=== PATIENT | male | born 1955 | race Hispanic/Latino ===

== ENCOUNTER 2024-12-24 08:00 | Inpatient (IN) | payer OTHER, MEDICAID ==
[~2024-12-24] VITALS: Ht 175.3 cm; Wt 96.9 kg
[2024-12-24 11:47] LABS: IMMATURE GRANULOCYTE ABSOLUTE 0.03 K/uL (0-1); NUCLEATED RED BLOOD CELLS 0.0 % (0.0-0.19); PLATELET COUNT (AUTO) 343 K/uL (130-400); RED BLOOD CELL COUNT(AUTO) 4.73 MIL/uL (4.50-6.20); RED CELL DISTRIBUTION WIDTH 19.5 % (11.0-15.5); WHITE BLOOD COUNT (AUTO) 8.4 K/uL (4.8-10.8)
--- NOTE | 2024-12-24 11:47 | EKG ---
[facility] Test Date: 2024-12-24 Test Time: 11:33:22 Pat Name: KYLE CHASE Department: Room: 213 Gender: M Center Medical Specialist: [id number] : 1955 Requested By: KANE BHAKTA Order Number: [id number] Reading MD: Bartolo Mercado Measurements Intervals [place] Rate: 43 P: 0 AK: 0 QRS: -112 QRSD: 172 T: 0 QT: 684 QTc: 582 Interpretive Statements Atrial fibrillation Right bundle branch block Inferolateral infarct, old No previous ECG available for comparison Electronically Signed On 12-25-2024 16:03:00 CDT by Bartolo Mercado Please click the below link to view image of tracing.
[2024-12-24 12:05] LABS: INR 1.04 (0.85-1.15)
[2024-12-24 12:06] LABS: ASPARTATE AMINOTRANSFERASE 19.0 U/L (10-37); CREATININE 1.1 mg/dL (0.5-1.3); GLOMERULAR FILTR. RATE CALC 72.0 mL/min (>90); GLUCOSE,RANDOM 116.0 mg/dL (70-105); LDL DIRECT 61.0 mg/dL (0-99); SODIUM SERUM 132.0 mmol/L (136-145); TOTAL PROTEIN, SERUM 7.7 g/dL (6.0-8.3); UREA NITROGEN, BLOOD 15.0 mg/dL (7-18)
[2024-12-24 12:37] VITALS: BP 128/61; PULSE 50; RESP 17; TEMP 97.5
[2024-12-24] MEDS ORDERED: DAPA5TAB PO (12:42)
[2024-12-24] MEDS ORDERED: AMLO-257 PO (12:42)
[2024-12-24] MEDS ORDERED: APIX5TAB PO (12:42)
[2024-12-24] MEDS ORDERED: OMEP40CA21 PO (12:42)
[2024-12-24] MEDS ORDERED: ATOR20TA65 PO (12:42)
[2024-12-24] MEDS ORDERED: SACU1TAB PO (12:42)
[2024-12-24] MEDS ORDERED: IRON PO (12:42)
[2024-12-24] MEDS ORDERED: ISOS30TA92 PO (12:42)
--- NOTE | 2024-12-24 12:52 | HMCIMG ---
CHEST 1VW REASON: PREOP COMPARISON: None. FINDINGS: Single view of the chest was obtained. Lungs demonstrated diffuse interstitial fibrosis. Underlying interstitial pulmonary edema cannot be excluded.. There is cardiomegaly.. There is no pulmonary vascular congestion. Mediastinum and bony thorax appear unremarkable. There is a moderate-sized hiatal hernia. IMPRESSION: 1. Cardiomegaly 2. Prominence of interstitium suggesting of interstitial fibrosis but underlying disease or pulmonary edema cannot be excluded 3. There is a moderate-sized hiatal hernia.
[2024-12-24 13:32] LABS: ABG BASE EXCESS -2.8 mmol/L (-2.0-3.0); ABG HCO3 20.8 mmol/L (21.0-28.0); ABG OXYGEN SATURATION 91.6 % (94.0-98.0); ABG PCO2 32 mmHg (35-48); ABG PH 7.431 (7.350-7.450); CARBON MONOXIDE 1.3 % (0.5-1.5); DEVICE COMMENT RR CRYSTAL; PO2, ARTERIAL BG 63.6 mmHg (83.0-108.0); TEMPERATURE, CELSIUS BG 37.0 CELSIUS (35.5-37.0); VENT MODE, BG ROOM AIR (ROOM AIR)
--- NOTE | 2024-12-24 13:47 | NUR ---
PREOP INCENTIVE SPIROMETRY DONE BY AVERY CARDOZO
--- NOTE | 2024-12-24 13:51 | HMCIMG ---
EXAM: US Duplex Bilateral Carotid and Vertebral Arteries. CLINICAL HISTORY: SURGERY DATE [id number] TECHNIQUE: Real-time ultrasound scan of the bilateral carotid and vertebral arteries, 2-D ramirez scale, with color Doppler flow and spectral waveform analysis. COMPARISON: None provided. FINDINGS: Right Common Carotid Artery (CCA): PSV: 91 cm/s Soft calcified plaque. No occlusion or hemodynamically significant stenosis. Right Internal Carotid Artery (ICA): PSV: 161 cm/s ICA/CCA ratio: 1.8 (within normal limits). No occlusion or significant stenosis. Right External Carotid Artery (ECA): PSV: 129 cm/s Normal antegrade flow; no occlusion. Right Vertebral Artery: PSV: 39.0 cm/s Antegrade flow. Left Common Carotid Artery (CCA): PSV: 137 cm/s, raised. Soft calcified plaque. No occlusion or hemodynamically significant stenosis. Left Internal Carotid Artery (ICA): PSV: 126 cm/s ICA/CCA ratio: 0.9 (within normal limits). No occlusion or significant stenosis. Left External Carotid Artery (ECA): PSV: 205 cm/s, raised. Normal antegrade flow; no occlusion. Left Vertebral Artery: PSV: 62.0 cm/s Antegrade flow. SOFT TISSUES: No incidental abnormalities. IMPRESSION: 1. No hemodynamically significant stenosis in bilateral carotid or vertebral arteries. /[place]
--- NOTE | 2024-12-24 14:12 | NUR ---
REPORT REPORTED ABGS/PULMONARY FUNCTION TEST/CBC/BNP/CMP/CXR TO DELICIA ABRAHAM RN/DR SANTIAGO. DR SANTIAGO ALSO REVIEWED EKG. OK TO PROCEED
[2024-12-25] VITALS (86 sets, daily range): BP systolic 90–241; BP diastolic 35–238; PULSE 46–88; RESP 8–27; TEMP 96.9–99.1; O2SAT 97–100
[2024-12-25] MEDS ORDERED: HEParin-NS 1,000 UNIT/500 ML 500 ML IV ONE (06:25)
[2024-12-25] MEDS ORDERED: PAPAVERINE HCL 30 MG/ML 2ML VIAL ONE (06:25)
[2024-12-25] MEDS: 0.9%NACL 1000ML 1,000 ML IV ONE (07:26)
[2024-12-25] MEDS ORDERED: NITROGLYCERIN 50MG/D5W 250ML 1 BOT ONE (07:29)
[2024-12-25] MEDS ORDERED: DELNIDO FORMULA 1 BAG IV ONE (07:48)
[2024-12-25] MEDS ORDERED: LIDOCAINE PF 100MG/5ML (2%) SYRINGE 5ML ONE (07:55)
[2024-12-25] MEDS ORDERED: PROTamine SULFate 10 MG/ML 25ML VIAL IV ONE (07:55)
[2024-12-25] MEDS ORDERED: SODIUM BICARB 50MEQ 50ML VIAL 200 ML ONE (07:55)
[2024-12-25] MEDS ORDERED: NOREPINEPHRINE BITARTRATE 1 MG/1 ML ML IV ONE (07:55)
[2024-12-25] MEDS ORDERED: MIDAZOLAM HCL 1 MG/ML 2ML VIAL ONE (07:56)
[2024-12-25] MEDS ORDERED: MAGNESIUM HYDROXIDE 30 ML/UDCUP PO PRN (08:00)
[2024-12-25] MEDS ORDERED: LACTULOSE 20 GM/30 ML UDCUP PO PRN (08:00)
[2024-12-25] MEDS ORDERED: GLUCAGON 1MG KIT 1 MG ML IM PRN (08:30)
[2024-12-25] MEDS ORDERED: NOREPINEPHRINE BITARTRATE 8 MG in DEXTROSE 5%-WATER 250 ML IV PRN (08:30)
[2024-12-25] MEDS ORDERED: NITROGLYCERIN 50MG/D5W 250ML 250 BOT IV SCH (08:30)
[2024-12-25] MEDS: PAPAVERINE HCL 30 MG/ML 2ML VIAL IRRIG ONE (08:30)
[2024-12-25] MEDS ORDERED: DEXTROSE 50%-WATER 50 ML DISP.SYRIN IV PRN (08:30)
[2024-12-25] MEDS ORDERED: 0.9%NACL 10ML VIAL IVP PRN (08:30)
[2024-12-25] MEDS ORDERED: 0.9% NACL 500ML IV.SOLN 500 ML IV SCH (08:30)
[2024-12-25] MEDS: ENOXAPARIN SODIUM 30 MG/0.3 ML SQ SCH (09:00)
[2024-12-25 09:13] LABS: ABG BASE EXCESS -4.0 mmol/L (-2.0-3.0); ABG HCO3 21.9 mmol/L (21.0-28.0); ABG OXYGEN SATURATION 99.7 % (94.0-98.0); ABG PCO2 43 mmHg (35-48); ABG PH 7.324 (7.350-7.450); CARBON MONOXIDE 1.1 % (0.5-1.5); DEVICE COMMENT 1; PO2, ARTERIAL BG 378.4 mmHg (83.0-108.0); TEMPERATURE, CELSIUS BG 37.0 CELSIUS (35.5-37.0)
--- NOTE | 2024-12-25 10:00 | NUR ---
CABG TODAY. Addendum: 12/25/24 at 1514 by PARADISE CAAL PT Amended: Links added.
[2024-12-25 10:08] LABS: ABG BASE EXCESS -8.0 mmol/L (-2.0-3.0); ABG HCO3 20.0 mmol/L (21.0-28.0); ABG OXYGEN SATURATION 88.7 % (94.0-98.0); ABG PCO2 54 mmHg (35-48); ABG PH 7.190 (7.350-7.450); CARBON MONOXIDE 1.2 % (0.5-1.5); DEVICE COMMENT 2; PO2, ARTERIAL BG 70.8 mmHg (83.0-108.0); TEMPERATURE, CELSIUS BG 37.0 CELSIUS (35.5-37.0)
[2024-12-25] MEDS ORDERED: GLYCOPYRROLATE 0.2 MG/ML 5 ML VIAL ONE (10:30)
[2024-12-25 11:03] LABS: ABG BASE EXCESS -5.7 mmol/L (-2.0-3.0); ABG HCO3 20.2 mmol/L (21.0-28.0); ABG OXYGEN SATURATION 99.9 % (94.0-98.0); ABG PCO2 41 mmHg (35-48); ABG PH 7.309 (7.350-7.450); CARBON MONOXIDE 1.3 % (0.5-1.5); DEVICE COMMENT 3; PO2, ARTERIAL BG 264.9 mmHg (83.0-108.0); TEMPERATURE, CELSIUS BG 37.0 CELSIUS (35.5-37.0)
[2024-12-25] MEDS ORDERED: SODIUM BICARB 50MEQ 50ML VIAL 250 ML ONE (11:09)
[2024-12-25 11:40] LABS: ABG BASE EXCESS -3.8 mmol/L (-2.0-3.0); ABG HCO3 22.5 mmol/L (21.0-28.0); ABG OXYGEN SATURATION 99.1 % (94.0-98.0); ABG PCO2 47 mmHg (35-48); ABG PH 7.302 (7.350-7.450); CARBON MONOXIDE 1.0 % (0.5-1.5); PO2, ARTERIAL BG 203.4 mmHg (83.0-108.0); TEMPERATURE, CELSIUS BG 37.0 CELSIUS (35.5-37.0); VENT MODE, BG AMBU TRANSPORT (ROOM AIR)
[2024-12-25] MEDS: SODIUM BICARB 50MEQ 50ML VIAL IV PRN (11:54)
[2024-12-25] MEDS: VASOpressin 20 UNITS/ML 1ML Vi 40 UNITS in 0.9%NACL 50ML 40 ML IV SCH (11:58)
[2024-12-25 12:04] LABS: CREATININE 1.0 mg/dL (0.5-1.3); GLOMERULAR FILTR. RATE CALC 81.0 mL/min (>90); GLUCOSE,RANDOM 267.0 mg/dL (70-105); PHOSPHORUS 5.0 mg/dL (2.5-4.9); SODIUM SERUM 140.0 mmol/L (136-145); UREA NITROGEN, BLOOD 14.0 mg/dL (7-18)
[2024-12-25] MEDS: INSULIN REGULAR, HUMAN 3ML 100 UNIT in 0.9%NACL 100ML 99 ML IV SCH (12:10)
[2024-12-25] MEDS: 0.9%NACL 1000ML 1,000 ML IV SCH (12:13)
[2024-12-25] MEDS: FAMOTIDINE 20MG VIAL IV SCH (12:15)
--- NOTE | 2024-12-25 12:16 | HMCIMG ---
CHEST 1VW REASON: s/p CABG COMPARISON: Previous surgery chest radiograph from 12/24/2024 is available. FINDINGS: Study demonstrate the cardiac silhouette is within limits of normal with median sternotomy. There is diffuse interstitial pulmonary edema. The support lines including endotracheal tube left subclavian vascular sheath, left-sided chest tube and nasogastric tubes are in satisfactory position. IMPRESSION: 1 status post median sternotomy with cardiac revascularization procedure 2. Diffuse interstitial pulmonary edema 3. Support lines are in satisfactory position.
--- NOTE | 2024-12-25 12:21 | HMCIMG ---
CHEST 1VW REASON: s/p CABG reposition of ET COMPARISON: Earlier right radiograph from 11/24/2024 is available. FINDINGS: There is mild cardiomegaly mediastinum. There is diffuse interstitial pulmonary edema which is unchanged from earlier radiograph. Other support lines including endotracheal tube and nasogastric tube left-sided chest tube and left subclavian vascular sheath are in satisfactory position.. IMPRESSION: 1 support lines are in satisfactory position 2. Cardiomegaly with median sternotomy 3. Interstitial pulmonary edema which is unchanged from earlier radiograph..
[2024-12-25 12:31] LABS: NUCLEATED RED BLOOD CELLS 0.0 % (0.0-0.19); PLATELET COUNT (AUTO) 307.0 K/uL (130-400); RED BLOOD CELL COUNT(AUTO) 3.87 MIL/uL (4.50-6.20); RED CELL DISTRIBUTION WIDTH 18.8 % (11.0-15.5); WHITE BLOOD COUNT (AUTO) 24.1 K/uL (4.8-10.8)
--- NOTE | 2024-12-25 12:46 | HP ---
[facility] HISTORY & PHYSICAL Date Patient Seen: Dec 25, 2024 Time of Visit: 12:31 Supervising Physician: Berto Alba MD Primary Care Physician: Nahun Delarosa Outpatient Specialists: Dr Mercado (cardiology) Inpatient Consults: DR Bartolo FOLEY Attending physician: Dr. Bhakta PROBLEM LIST: CAD status post CABG x2 w/ GIANNA clip placement 12/25/[address] Bhakta Pacemaker dependent via epicardial leads Diastolic heart failure with the EF of 30-35% PER intraoperative MAIRA Intraoperative Afib RVR cardioverted x 2 Postop pulmonary edema Postoperative acute on chronic iron-deficiency anemia, POA Hyperglycemia with a A1c of 6.0 Electrolyte derangement (hypokalemia, hyperphosphatemia, hypomagnesemia) Cardiomyopathy Cardiomegaly Obesity BMI of 35.4 Comorbidities: Restrictive lung disease Essential hypertension Hyperlipidemia Atrial fibrillation on anticoagulation with the Eliquis last dose on 12/19/24 Iron-deficiency Chronic anemia Arthritis Hernia Former greater than 10 year smoker HPI: This is an obese, 69-year-old male with a past medical history of coronary artery disease, essential hypertension, arthritis, and restrictive pulmonary disease who presented to [facility] for elective CABG. Patient underwent CABG x2 and left atrial appendage clip today by Dr. Bhakta. Patient was seen and evaluated in room 213 in the ICU postop. Patient is currently on mechanical ventilation with settings of SIMV tidal volume of 650 respiratory rate of 12 FiO2 of 100% and PEEP of five. Saturating 100% on the monitor with a blood pressure of 88/45 map of 60 currently being paced at 80 heart rate via epicardial clips. Patient is receiving multiple infusion drips which include insulin at 5 units per hour, vasopressin at 0.02 units/minute, Levophed at 10 micrograms/minute, and epinephrine at 0.1 mcg/kg per minute. Chest tube in place with output of 160 mL sanguinous drainage in the last 20 minutes. There is minimal urine output via Astorga catheter. Cordis central line to left subclavian, left radial arterial line and ET tube which appears to be 6 cm above the karyn and a chest x-ray and has already being pushed in by RT a proximally 2 cm. Chest x-ray also shows bilateral pulmonary edema. Left leg is wrapped in place which is the harvesting extremity. Bilateral pedal pulses per Doppler. Is still appears to be sedated postop. We will continue to follow CV surgeon protocol and recommendations. Preop laboratory showed an H&H of 9.8/34.1 with a platelet count of 243 K. today's chemistries shows a sodium of 140 potassium of 3.3 glucose of 267 mg/dL in phosphorus of 5. On ABG patient has been pH of 7.30 pCO2 of 47 PO2 of 203 and bicarb 22.5. Lactic acid trending down to 4.04. PAST MEDICAL HX: see above PAST SURGICAL HX: noncontributory SOCIAL HISTORY: No tobacco, ETOH, or illicit drug use Coded Allergies: No Known Drug Allergies (Unverified Allergy, Unknown, 12/24/24) REVIEW OF SYSTEMS: Unable to perform due to patient's intubated. Post CABG. PHYSICAL EXAM: GENERAL: Intubated postop still sedated. HEENT: Sclera non icteric, moist mucosa NECK: Supple, no JVD, trachea midline LUNGS: Coarse crackles breath sounds bilaterally. No wheezes. Chest tube in place draining sanguinous HEART: Paced at 80 beats per minute via epicardial leads. ABD: Abdomen soft, nontender. Bowel sounds present EXT: No clubbing cyanosis or edema, left leg Wilfrid wrap. Bilateral pulses with Doppler. NEURO: Intubated due sedated postop Vital Signs (last 8hr) Date Time Temp Pulse Resp B/P (MAP) Pulse Ox O2 Delivery O2 Flow Rate FiO2 12/25/24 11:58 97/47 12/25/24 06:40 97.0 46 18 148/67 97 Room Air LABS: Hematology Labs: Test 12/24/24 11:30 Range/Units White Blood Count 8.4 4.8-10.8 K/uL Red Blood Count 4.73 4.50-6.20 MIL/uL Hemoglobin 9.8 L 14.0-18.0 g/dL Hematocrit 34.1 L 42-54 % Mean Corpuscular Volume 72.1 L 79-99 fL Mean Corpuscular Hemoglobin 20.7 L 27.0-33.0 pg Mean Corpuscular Hemoglobin Concent 28.7 L 32.0-36.0 g/dL Red Cell Distribution Width 19.5 H 11.0-15.5 % Platelet Count 343 130-400 K/uL Mean Platelet Volume 9.1 7.5-10.5 fL Immature Granulocyte % (Auto) 0.4 0-1 % Neutrophils (%) (Auto) 63.5 40.0-77.0 % Lymphocytes (%) (Auto) 18.0 L 21.0-51.0 % Monocytes (%) (Auto) 9.7 3.0-13.0 % Eosinophils (%) (Auto) 7.6 0.0-8.0 % Basophils (%) (Auto) 0.8 0.0-5.0 % Neutrophils # (Auto) 5.4 1.8-7.7 K/uL Lymphocytes # (Auto) 1.5 1.0-4.8 K/uL Monocytes # (Auto) 0.8 0.1-1.0 K/uL Eosinophils # (Auto) 0.64 0.00-0.70 K/uL Basophils # (Auto) 0.07 0.00-0.20 K/uL Absolute Immature Granulocyte (auto 0.03 0-1 K/uL Nucleated Red Blood Cells 0.0 0.0-0.19 % Red Blood Cell Morphology See comments Chemistry Labs: Test 12/25/24 11:40 12/24/24 11:30 Range/Units Sodium Level 140 136-145 mmol/L Potassium Level 3.3 L 3.5-5.1 mmol/L Chloride Level 103 101-111 mmol/L Carbon Dioxide Level 25 21-32 mmol/L Blood Urea Nitrogen 14 7-18 mg/dL Creatinine 1.0 0.5-1.3 mg/dL Glomerular Filtration Rate Calc 81 >90 mL/min Random Glucose 267 H 70-105 mg/dL Total Calcium 8.7 8.5-10.1 mg/dL Phosphorus Level 5.0 H 2.5-4.9 mg/dL Magnesium Level 1.90 1.80-2.40 mg/dL Hemoglobin A1c 6.0 4.0-6.0 % Estimated Average Glucose (eAG) 126 70-126 mg/dL Total Bilirubin 0.4 0.2-1.0 mg/dL Aspartate Amino Transf (AST/SGOT) 19 10-37 U/L Alanine Aminotransferase (ALT/SGPT) 18 12-78 U/L Alkaline Phosphatase 94 50-136 U/L B-Type Natriuretic Peptide 457 H 0-100 pg/mL Total Protein 7.7 6.0-8.3 g/dL Albumin 3.4 L 3.5-5.0 g/dL Triglycerides Level 97 30-200 mg/dL Cholesterol Level 120 <200 mg/dL LDL Cholesterol 61 0-99 mg/dL HDL Cholesterol 49 29-71 mg/dL Coagulation Labs: Test 12/24/24 11:30 Range/Units Prothrombin Time 11.0 9.6-11.6 SEC Prothromb Time International Ratio 1.04 0.85-1.15 Activated Partial Thromboplast Time 31.1 26.3-35.5 SEC DIAGNOSTICS / RADIOLOGY RESULTS: Signed PATIENT: KYLE CHASE MR#: [id number] : 1955 SEX: M AGE: 69 LOCATION: 2CV ORDER [id number] STATUS: ADM IN REPORT#: [id number] SERVICE 1152 REASON: s/p CABG reposition of ET ORDERING PHYSICIAN: KANE BHAKTA MD PROCEDURE: CXR1VW - CHEST 1VW CHEST 1VW REASON: s/p CABG reposition of ET COMPARISON: Earlier right radiograph from 11/24/2024 is available. FINDINGS: There is mild cardiomegaly mediastinum. There is diffuse interstitial pulmonary edema which is unchanged from earlier radiograph. Other support lines including endotracheal tube and nasogastric tube left-sided chest tube and left subclavian vascular sheath are in satisfactory position.. IMPRESSION: 1 support lines are in satisfactory position 2. Cardiomegaly with median sternotomy 3. Interstitial pulmonary edema which is unchanged from earlier radiograph.. DICTATED BY: ERIC DENTON MD DATE: 12/25/24 1217 ELECTRONICALLY SIGNED BY: ERIC DENTON MD DATE: 12/25/[address] surgeon recommendations Follow cardiology recommendations Multimodal pain management Monitoring H&H Monitor chest tube output Chest x-ray in the morning Start SBT's as tolerated Monitor ABGs Transfuse if absolutely necessary to keep hemoglobin above 8 Maintain O2 sats greater than 92% Incentive spirometry once extubated A1C Glycemic control with goal of 80-180 Referral for cardiac rehabilitation Speech to eval once patient is extubated monitor electrolytes: K Goal of 4 Magnesium goal of 2 Replace accordingly NEURO: Minimize central acting medications as possible. Maintain fall precautions, adequate lighting during the day PULMONARY: Supplemental 02 as needed. Maintain aspiration precautions at all times CARDIOVASCULAR: Follow hemodynamics. Vital signs per facility protocol GI & NUTRITION: Continue with nutritional support. Continue stool softeners and laxatives as needed. KIDNEYS & ELECTROLYTES: Strict monitoring of intake, output and overall fluid balance. Avoid nephrotoxic medications to the extent possible. Medications to be dosed according to renal function. Monitor electrolytes and replace as needed ENDOCRINE: Maintain blood glucose between 100-180 at all times. Hypoglycemia protocol in place INFECTIOUS DISEASE: Trend temperature, WBC and procalcitonin level Follow cultures, deescalate antibiotics as soon as possible. Panculture if new onset fever ONCOLOGY/HEMATOLOGY/COAGULATION: Monitor for s/s of bleeding Monitor hemoglobin, coagulation studies as needed SKIN: Pressure ulcer prevention per facility protocol Specialty mattress ORTHO/REHAB: Continue PT/OT Prophylaxis: Continue GI and DVT prophylaxis Code Status: Full Resuscitation Disposition: TBD Other: Total patient care time exceeds 35 minutes excluding all procedures. ATTESTATION BY PHYSICIAN The patient has been seen and evaluated, the case has been discussed with the INTELLIGENCE DIRECTOR, I agree with the clinical findings and plan of care. Berto Alba MD, [facility] Dec 25, 2024 12:46
[2024-12-25 12:49] LABS: ABG BASE EXCESS -3.2 mmol/L (-2.0-3.0); ABG HCO3 23.2 mmol/L (21.0-28.0); ABG OXYGEN SATURATION 99.6 % (94.0-98.0); ABG PCO2 48 mmHg (35-48); ABG PH 7.301 (7.350-7.450); CARBON MONOXIDE 0.9 % (0.5-1.5); PO2, ARTERIAL BG 364.8 mmHg (83.0-108.0); TEMPERATURE, CELSIUS BG 37.0 CELSIUS (35.5-37.0); VENT MODE, BG SIMV-VC PS10 (ROOM AIR)
[2024-12-25] MEDS: MAGNESIUM 2GM PREMIX 50ML 50 ML IV PRN (13:00)
[2024-12-25 13:03] LABS: INR 1.14 (0.85-1.15)
[2024-12-25] MEDS: ASPIRIN 81MG CHEW TAB NG ONE (13:15)
[2024-12-25] MEDS: ALBUMIN (HUMAN) 5% 250 ML IV PRN (13:21)
[2024-12-25 13:42] LABS: ABG BASE EXCESS 1.8 mmol/L (-2.0-3.0); ABG HCO3 28.5 mmol/L (21.0-28.0); ABG OXYGEN SATURATION 97.3 % (94.0-98.0); ABG PCO2 56 mmHg (35-48); ABG PH 7.325 (7.350-7.450); CARBON MONOXIDE 1.3 % (0.5-1.5); PO2, ARTERIAL BG 106.3 mmHg (83.0-108.0); TEMPERATURE, CELSIUS BG 37.0 CELSIUS (35.5-37.0); VENT MODE, BG SIMV-VC PS10 (ROOM AIR)
--- NOTE | 2024-12-25 14:02 | EKG ---
[facility] Test Date: 2024-12-25 Test Time: 11:47:45 Pat Name: KYLE CHASE Department: 2CV Room: 213 1 Gender: M Gis Physical Scientist: Gilberto AVILA : 1955 Requested By: KANE BHAKTA Order Number: [id number] Reading MD: Bartolo Mercado Measurements Intervals [place] Rate: 80 P: 0 IL: 131 QRS: 60 QRSD: 215 T: 0 QT: 580 QTc: 669 Interpretive Statements Ventricular-paced rhythm Compared to ECG 12/24/2024 11:33:22 Atrial fibrillation no longer present Right bundle-branch block no longer present Myocardial infarct finding no longer present Electronically Signed On 12-25-2024 16:06:41 CDT by Bartolo Mercado Please click the below link to view image of tracing.
[2024-12-25 14:33] LABS: ABG BASE EXCESS -0.5 mmol/L (-2.0-3.0); ABG HCO3 26.2 mmol/L (21.0-28.0); ABG OXYGEN SATURATION 97.4 % (94.0-98.0); ABG PCO2 54 mmHg (35-48); ABG PH 7.308 (7.350-7.450); CARBON MONOXIDE 0.9 % (0.5-1.5); PO2, ARTERIAL BG 114.5 mmHg (83.0-108.0); TEMPERATURE, CELSIUS BG 37.0 CELSIUS (35.5-37.0); VENT MODE, BG SIMV-VC PS10 (ROOM AIR)
--- NOTE | 2024-12-25 15:14 | CONS ---
Cardiac Consult Note CONSULT NOTE DATE OF SERVICE: REFERRING PROVIDER: ZAHIRA BARRAGAN MD REASON FOR CONSULT: Postoperative cardiovascular care HPI: 69-year-old female who is well known to us in the clinic who had a coronary angiogram revealing significant multivessel disease over the summer and is here today after having had surgical revascularization with a ENGLE to the LAD and a vein graft to the left circumflex system. Patient also had left atrial appendage ligated or removed. He is postop day 0. Currently sedated intubated on 3 pressor agents for maintenance of blood pressure. Chest tube output is minimal. Patient is moving upper extremities with some mild grimace taking place with movement. Last clinic evaluation in the office was in September 30 when he presented with a unstable angina at less than 20 ft of walking and it was recommended that he proceed with primary angiography revealing severe multivessel disease involving his left coronary system. ROS: Unobtainable PMHX: Multivessel disease status post CABG x2 postop day 0 Hypertension Dyslipidemia Persistent atrial fibrillation on chronic anticoagulation therapy with Eliquis Remote tobacco use Prior CVA Mild ischemic cardiomyopathy with an ejection fraction of 45-50% in September 2024 Lexiscan Cardiolite August 2023 revealing lateral and anterior wall ischemia PSHX: Inguinal inguinal hernia repair x3 FH: Positive for heart disease SOCIAL: Former smoker PHYSICAL EXAMINATION: GENERAL: Sedated intubated on 3 pressor agents HEENT: Normocephalic, atraumatic. CARDIAC: Positive S1 and S2. Distant heart sounds No murmurs. LUNGS: Clear to auscultation bilaterally. ABDOMEN: Bowel sounds present, soft, nontender. EXTREMITIES: No edema bilaterally. Entire entire left leg is wrapped and is site of graft harvest NEUROLOGIC: Cranial nerves 2-12 grossly intact. PSYCHIATRIC: Calm. ASSESSMENT: Severe multivessel coronary artery disease Status post coronary artery bypass grafting x2 on December 25, 2024 engle-lad, SVG- left circumflex system with left atrial appendage ligation PLAN: Currently we will continue regimen of medications. No other changes at this time. Postoperatively he is on 3 pressor agents which will be continued and managed by surgical team. We will continue to manage and assist through the weekend. Vital Signs 12/25/24 12/25/24 12/25/24 12/25/24 06:40 11:30 11:36 11:41 Temp 97.0 Pulse 46 80 80 Resp 18 12 12 B/P (MAP) 148/67 98/47 (64) 92/49 (63) 98/46 (63) Pulse Ox 97 100 100 O2 Delivery Room Air FiO2 100 100 100 12/25/24 12/25/24 12/25/24 12/25/24 11:45 11:56 11:58 12:00 Pulse 85 80 80 Resp 14 15 17 B/P (MAP) 90/57 (68) 104/49 (67) 97/47 105/50 (68) 103/49 (67) Pulse Ox 100 100 100 FiO2 100 100 100 12/25/24 12/25/24 12/25/24 12/25/24 12:11 12:15 12:27 12:30 Pulse 80 80 80 80 Resp 17 17 17 17 B/P (MAP) 115/53 (73) 122/53 (76) 97/41 (59) 98/40 (59) 114/57 (76) 103/44 (63) Pulse Ox 100 100 100 100 FiO2 100 100 100 100 12/25/24 12/25/24 12/25/24 12/25/24 12:41 12:45 12:47 12:56 Pulse 80 80 80 Resp 17 17 B/P (MAP) 112/40 (64) 108/39 (62) 109/39 (62) 101/51 (68) 101/48 (65) Pulse Ox 100 100 100 FiO2 100 100 50 12/25/24 12/25/24 12/25/24 13:00 13:11 13:42 Pulse 80 80 80 B/P (MAP) 110/39 (62) 108/40 (62) 101/49 (66) Pulse Ox 100 100 FiO2 50 Laboratory Tests Test 12/25/24 09:11 12/25/24 10:06 12/25/24 11:01 12/25/24 11:38 Blood Gas Specimen Type Arterial Arterial Arterial Arterial Arterial Blood pH 7.324 (7.350-7.450) 7.190 (7.350-7.450) 7.309 (7.350-7.450) 7.302 (7.350-7.450) Arterial Blood Partial Pressure CO2 43 mmHg (35-48) 54 mmHg (35-48) 41 mmHg (35-48) 47 mmHg (35-48) Arterial Blood Partial Pressure O2 378.4 mmHg (83.0-108.0) 70.8 mmHg (83.0-108.0) 264.9 mmHg (83.0-108.0) 203.4 mmHg (83.0-108.0) Arterial Blood HCO3 21.9 mmol/L (21.0-28.0) 20.0 mmol/L (21.0-28.0) 20.2 mmol/L (21.0-28.0) 22.5 mmol/L (21.0-28.0) Arterial Blood Oxygen Saturation 99.7 % (94.0-98.0) 88.7 % (94.0-98.0) 99.9 % (94.0-98.0) 99.1 % (94.0-98.0) Arterial Blood Base Excess -4.0 mmol/L (-2.0-3.0) -8.0 mmol/L (-2.0-3.0) -5.7 mmol/L (-2.0-3.0) -3.8 mmol/L (-2.0-3.0) Hemoglobin (Blood Gas) 9.6 g/dL (13.5-17.5) 9.5 g/dL (13.5-17.5) 9.0 g/dL (13.5-17.5) 9.2 g/dL (13.5-17.5) Sodium (Blood Gas) 134 MMOL/L (136-145) 134 MMOL/L (136-145) 136 MMOL/L (136-145) 138 MMOL/L (136-145) Bedside Potassium (Blood Gas) 4.0 MMOL/L (3.4-4.5) 3.6 MMOL/L (3.4-4.5) 3.2 MMOL/L (3.4-4.5) 3.3 MMOL/L (3.4-4.5) Bedside Chloride (Blood Gas) 104 MMOL/L (98-107) 105 MMOL/L (98-107) 104 MMOL/L (98-107) 104 MMOL/L (98-107) Bedside Glucose (Blood Gas) 119 MG/DL (65-95) 160 MG/DL (65-95) 277 MG/DL (65-95) 268 MG/DL (65-95) Bedside Ionized Calcium (Blood Gas) 1.27 MMOL/L (1.15-1.33) 1.23 MMOL/L (1.15-1.33) 1.26 MMOL/L (1.15-1.33) 1.20 MMOL/L (1.15-1.33) Bedside Lactic Acid (Blood Gas) 1.15 MMOL/L (0.36-0.75) 1.97 MMOL/L (0.36-0.75) 4.11 MMOL/L (0.36-0.75) 4.04 MMOL/L (0.36-0.75) Blood Gas Temperature 37.0 CELSIUS (35.5-37.0) 37.0 CELSIUS (35.5-37.0) 37.0 CELSIUS (35.5-37.0) 37.0 CELSIUS (35.5-37.0) FiO2 100.0 % 100.0 % 100.0 % 100.0 % Blood Gas Specimen Comment 1 2 3 A-LINE EUGENIA Blood Gas Flow-by 15.00 L/min (0.00-15.00) Blood Gas Vent Mode AMBU TRANSPORT (ROOM AIR) Test 12/25/24 11:40 12/25/24 12:46 12/25/24 13:40 12/25/24 14:31 White Blood Count 24.1 K/uL (4.8-10.8) Red Blood Count 3.87 MIL/uL (4.50-6.20) Hemoglobin 8.3 g/dL (14.0-18.0) Hematocrit 27.7 % (42-54) Mean Corpuscular Volume 71.6 fL (79-99) Mean Corpuscular Hemoglobin 21.4 pg (27.0-33.0) Mean Corpuscular Hemoglobin Concent 30.0 g/dL (32.0-36.0) Red Cell Distribution Width 18.8 % (11.0-15.5) Platelet Count 307 K/uL (130-400) Mean Platelet Volume 9.9 fL (7.5-10.5) Nucleated Red Blood Cells 0.0 % (0.0-0.19) Prothrombin Time 11.9 SEC (9.6-11.6) Prothromb Time International Ratio 1.14 (0.85-1.15) Activated Partial Thromboplast Time 27.9 SEC (26.3-35.5) Sodium Level 140 mmol/L (136-145) Potassium Level 3.3 mmol/L (3.5-5.1) Chloride Level 103 mmol/L (101-111) Carbon Dioxide Level 25 mmol/L (21-32) Blood Urea Nitrogen 14 mg/dL (7-18) Creatinine 1.0 mg/dL (0.5-1.3) Glomerular Filtration Rate Calc 81 mL/min (>90) Random Glucose 267 mg/dL (70-105) Total Calcium 8.7 mg/dL (8.5-10.1) Phosphorus Level 5.0 mg/dL (2.5-4.9) Magnesium Level 1.90 mg/dL (1.80-2.40) Blood Gas Specimen Type Arterial Arterial Arterial Arterial Blood pH 7.301 (7.350-7.450) 7.325 (7.350-7.450) 7.308 (7.350-7.450) Arterial Blood Partial Pressure CO2 48 mmHg (35-48) 56 mmHg (35-48) 54 mmHg (35-48) Arterial Blood Partial Pressure O2 364.8 mmHg (83.0-108.0) 106.3 mmHg (83.0-108.0) 114.5 mmHg (83.0-108.0) Arterial Blood HCO3 23.2 mmol/L (21.0-28.0) 28.5 mmol/L (21.0-28.0) 26.2 mmol/L (21.0-28.0) Arterial Blood Oxygen Saturation 99.6 % (94.0-98.0) 97.3 % (94.0-98.0) 97.4 % (94.0-98.0) Arterial Blood Base Excess -3.2 mmol/L (-2.0-3.0) 1.8 mmol/L (-2.0-3.0) -0.5 mmol/L (-2.0-3.0) Hemoglobin (Blood Gas) 9.5 g/dL (13.5-17.5) 9.3 g/dL (13.5-17.5) 9.6 g/dL (13.5-17.5) Sodium (Blood Gas) 139 MMOL/L (136-145) 142 MMOL/L (136-145) 142 MMOL/L (136-145) Bedside Potassium (Blood Gas) 3.6 MMOL/L (3.4-4.5) 3.5 MMOL/L (3.4-4.5) 3.3 MMOL/L (3.4-4.5) Bedside Chloride (Blood Gas) 102 MMOL/L (98-107) 102 MMOL/L (98-107) 103 MMOL/L (98-107) Bedside Glucose (Blood Gas) 266 MG/DL (65-95) 272 MG/DL (65-95) 264 MG/DL (65-95) Bedside Ionized Calcium (Blood Gas) 1.21 MMOL/L (1.15-1.33) 1.18 MMOL/L (1.15-1.33) 1.24 MMOL/L (1.15-1.33) Bedside Lactic Acid (Blood Gas) 3.72 MMOL/L (0.36-0.75) 5.10 MMOL/L (0.36-0.75) 6.45 MMOL/L (0.36-0.75) Blood Gas Temperature 37.0 CELSIUS (35.5-37.0) 37.0 CELSIUS (35.5-37.0) 37.0 CELSIUS (35.5-37.0) Blood Gas Respiration Rate 12.0 min. 12.0 min. 16.0 min. Blood Gas Vent Mode SIMV-VC PS10 (ROOM AIR) SIMV-VC PS10 (ROOM AIR) SIMV-VC PS10 (ROOM AIR) FiO2 100.0 % 50.0 % 50.0 % Blood Gas Tidal Volume 650 ml 650 ml 650 ml Blood Gas PEEP 5 cm H2O 5 cm H2O 5 cm H2O Blood Gas Specimen Comment A-LINE EUGENIA A-LINE EUGENIA A-LINE EUGENIA Current Medications Medications Dose Ordered Sig/Leonard Route PRN Reason Start Time Stop Time Status Last Admin Cefazolin Sodium 1 gm STK-MED ONCE .ROUTE 12/25/24 06:25 12/25/24 06:25 DC Heparin Sodium/ Sodium Chloride 500 ml @ As Directed STK-MED ONCE IV 12/25/24 06:25 12/25/24 06:25 DC Papaverine HCl 60 mg STK-MED ONCE .ROUTE 12/25/24 06:25 12/25/24 06:26 DC Cefazolin Sodium 2 gm STK-MED ONCE .ROUTE 12/25/24 07:05 12/25/24 07:11 DC Sodium Chloride 1,000 ml @ As Directed STK-MED ONCE IV 12/25/24 07:05 12/25/24 07:11 DC 12/25/24 07:26 Nitroglycerin/ Dextrose 1 ml @ As Directed STK-MED ONCE .ROUTE 12/25/24 07:29 12/25/24 07:34 DC Cardioplegic Solution 1 ml @ As Directed STK-MED ONCE IV 12/25/24 07:48 12/25/24 07:48 DC Protamine Sulfate 250 mg STK-MED ONCE IV 12/25/24 07:55 12/25/24 07:55 DC Lidocaine HCl 100 mg STK-MED ONCE .ROUTE 12/25/24 07:55 12/25/24 07:55 DC Heparin Sodium (Porcine) 10,000 unit STK-MED ONCE .ROUTE 12/25/24 07:55 12/25/24 07:55 DC Epinephrine HCl 1 mg STK-MED ONCE .ROUTE 12/25/24 07:55 12/25/24 07:55 DC Sodium Bicarbonate 200 ml @ As Directed STK-MED ONCE .ROUTE 12/25/24 07:55 12/25/24 07:55 DC Norepinephrine Bitartrate 4 mg STK-MED ONCE IV 12/25/24 07:55 12/25/24 07:55 DC Propofol 200 mg STK-MED ONCE IV 12/25/24 07:55 12/25/24 07:56 DC Fentanyl Citrate 1,000 mcg STK-MED ONCE IJ 12/25/24 07:56 12/25/24 07:56 DC Midazolam HCl 2 mg STK-MED ONCE .ROUTE 12/25/24 07:56 12/25/24 07:56 DC Rocuronium [place] 50 mg STK-MED ONCE .ROUTE 12/25/24 07:56 12/25/24 07:56 DC Acetaminophen 1,000 mg Q6H6 IV 12/25/24 12:00 12/26/24 11:59 12/25/24 13:17 Aspirin 81 mg ONCE ONCE NG 12/25/24 12:00 12/25/24 12:01 DC Aspirin 81 mg DAILY PO 12/26/24 09:00 01/25/25 08:59 Docusate Sodium 100 mg BID PO 12/25/24 21:00 01/24/25 20:59 Furosemide 20 mg Q12H PO 12/27/24 09:00 01/26/25 08:59 Furosemide 20 mg Q12H IV 12/26/24 09:00 12/27/24 08:59 Atorvastatin Calcium 40 mg HS PO 12/25/24 21:00 01/24/25 20:59 Enoxaparin Sodium 30 mg DAILY SQ 12/25/24 09:00 01/24/25 08:59 Metoprolol Tartrate 12.5 mg BID PO 12/27/24 09:00 01/26/25 08:59 Dexmedetomidine/ Sodium Chloride 400 mcg PROTOCOL IV 12/25/24 08:00 12/26/24 07:59 Ketamine HCl 500 mg STK-MED ONCE IJ 12/25/24 08:13 12/25/24 08:13 DC Sodium Chloride 1,000 ml @ 10 mls/hr ONCE IV 12/25/24 08:30 12/26/24 08:29 12/25/24 12:13 Sodium Chloride 500 ml @ 0 mls/hr AD IV 12/25/24 08:30 01/24/25 08:29 Nitroglycerin/ Dextrose 0 ml @ 0 mls/hr AD IV 12/25/24 08:30 12/28/24 08:29 Aminocaproic Acid 24998 mg/Sodium Chloride 310 ml @ 25 mls/hr AD IV 12/25/24 08:30 12/25/24 08:40 DC Insulin Human Regular 100 unit/ Sodium Chloride 100 ml @ 0 mls/hr AD IV 12/25/24 08:30 12/27/24 08:29 12/25/24 12:10 Cefazolin Sodium 2 gm Q8H IVPB 12/25/24 13:30 12/26/24 05:31 12/25/24 13:20 Famotidine 20 mg BID IV 12/25/24 09:00 01/24/25 08:59 12/25/24 12:15 Papaverine HCl 60 mg STK-MED ONCE IRRIG 12/25/24 08:30 12/25/24 10:08 DC 12/25/24 08:30 Cefazolin Sodium 1 gm STK-MED ONCE IRRIG 12/25/24 08:30 12/25/24 10:08 DC 12/25/24 08:30 Cefazolin Sodium 2 gm STK-MED ONCE IVPB 12/25/24 08:55 12/25/24 10:08 DC 12/25/24 08:55 Vasopressin 20 units STK-MED ONCE .ROUTE 12/25/24 10:14 12/25/24 10:15 DC Glycopyrrolate 1 mg STK-MED ONCE .ROUTE 12/25/24 10:30 12/25/24 10:30 DC Sodium Bicarbonate 250 ml @ As Directed STK-MED ONCE .ROUTE 12/25/24 11:09 12/25/24 11:10 DC Vasopressin 40 units/Sodium Chloride 40 ml @ 0 mls/hr PROTOCOL IV 12/25/24 12:00 01/24/25 11:59 12/25/24 11:58 Reported Medications Dapagliflozin Propanediol (Farxiga) 5 Mg Tablet, 5 MG PO DAILY, TAB 12/24/24 Apixaban (Eliquis) 5 Mg Tablet, 5 MG PO BID, TAB 12/24/24 [Iron] No Conflict Check, 45 MG PO WEEKLY 12/24/24 Sacubitril/Valsartan (Entresto 24 mg-26 mg Tablet) 24 Mg-26 Mg Tablet, 1 EACH PO BID, TAB 12/24/24 Amlodipine Besylate (Amlodipine Besylate) 5 Mg Tablet, 5 MG PO HS, TAB 12/24/24 Atorvastatin Calcium (Atorvastatin Calcium) 20 Mg Tablet, 20 MG PO HS, TAB 12/24/24 Isosorbide Mononitrate (Isosorbide Mononitrate ER) 30 Mg Tab.er.24h, 30 MG PO DAILY, TAB 12/24/24 Omeprazole (Omeprazole) 40 Mg Capsule.dr, 40 MG PO DAILY, CAP 12/24/24 ZAHIRA BARRAGAN MD Dec 25, 2024 15:14
--- NOTE | 2024-12-25 15:34 | NUR ---
SPEECH TRIGGER COMPLETED / INTUBATION Pt IS A 69 Y.O. MALE ADMITTED SECONDARY TO CAD. Pt HAS A PAST MEDICAL HISTORY SIGNIFICANT FOR CAD, HTN, ARTHRITIS AND RESTRICTIVE PULMONARY DISEASE. Pt CURRENTLY INTUBATED AND NPO. PLEASE REQUEST SPEECH THERAPY SERVICES FOR SKILLED BEDSIDE SWALLOW EVALUATION 24 HOURS POST EXTUBATION IF ANY S/S OF ASPIRATION ARISE WITH ORAL INTAKE. CARDIAC CARE NURSE COORDINATED WITH NURSE BELLO. ALL QUESTIONS ANSWERED AT THIS TIME. Addendum: 12/25/[address] [facility]TH[facility] BYRD Amended: Links added.
[2024-12-25 15:44] LABS: ABG BASE EXCESS -1.8 mmol/L (-2.0-3.0); ABG HCO3 24.1 mmol/L (21.0-28.0); ABG OXYGEN SATURATION 98.1 % (94.0-98.0); ABG PCO2 47 mmHg (35-48); ABG PH 7.332 (7.350-7.450); CARBON MONOXIDE 1.2 % (0.5-1.5); PO2, ARTERIAL BG 125.3 mmHg (83.0-108.0); TEMPERATURE, CELSIUS BG 37.0 CELSIUS (35.5-37.0); VENT MODE, BG SIMV-VC PS10 (ROOM AIR)
[2024-12-25 16:30] LABS: ABG BASE EXCESS 0.9 mmol/L (-2.0-3.0); ABG HCO3 26.7 mmol/L (21.0-28.0); ABG OXYGEN SATURATION 96.1 % (94.0-98.0); ABG PCO2 48 mmHg (35-48); ABG PH 7.360 (7.350-7.450); CARBON MONOXIDE 1.2 % (0.5-1.5); PO2, ARTERIAL BG 92.1 mmHg (83.0-108.0); TEMPERATURE, CELSIUS BG 37.0 CELSIUS (35.5-37.0); VENT MODE, BG SIMV-VC PS10 (ROOM AIR)
[2024-12-25 17:36] LABS: ABG BASE EXCESS -1.0 mmol/L (-2.0-3.0); ABG HCO3 24.5 mmol/L (21.0-28.0); ABG OXYGEN SATURATION 96.8 % (94.0-98.0); ABG PCO2 45 mmHg (35-48); ABG PH 7.358 (7.350-7.450); CARBON MONOXIDE 1.3 % (0.5-1.5); PO2, ARTERIAL BG 97.2 mmHg (83.0-108.0); TEMPERATURE, CELSIUS BG 37.0 CELSIUS (35.5-37.0); VENT MODE, BG SIMV-VC PS10 (ROOM AIR)
[2024-12-25 18:38] LABS: ABG BASE EXCESS 2.0 mmol/L (-2.0-3.0); ABG HCO3 27.9 mmol/L (21.0-28.0); ABG OXYGEN SATURATION 96.3 % (94.0-98.0); ABG PCO2 50 mmHg (35-48); ABG PH 7.362 (7.350-7.450); CARBON MONOXIDE 1.3 % (0.5-1.5); CPAP, BG 5 cm H2O; DEVICE COMMENT ALINE,RN LEO; PO2, ARTERIAL BG 91.6 mmHg (83.0-108.0); TEMPERATURE, CELSIUS BG 37.0 CELSIUS (35.5-37.0); VENT MODE, BG CPAP,5,5 (ROOM AIR)
[2024-12-25 19:56] LABS: ABG BASE EXCESS 1.5 mmol/L (-2.0-3.0); ABG HCO3 26.6 mmol/L (21.0-28.0); ABG OXYGEN SATURATION 97.6 % (94.0-98.0); ABG PCO2 44 mmHg (35-48); ABG PH 7.396 (7.350-7.450); CARBON MONOXIDE 1.3 % (0.5-1.5); PO2, ARTERIAL BG 104.5 mmHg (83.0-108.0); TEMPERATURE, CELSIUS BG 37.0 CELSIUS (35.5-37.0); VENT MODE, BG AM,40 (ROOM AIR)
--- NOTE | 2024-12-25 19:57 | OP ---
DATE OF PROCEDURE: 12/25/2024 OPERATIVE REPORT PREOPERATIVE DIAGNOSIS: Coronary artery disease. POSTOPERATIVE DIAGNOSIS: Coronary artery disease. PROCEDURE PERFORMED: 1. Ligation of atrial appendage for chronic atrial fibrillation. CHADS score greater than 3. 2. Off-pump CABG x 2, ENGLE to LAD, right saphenous vein graft to oblique marginal. 3. Temporary pacemaker wire. SURGEON: Efrain Dutton MD EXTRACT OPERATOR: OMAR Cavanaugh ANESTHESIA: Dr. Heller. CARDIOLOGY: Alix Mercado MD. ESTIMATED BLOOD LOSS: 400 mL. BLOOD UTILIZATION: None. DISPOSITION: Stable. INDICATIONS: This is a patient of Dr. Alix Mercado whom I had the opportunity to review the medical record, the cardiac catheterization, and the rest of the medical imaging. We both have discussed the case and agreed that the surgery is indicated and we have recommended. The patient has a dilated cardiomyopathy, which may or may not be ischemic in type. He has got left main coronary artery disease with 80% obstruction of the LAD and circumflex. I have had the opportunity to discuss with the patient the indications for surgery as well as the potential complications of the operation including, but not limited to postoperative bleeding, infection, stroke and/or . He understands this as well as the associated morbidity and mortality of the procedure as it relates to his own comorbidities and wishes to proceed with surgery. Plan for surgical revascularization. FINDINGS: At the time of surgery, the heart was quite enlarged. The right ventricle looked pale and had a large pulmonary artery. Last oblique margin was bypassed and the ENGLE was anastomosed to the proximal LAD distal to the first diagonal. The transesophageal echocardiogram demonstrates ventricular function about 30-35% with no clot in the left atrial appendage and the patient had chronic atrial fibrillation. At the end of the procedure, the patient is paced ventricularly, still in atrial fibrillation. Ejection fraction remains unchanged and the patient is hemodynamically stable. A right femoral artery was placed for the purpose of monitoring. IMPLANTS: 1. A 50-mm left atrial clip. 2. Three DEIRDRE plates with 18 #16 gauge screws. DESCRIPTION OF PROCEDURE IN DETAIL: With the patient in the supine position after adequate induction of general endotracheal anesthesia, preoperative intravenous antibiotic, percutaneous arterial and venous lines, surgeon-directed timeout, utilizing 2 patient identifiers followed by a mid sternotomy and subcutaneous harvesting of the left internal mammary artery and from anterior left chest wall and greater saphenous vein from the left lower extremity using endoscopic technique. The patient was systemically heparinized and the mammary artery was from the chest in preparation for bypass. Chest retractor was placed utilizing mechanical stabilizer and 4-prong tourniquet for vascular control. Two distal anastomoses were performed in end-to-side fashion with ENGLE and LAD and the right saphenous vein graft at the last oblique margin. A heartstring device was utilized to perform the proximal anastomosis with a running suture of 5-0 Prolene. Grafts deaired and the myocardium revascularized. Protamine, hemostasis and closure. Two chest drains, a 32 mm in mediastinum and a 19 left-sided Pedro, an epicardial pacemaker wire, which was utilized for bradycardia. Attempts of cardioversion were performed x 2, but the patient did not convert. He has been in chronically atrial fibrillation. HEMOSTASIS AND CLOSURE: Stainless steel wires. Open reduction and internal fixation utilizing 3 DEIRDRE plates and eighteen #16 gauge screws, #1 Vicryl and 3-0 Monocryl for closure. Protamine was given to reverse effect of heparin and the ACT was normal at the end of the procedure. A closure with #1 Vicryl and 3-0 Monocryl. TID: [id number] RECEIPT: [id number]
[2024-12-25] MEDS: NOREPINEPHRIN 8MG/250ML NS 250 ML IV PRN (20:46)
[2024-12-26] VITALS (100 sets, daily range): BP systolic 96–186; BP diastolic 41–83; PULSE 60–85; RESP 7–86; TEMP 98–99.1; O2SAT 92–100
[2024-12-26 04:10] LABS: ABG BASE EXCESS 5.7 mmol/L (-2.0-3.0); ABG HCO3 31.0 mmol/L (21.0-28.0); ABG OXYGEN SATURATION 97.9 % (94.0-98.0); ABG PCO2 49 mmHg (35-48); ABG PH 7.417 (7.350-7.450); CARBON MONOXIDE 1.5 % (0.5-1.5); CPAP, BG 10 cm H2O; PO2, ARTERIAL BG 104.7 mmHg (83.0-108.0); TEMPERATURE, CELSIUS BG 37.0 CELSIUS (35.5-37.0); VENT MODE, BG CPAP (ROOM AIR)
[2024-12-26 04:15] LABS: NUCLEATED RED BLOOD CELLS 0.0 % (0.0-0.19); PLATELET COUNT (AUTO) 296.0 K/uL (130-400); RED BLOOD CELL COUNT(AUTO) 3.82 MIL/uL (4.50-6.20); RED CELL DISTRIBUTION WIDTH 19.3 % (11.0-15.5); WHITE BLOOD COUNT (AUTO) 17.0 K/uL (4.8-10.8)
[2024-12-26 04:27] LABS: INR 1.14 (0.85-1.15)
[2024-12-26 04:31] LABS: CREATININE 1.3 mg/dL (0.5-1.3); GLOMERULAR FILTR. RATE CALC 59.0 mL/min (>90); GLUCOSE,RANDOM 121.0 mg/dL (70-105); PHOSPHORUS 3.9 mg/dL (2.5-4.9); SODIUM SERUM 145.0 mmol/L (136-145); UREA NITROGEN, BLOOD 18.0 mg/dL (7-18)
[2024-12-26] MEDS: ASPIRIN 81 MG EC TAB PO SCH (08:08)
--- NOTE | 2024-12-26 08:45 | PN ---
[facility] PROGRESS NOTE Date Patient Seen: Dec 26, 2024 Time of Visit: 08:45 Supervising Physician: Louis Sloan MD Primary Care Physician: Nahun Delarosa Outpatient Specialists: Dr Mercado (cardiology) Inpatient Consults: OG, DR Bartolo Mercado Attending physician: Dr. Bhakta PROBLEM LIST: CAD status post CABG x2 w/ GIANNA clip placement 12/25/[address] Bhakta Pacemaker dependent via epicardial leads Diastolic heart failure with the EF of 30-35% PER intraoperative MAIRA Intraoperative Afib RVR cardioverted x 2 Postop pulmonary edema Postoperative acute on chronic iron-deficiency anemia, POA Hyperglycemia with a A1c of 6.0 Electrolyte derangement (hypokalemia, hyperphosphatemia, hypomagnesemia) Cardiomyopathy Cardiomegaly Obesity BMI of 35.4 Comorbidities: Restrictive lung disease Essential hypertension Hyperlipidemia Atrial fibrillation on anticoagulation with the Eliquis last dose on 12/19/24 Iron-deficiency Chronic anemia Arthritis Hernia 60 pack yr smoker INTERVAL HISTORY: Date of admission: 12/25/24 Post CABG day: 1 Code status: Full code Extubated 12/25/24 Lines: Subclavian cordis, chest tube, PIV, left radial a line Nutrition: clears precautions :standard Overnight events: No major overnight events Remained Hemodynamically stable on epi at 0.04 mcg/kg per minute. Tmax of 99.1 and T low of 98.2 Patient is now extubated on 3 L via nasal cannula saturating 94% in no apparent distress. Urine output 1.4 L with a balance of positive 2.4 L chest tube drained 700 mL in the last 24 hours. He has been started on Lasix pushes per Cardiology team. Chest XR - cardiomegaly with status post sternotomy changes with the cardiac revascularization procedure. Diffuse interstitial pulmonary edema. Support lines appear to be in stable position. Chest x-ray shows white count trending down 17 K. H&H is eight with a platelet count of 296 K. Given his underlying chronic iron-deficiency anemia , added iorn IV x 3 days. Chemistry unremarkable. Subjective complaints: He is awake alert and oriented x3. Mild pain to midline incision to sternum with movement and coughing. reports feeling some fatigue and dyspnea with exertion. Family update four/meetings: Daughter and at the bedside. updated with plan of care. REVIEW OF SYSTEMS: Unable to perform due to patient's intubated. Post CABG. PHYSICAL EXAM: GENERAL:AAOx3. recovering post CABG HEENT: Sclera non icteric, moist mucosa NECK: Supple, no JVD, trachea midline LUNGS: Coarse crackles breath sounds bilaterally. No wheezes. Chest tube in place draining sanguinous HEART: Paced at 80 beats per minute via epicardial leads. ABD: Abdomen soft, nontender. Bowel sounds present EXT: No clubbing cyanosis or edema, left leg Jackson wrap. Bilateral pulses with Doppler. NEURO: CDHq0st focal defecits. 40 downgrade Vital Signs (last 8hr) Date Time Temp Pulse Resp B/P (MAP) Pulse Ox O2 Delivery O2 Flow Rate FiO2 12/26/24 08:00 97 Nasal Cannula* 3 32 12/26/24 08:00 98.2 12/26/24 07:15 80 21 130/57 (81) 94 126/80 (95) 12/26/24 07:00 80 21 137/57 (83) 96 12/26/24 06:45 80 21 133/56 (81) 96 12/26/24 06:40 80 18 N/Cannula Low lpm 3.0 32 12/26/24 06:15 80 21 136/59 (84) 97 112/63 (79) 12/26/24 06:00 80 22 147/61 (89) 97 114/68 (83) 12/26/24 05:45 80 21 98/52 (67) 97 96/68 (77) 12/26/24 05:30 80 22 140/59 (86) 96 119/62 (81) 12/26/24 05:15 80 20 155/63 (93) 96 120/65 (83) 12/26/24 05:00 80 16 145/61 (89) 97 126/64 (84) 12/26/24 04:45 80 20 154/59 (90) 97 122/69 (86) 12/26/24 04:30 80 16 149/61 (90) 98 125/68 (87) 12/26/24 04:15 80 22 155/62 (93) 97 124/69 (87) 12/26/24 04:00 98.1 80 16 147/61 (89) 95 123/65 (84) 12/26/24 03:45 80 18 154/64 (94) 100 40 130/73 (92) 12/26/24 03:30 80 16 147/60 (89) 100 40 131/64 (86) 12/26/24 03:15 80 13 147/64 (91) 100 40 130/76 (94) 12/26/24 03:00 80 14 136/58 (84) 100 40 124/71 (88) 12/26/24 03:00 100 CPAP+ 40 12/26/24 02:45 80 15 186/72 (110) 100 40 123/68 (86) 12/26/24 02:30 80 15 136/58 (84) 100 40 123/72 (89) 12/26/24 02:15 80 15 139/58 (85) 100 40 121/68 (85) 12/26/24 02:00 80 14 133/55 (81) 100 40 120/66 (84) 12/26/24 01:45 80 14 134/54 (80) 100 40 118/68 (85) 12/26/24 01:30 80 9 132/58 (82) 100 40 125/71 (89) 12/26/24 01:15 80 20 125/54 (77) 100 40 116/67 (83) 12/26/24 01:07 126/56 12/26/24 01:00 80 20 123/58 (79) 99 40 114/70 (85) LABS: Hematology Labs: Test 12/26/24 03:57 12/24/24 11:30 Range/Units White Blood Count 17.0 #H 4.8-10.8 K/uL Red Blood Count 3.82 L 4.50-6.20 MIL/uL Hemoglobin 8.0 L 14.0-18.0 g/dL Hematocrit 27.5 L 42-54 % Mean Corpuscular Volume 72.0 L 79-99 fL Mean Corpuscular Hemoglobin 20.9 L 27.0-33.0 pg Mean Corpuscular Hemoglobin Concent 29.1 L 32.0-36.0 g/dL Red Cell Distribution Width 19.3 H 11.0-15.5 % Platelet Count 296 130-400 K/uL Mean Platelet Volume 9.3 7.5-10.5 fL Nucleated Red Blood Cells 0.0 0.0-0.19 % Immature Granulocyte % (Auto) 0.4 0-1 % Neutrophils (%) (Auto) 63.5 40.0-77.0 % Lymphocytes (%) (Auto) 18.0 L 21.0-51.0 % Monocytes (%) (Auto) 9.7 3.0-13.0 % Eosinophils (%) (Auto) 7.6 0.0-8.0 % Basophils (%) (Auto) 0.8 0.0-5.0 % Neutrophils # (Auto) 5.4 1.8-7.7 K/uL Lymphocytes # (Auto) 1.5 1.0-4.8 K/uL Monocytes # (Auto) 0.8 0.1-1.0 K/uL Eosinophils # (Auto) 0.64 0.00-0.70 K/uL Basophils # (Auto) 0.07 0.00-0.20 K/uL Absolute Immature Granulocyte (auto 0.03 0-1 K/uL Red Blood Cell Morphology See comments Chemistry Labs: Test 12/26/24 08:03 12/26/24 03:57 12/24/24 11:30 Range/Units Whole Blood Glucose 117 H 70-110 MG/DL Sodium Level 145 136-145 mmol/L Potassium Level 5.0 3.5-5.1 mmol/L Chloride Level 107 101-111 mmol/L Carbon Dioxide Level 32 21-32 mmol/L Blood Urea Nitrogen 18 7-18 mg/dL Creatinine 1.3 0.5-1.3 mg/dL Glomerular Filtration Rate Calc 59 >90 mL/min Random Glucose 121 #H 70-105 mg/dL Total Calcium 9.0 8.5-10.1 mg/dL Ionized Calcium 1.15 1.15-1.33 MMOL/L Phosphorus Level 3.9 2.5-4.9 mg/dL Magnesium Level 2.60 H 1.80-2.40 mg/dL Hemoglobin A1c 6.0 4.0-6.0 % Estimated Average Glucose (eAG) 126 70-126 mg/dL Total Bilirubin 0.4 0.2-1.0 mg/dL Aspartate Amino Transf (AST/SGOT) 19 10-37 U/L Alanine Aminotransferase (ALT/SGPT) 18 12-78 U/L Alkaline Phosphatase 94 50-136 U/L B-Type Natriuretic Peptide 457 H 0-100 pg/mL Total Protein 7.7 6.0-8.3 g/dL Albumin 3.4 L 3.5-5.0 g/dL Triglycerides Level 97 30-200 mg/dL Cholesterol Level 120 <200 mg/dL LDL Cholesterol 61 0-99 mg/dL HDL Cholesterol 49 29-71 mg/dL Coagulation Labs: Test 12/26/24 03:57 Range/Units Prothrombin Time 11.9 H 9.6-11.6 SEC Prothromb Time International Ratio 1.14 0.85-1.15 Activated Partial Thromboplast Time 28.8 26.3-35.5 SEC DIAGNOSTICS / RADIOLOGY RESULTS: [facility] [address] [place] [address] IMAGING REPORT Signed PATIENT: KYLE CHASE MR#: [id number] : 1955 SEX: M AGE: 69 LOCATION: 2CV ORDER 2300 STATUS: ADM IN REPORT#: [id number] SERVICE 0400 REASON: s/p CABG ORDERING PHYSICIAN: KANE BHAKTA MD PROCEDURE: CXR1VW - CHEST 1VW CHEST 1VW REASON: s/p CABG COMPARISON: Chest radiograph from 12/25/2024 is available. FINDINGS: The study demonstrate cardiomegaly with median sternotomy with cardiac revascularization procedure. There is diffuse interstitial pulmonary edema which appears to be mild resolving. The support lines including left chest tube and left subclavian line to be in satisfactory position. IMPRESSION: 1. Cardiomegaly with status post median sternotomy with cardiac revascularization procedure 2. Diffuse interstitial pulmonary edema 3. Support lines appears to be in satisfactory position. DICTATED BY: ERIC DENTON MD DATE: 12/26/24913 ELECTRONICALLY SIGNED BY: ERIC DENTON MD DATE: 12/26/[address] surgeon recommendations Follow cardiology recommendations Multimodal pain management Monitoring H&H Monitor chest tube output Chest x-ray in the morning Transfuse if absolutely necessary to keep hemoglobin above 8 Maintain O2 sats greater than 92% Incentive spirometry once extubated Glycemic control with goal of 80-180 Referral for cardiac rehabilitation Speech to eval once patient is extubated monitor electrolytes: K Goal of 4 Magnesium goal of 2 Replace accordingly NEURO: Minimize central acting medications as possible. Fall Precautions. Well lighted room through the day and minimize interruptions through the night to prevent acute delirium. PULMONARY: Supplemental 02 as needed Titrate Fio2 to keep Spo2 > or = 90% DuoNebs and CPT as needed IS hourly while awake for pulmonary hygiene Out of bed to chair as tolerated CARDIOVASCULAR: Follow hemodynamics. Titrate vasopressor to keep MAP >65 or systolic blood pressure >95mmHg DRIPS: epi GI & NUTRITION: Continue nutritional support Aspirations precautions Prokinetic agents and laxatives as needed KIDNEYS & ELECTROLYTES: Strict monitoring of intake and output Daily weights Avoid nephrotoxic agents Monitor electrolytes and replace as needed Goal urine output of 30mL/hr or 0.5mL/kg/hr ENDOCRINE: Maintain blood glucose between 100-180 at all times. Insulin sliding scale for blood glucose management INFECTIOUS DISEASE: Trend temperature. Veloz-culture if febrile. Micro: MRSA Negative Antibiotics: Ancef x 3 HEMATOLOGY & COAGULATION: Monitor H&H. Keep Hgb > 7 Transfuse 1 unit of PRBC for Hgb < 7 Transfuse 1 pack of platelets of platelets < 20, 000 Watch for any signs and symptoms of bleeding SKIN: Pressure ulcer prevention per facility protocol Rehab: PT/OT Prophylaxis: GI: pepcid DVT: jackson wraps per CV surgery Code Status: Full Resuscitation Disposition: ICU Other: Total patient care time exceeds 35 minutes excluding all procedures. Case was discussed and seen with my supervising physician. The above plan was formulated and agreed upon. ATTESTATION BY PHYSICIAN I reviewed the documentation, medical decision making, and treatment plan as noted by the mid-level provider above. I agree with the findings and plan of care. Louis Sloan MD, [facility] Dec 26, 2024 08:45
[2024-12-26] MEDS ORDERED: COMPOUND IV MISC 1 EACH IVSOLN MISC PRN (09:00)
--- NOTE | 2024-12-26 09:18 | HMCIMG ---
CHEST 1VW REASON: s/p CABG COMPARISON: Chest radiograph from 12/25/2024 is available. FINDINGS: The study demonstrate cardiomegaly with median sternotomy with cardiac revascularization procedure. There is diffuse interstitial pulmonary edema which appears to be mild resolving. The support lines including left chest tube and left subclavian line to be in satisfactory position. IMPRESSION: 1. Cardiomegaly with status post median sternotomy with cardiac revascularization procedure 2. Diffuse interstitial pulmonary edema 3. Support lines appears to be in satisfactory position.
--- NOTE | 2024-12-26 10:15 | PN ---
This is a 69-year-old male with multivessel coronary artery disease, mild ischemic cardiomyopathy hypertension, hyperlipidemia, persistent atrial fibrillation and history of CVA. He was admitted for elective CABG x2 left atrial appendage ligation 12/25/2024. He has been extubated. Epinephrine is being weaned. He is currently in atrial fibrillation with heart rates in the 80s. Most recent blood pressure is 111/65. Chest x-ray shows moderate bilateral pulmonary vascular congestion with a widened mediastinum. White blood count 17.0, hemoglobin 8.0, hematocrit 27.5, platelets 296, creatinine 1.3, potassium 5.0, magnesium 2.60. He reports occasional shortness or breath. On exam, he is in no acute distress, regular rate and rhythm, bilateral crackles. Assessment: 1. Multivessel coronary artery disease. 2. Status post CABG x2 with left atrial appendage ligation 12/25/2024. 3. Mild ischemic cardiomyopathy with an ejection fraction of 45-50% in September 2024. 4. Hypertension. 5. Hyperlipidemia. 6. Persistent atrial fibrillation. 7. History of CVA. Plan: 1. He was admitted for elective CABG x2 with left atrial appendage ligation 12/25/2024. He has been extubated. He remains on epinephrine which is being weaned. 2. Continue aspirin 81 mg once daily and atorvastatin 40 mg once daily. 3. Titrate IV furosemide to 20 mg every 8 hours. 4. Repeat chest x-ray in the a.m.. 5. We will follow the patient. Vitals/Labs Vital Signs Date Time Temp Pulse Resp B/P (MAP) Pulse Ox O2 Delivery O2 Flow Rate FiO2 12/26/24 09:30 80 25 145/64 (91) 96 12/26/24 08:00 98.2 12/26/24 08:00 Nasal Cannula* 3 32 Laboratory Tests 12/25/24 11:40 12/26/24 03:57 DONALDO MCKENZIE Dec 26, 2024 10:15
--- NOTE | 2024-12-26 12:00 | NUR ---
MET W PT AND SPOUSE AT BEDSIDE FOR DC PLANNING. POD # 1 FROM CABG- ALERT, DENIES PAIN, AND APPEARS CHEERFUL. STATES PRIOR TO SURGERY WAS INDEPENDENT, USED ONLY A CANE AT TIME, DRIVES, AND DOES HAVE A SHOWER CHAIR. HAS A PROVIDER ABOUT 10 HRS /WK. LIVES WITH SPOUSE HEATHER WHOSE HEALTH IS ALSO GOOD,/ GOAL FOR THEM IS FOR HIM TO GO HOME AND IF NEEDED HAVE HOME HEALTH. SPOUSE TO PROVIDE TRANSPORT. DENIES FINACNCIAL STRAIN AND FOLLOWS REGULARLY WITH HIS PCP Addendum: 12/28/24 at 1827 by RAIMUNDO PALMER RN CM Amended: Links added.
[2024-12-26] MEDS: THIAMINE HCL 100 MG/ML 2ML VIAL IVP SCH (13:50)
--- NOTE | 2024-12-26 13:55 | NUR ---
REPORT REPORT GIVEN TO Beverly NORRIS RN
[2024-12-26] MEDS: CALCIUM GLUC 1GM 1 GM in 0.9%NACL 50ML 50 ML IV PRN (15:57)
[2024-12-27] VITALS (120 sets, daily range): BP systolic 83–172; BP diastolic 37–103; PULSE 56–84; RESP 11–31; TEMP 98–98.4; O2SAT 93–99
[2024-12-27 04:43] LABS: NUCLEATED RED BLOOD CELLS 0.0 % (0.0-0.19); PLATELET COUNT (AUTO) 259.0 K/uL (130-400); RED BLOOD CELL COUNT(AUTO) 3.63 MIL/uL (4.50-6.20); RED CELL DISTRIBUTION WIDTH 19.1 % (11.0-15.5); WHITE BLOOD COUNT (AUTO) 18.6 K/uL (4.8-10.8)
[2024-12-27 05:06] LABS: CREATININE 1.5 mg/dL (0.5-1.3); GLOMERULAR FILTR. RATE CALC 50.0 mL/min (>90); GLUCOSE,RANDOM 102.0 mg/dL (70-105); PHOSPHORUS 6.7 mg/dL (2.5-4.9); SODIUM SERUM 137.0 mmol/L (136-145); UREA NITROGEN, BLOOD 31.0 mg/dL (7-18)
[2024-12-27] MEDS ORDERED: COMPOUND IV REFRIGERATED 1 EACH IVSOLN MISC PRN (07:30)
--- NOTE | 2024-12-27 07:43 | HMCIMG ---
EXAM: CR Chest, single view. CLINICAL HISTORY: Status post CABG. COMPARISON: Prior chest radiograph dated 26 December 2024 FINDINGS: Left-sided central catheter with its tip in the superior vena cava. Chest tube is unchanged in position. Stable moderate cardiomegaly with stable moderate pulmonary congestion. There are stable patchy opacities in the bilateral mid and lower zones are probably interstitial edema. There is stable small bilateral pleural effusions. No acute osseous abnormality. IMPRESSION: Stable exam. /Pauline
[2024-12-27] MEDS: ARTIFICAL TEARS SOL 15 ML OU PRN (08:13)
[2024-12-27] MEDS ORDERED: 0.9%NACL 50ML IV SCH (10:30)
[2024-12-27] MEDS: ZOSYN 3.375GM +NS 50ML IVPB SCH (10:31)
--- NOTE | 2024-12-27 10:56 | PN ---
This is a 69-year-old male with multivessel coronary artery disease, mild ischemic cardiomyopathy hypertension, hyperlipidemia, persistent atrial fibrillation, right bundle branch block and history of CVA. He was admitted for elective CABG x2 left atrial appendage ligation 12/25/2024. Transesophageal ECHO during surgery showed an ejection fraction of 30-35% with no clot in the left atrial appendage. Epicardial wire was placed due to bradycardia. He remains on epinephrine. He is currently in atrial fibrillation with ventricular rates in the 70s. Most recent blood pressure is 133/43. Chest x-ray shows moderate bilateral pulmonary vascular congestion. White blood count 18.6 up from 17, hemoglobin 7.6 down from 8.0, hematocrit 26.3, platelets 259, creatinine 1.5, potassium 5.1, magnesium 2.50, procalcitonin 3.48. He offers up no new cardiac complaints today. He denies chest pain, shortness or breath or weakness. On exam, he is in no acute distress, regular rate and rhythm, bilateral crackles. Assessment: 1. Multivessel coronary artery disease. 2. Status post CABG x2 with left atrial appendage ligation 12/25/2024. 3. Ischemic cardiomyopathy. 4. Blood loss anemia. 5. Persistent atrial fibrillation. 6. Hypertension. 7. Hyperlipidemia. 8. Persistent atrial fibrillation. 9. History of CVA. Plan: 1. He was admitted for elective CABG x2 with left atrial appendage ligation 12/25/2024. Epicardial lead was placed due to bradycardia which has been turned off. He is currently in atrial fibrillation with ventricular rates in the 70s. He has an underlying right bundle-branch block. 2. Continue aspirin 81 mg once daily and atorvastatin 40 mg once daily. Metoprolol tartrate was held this morning. 3. Continue furosemide to 20 mg every 8 hours. 4. His preop echocardiogram in September 2024 showed an ejection fraction of 45-50%. Intraoperative MAIRA showed an ejection fraction of 30 35%. Recommend limited echocardiogram to assess LVEF. 5. He is in persistent atrial fibrillation with adequate rate control. 6. He is pending transfusion this morning due to decline in the hemoglobin of 7.6. 7. We will follow the patient. Vitals/Labs Vital Signs Date Time Temp Pulse Resp B/P (MAP) Pulse Ox O2 Delivery O2 Flow Rate FiO2 12/27/24 09:45 68 15 133/43 (73) 97 32 12/27/24 08:00 98.4 12/27/24 08:00 Nasal Cannula* 3 Laboratory Tests 12/26/24 15:32 12/27/24 03:58 DONALDO MCKENZIE Dec 27, 2024 10:56
--- NOTE | 2024-12-27 21:13 | PN ---
[facility] PROGRESS NOTE Date Patient Seen: Dec 27, 2024 Time of Visit: 21:02 Supervising Physician: Louis Sloan MD Primary Care Physician: Nahun Delarosa Outpatient Specialists: Dr Mercado (cardiology) Inpatient Consults: DR Bartolo FOLEY Attending physician: Dr. Bhakta PROBLEM LIST: Postoperative hypoxemic respiratory failure POA Suspected Aspiration VS CAP CAD status post CABG x2 w/ GIANNA clip placement 12/25/[address] Bhakta Postoperative Bradycardia Pacemaker dependent via epicardial leads, Resolved Diastolic heart failure with the EF of 30-35% PER intraoperative MAIRA Intraoperative Afib RVR cardioverted x 2 Postop pulmonary edema Postoperative acute on chronic iron-deficiency anemia, POA S/P 1 unit of PRBC Hyperglycemia with a A1c of 6.0 Electrolyte derangement (hypokalemia, hyperphosphatemia, hypomagnesemia) Cardiomyopathy Cardiomegaly Obesity BMI of 35.4 Comorbidities: Restrictive lung disease Essential hypertension Hyperlipidemia Atrial fibrillation on anticoagulation with the Eliquis last dose on 12/19/24 Iron-deficiency Chronic anemia Arthritis Hernia 60 pack yr smoker INTERVAL HISTORY: Date of admission: 12/25/24 Post CABG day: 2 Code status: Full code Extubated 12/25/24 Lines: Subclavian cordis, chest tube, PIV, left radial a line Nutrition: clears precautions :standard As per RN patient has a dobutamine dose pressors and had to be restarted on epi at 0.7 mcg/kg per minute. And afebrile T-max of 98.4 and a T low of 98.1. We are going to heart rate max of 84 and level 56. Currently saturating 99% on 3 L via nasal cannula. Urine output 2.3 L balance of-773 mL chest tube output 840 mL in the last 24 hours. He is x-ray shows stable at time. Left-sided central line with tip in the superior vena cava. Chest tube unchanged in position. Moderate cardiomegaly with stable moderate pulmonary pack screen congestion. There is stable patchy opacities to the bilateral mid and lower zones apparently interstitial edema there is stable small bilateral pleural effusions. On laboratory white count trended up today 18.6 x 17 H&H is 7.6/26.35 from yesterday platelet count 259 K Chemistry BUN 31 creatinine 1.5 GFR of 15 glucose 456 mg/dL procalcitonin elevated we will be 0.48. Started antibiotics IV Zosyn. Subjective complaints: Patient is awake alert and oriented x 3 . [id number] pain midsternal incision with movement and cough. Ninety working on his IS. He has been Nepro recliner chair reports feeling fatigued. Family update four/meetings: Daughter and at the bedside. updated with plan of care. Answered all their questions. REVIEW OF SYSTEMS: Const: no fever, fatigue, or weight changes + fatigue Eyes: no recent vision problems ENT: No congestion, ear pain, or sore throat C/V: no chest pain, palpitations or edema _+midsternal incision tenderness. Resp: No cough, congestion, wheezing , or Shortness of breath GI: No abdominal pain, nausea, vomiting, constipation, or diarrhea : No incontinence of or dyuria M/S: No joint or pain swelling Skin: No rash Neuro: no headache, focal numbness, or weakness, dizziness or seizures Psych: no depression or anxiety Heme: no abnormal bruising or bleeding Lymph: no swollen glands PHYSICAL EXAM: GENERAL:AAOx3. recovering post CABG HEENT: Sclera non icteric, moist mucosa NECK: Supple, no JVD, trachea midline LUNGS: Coarse Ronchi breath sounds bilaterally. No wheezes. Chest tube in place draining sanguinous HEART: HR regular rate and rythm , S1 and S2 ABD: Abdomen soft, nontender. Bowel sounds present EXT: No clubbing cyanosis or edema, left leg Wilfrid wrap. Bilateral pulses with Doppler. NEURO: [id number] focal defecits. Vital Signs (last 8hr) Date Time Temp Pulse Resp B/P (MAP) Pulse Ox O2 Delivery O2 Flow Rate FiO2 12/27/24 20:00 98.1 CPAP 14.0 40 12/27/24 19:15 56 21 133/46 (75) 99 111/52 (71) 12/27/24 19:00 61 15 132/47 (75) 99 40 12/27/24 18:33 70 19 40 12/27/24 18:15 67 16 160/54 (89) 99 32 12/27/24 18:11 60 19 151/50 (83) 91 32 108/71 (83) 12/27/24 18:00 71 18 157/56 (89) 83 32 12/27/24 17:45 72 16 143/50 (81) 85 32 12/27/24 17:30 69 11 156/53 (87) 91 32 12/27/24 17:15 62 16 137/47 (77) 85 32 12/27/24 17:00 64 16 148/48 (81) 91 32 12/27/24 16:45 67 17 157/59 (91) 94 32 12/27/24 16:41 71 19 154/57 (89) 88 32 121/67 (85) 12/27/24 16:30 71 31 136/46 (76) 94 32 12/27/24 16:21 98.2 12/27/24 16:15 68 15 164/58 (93) 96 32 12/27/24 16:11 68 16 159/56 (90) 95 32 115/72 (86) 12/27/24 16:00 63 17 150/50 (83) 96 32 12/27/24 15:41 66 26 167/57 (93) 95 32 125/57 (79) 12/27/24 15:30 68 28 168/58 (94) 94 32 12/27/24 15:30 95 Nasal Cannula* 3 32 12/27/24 15:15 64 24 145/49 (81) 93 32 12/27/24 15:11 64 16 154/54 (87) 96 32 125/63 (83) 12/27/24 15:06 63 27 149/51 (83) 94 32 116/60 (78) 12/27/24 15:00 65 17 147/54 (85) 94 32 12/27/24 14:45 70 17 144/51 (82) 93 32 12/27/24 14:41 72 29 107/37 (60) 94 32 83/62 (69) 12/27/24 14:30 70 19 148/52 (84) 93 32 12/27/24 14:15 65 16 93 32 12/27/24 14:11 69 16 94 32 124/74 (91) 12/27/24 14:00 68 27 93 32 12/27/24 13:45 67 20 141/48 (79) 94 32 12/27/24 13:41 72 23 144/50 (81) 93 32 100/76 (84) 12/27/24 13:30 63 17 139/46 (77) 95 32 12/27/24 13:11 68 17 145/51 (82) 97 32 125/68 (87) LABS: Hematology Labs: Test 12/27/24 03:58 Range/Units White Blood Count 18.6 H 4.8-10.8 K/uL Red Blood Count 3.63 L 4.50-6.20 MIL/uL Hemoglobin 7.6 L 14.0-18.0 g/dL Hematocrit 26.3 L 42-54 % Mean Corpuscular Volume 72.5 L 79-99 fL Mean Corpuscular Hemoglobin 20.9 L 27.0-33.0 pg Mean Corpuscular Hemoglobin Concent 28.9 L 32.0-36.0 g/dL Red Cell Distribution Width 19.1 H 11.0-15.5 % Platelet Count 259 130-400 K/uL Mean Platelet Volume 9.9 7.5-10.5 fL Nucleated Red Blood Cells 0.0 0.0-0.19 % Chemistry Labs: Test 12/27/24 16:27 12/27/24 03:58 Range/Units Whole Blood Glucose 125 H 70-110 MG/DL Sodium Level 137 136-145 mmol/L Potassium Level 5.1 3.5-5.1 mmol/L Chloride Level 101 101-111 mmol/L Carbon Dioxide Level 31 21-32 mmol/L Blood Urea Nitrogen 31 H 7-18 mg/dL Creatinine 1.5 H 0.5-1.3 mg/dL Glomerular Filtration Rate Calc 50 >90 mL/min Random Glucose 102 70-105 mg/dL Total Calcium 9.0 8.5-10.1 mg/dL Ionized Calcium 1.20 1.15-1.33 MMOL/L Phosphorus Level 6.7 H 2.5-4.9 mg/dL Magnesium Level 2.50 H 1.80-2.40 mg/dL Procalcitonin 3.48 H 0.05-0.5 ng/mL Coagulation Labs: Test 12/26/24 03:57 Range/Units Prothrombin Time 11.9 H 9.6-11.6 SEC Prothromb Time International Ratio 1.14 0.85-1.15 Activated Partial Thromboplast Time 28.8 26.3-35.5 SEC DIAGNOSTICS / RADIOLOGY RESULTS: [[facility] [address] [place] [id number] IMAGING REPORT Signed PATIENT: KYLE CHASE MR#: [id number] : 1955 SEX: M AGE: 69 LOCATION: [facility] ORDER 230 STATUS: ADM IN REPORT#: [id number] SERVICE 0400 REASON: s/p CABG ORDERING PHYSICIAN: KANE BHAKTA MD PROCEDURE: CXR1VW - CHEST 1VW EXAM: CR Chest, single view. CLINICAL HISTORY: Status post CABG. COMPARISON: Prior chest radiograph dated 26 December 2024 FINDINGS: Left-sided central catheter with its tip in the superior vena cava. Chest tube is unchanged in position. Stable moderate cardiomegaly with stable moderate pulmonary congestion. There are stable patchy opacities in the bilateral mid and lower zones are probably interstitial edema. There is stable small bilateral pleural effusions. No acute osseous abnormality. IMPRESSION: Stable exam. /[place] DICTATED BY: KRYSTAL BURKS MD DATE: 12/27/24842 ELECTRONICALLY SIGNED BY: KRYSTAL BURKS MD DATE: 12/27/24842 ] PLAN Follow CT surgeon recommendations Follow cardiology recommendations Multimodal pain management Monitoring H&H Monitor chest tube output Chest x-ray in the morning Transfuse if absolutely necessary to keep hemoglobin above 8 Maintain O2 sats greater than 92% Incentive spirometry once extubated Glycemic control with goal of 80-180 Referral for cardiac rehabilitation Speech to eval once patient is extubated monitor electrolytes: K Goal of 4 Magnesium goal of 2 Replace accordingly NEURO: Minimize central acting medications as possible. Fall Precautions. Well lighted room through the day and minimize interruptions through the night to prevent acute delirium. PULMONARY: Supplemental 02 as needed Titrate Fio2 to keep Spo2 > or = 90% DuoNebs and CPT as needed IS hourly while awake for pulmonary hygiene Out of bed to chair as tolerated CARDIOVASCULAR: Follow hemodynamics. Titrate vasopressor to keep MAP >65 or systolic blood pressure >95mmHg DRIPS: epi GI & NUTRITION: Continue nutritional support Aspirations precautions Prokinetic agents and laxatives as needed KIDNEYS & ELECTROLYTES: Strict monitoring of intake and output Daily weights Avoid nephrotoxic agents Monitor electrolytes and replace as needed Goal urine output of 30mL/hr or 0.5mL/kg/hr ENDOCRINE: Maintain blood glucose between 100-180 at all times. Insulin sliding scale for blood glucose management INFECTIOUS DISEASE: Trend temperature. Veloz-culture if febrile. Micro: MRSA Negative Antibiotics: Ancef x 3 completed Zosyn 12/27/24 L HEMATOLOGY & COAGULATION: Monitor H&H. Keep Hgb > 7 Transfuse 1 unit of PRBC for Hgb < 7 Transfuse 1 pack of platelets of platelets < 20, 000 Watch for any signs and symptoms of bleeding SKIN: Pressure ulcer prevention per facility protocol Rehab: PT/OT Prophylaxis: GI: pepcid DVT: wilfrid wraps per CV surgery Code Status: Full Resuscitation Disposition: ICU Other: Total patient care time exceeds 35 minutes excluding all procedures. Case was discussed and seen with my supervising physician. The above plan was formulated and agreed upon. ATTESTATION BY PHYSICIAN I reviewed the documentation, medical decision making, and treatment plan as noted by the mid-level provider above. I agree with the findings and plan of care. Louis Sloan MD, [facility] Dec 27, 2024 21:13
[2024-12-28] VITALS (88 sets, daily range): BP systolic 95–168; BP diastolic 35–80; PULSE 52–80; RESP 13–29; TEMP 98.2–98.8; O2SAT 2–99
[2024-12-28 05:02] LABS: NUCLEATED RED BLOOD CELLS 0.0 % (0.0-0.19); PLATELET COUNT (AUTO) 233.0 K/uL (130-400); RED BLOOD CELL COUNT(AUTO) 3.71 MIL/uL (4.50-6.20); RED CELL DISTRIBUTION WIDTH 19.1 % (11.0-15.5); WHITE BLOOD COUNT (AUTO) 16.2 K/uL (4.8-10.8)
[2024-12-28 05:21] LABS: CREATININE 1.2 mg/dL (0.5-1.3); GLOMERULAR FILTR. RATE CALC 65.0 mL/min (>90); GLUCOSE,RANDOM 126.0 mg/dL (70-105); PHOSPHORUS 4.5 mg/dL (2.5-4.9); SODIUM SERUM 136.0 mmol/L (136-145); UREA NITROGEN, BLOOD 32.0 mg/dL (7-18)
[2024-12-28] MEDS: ZOSYN 3.375GM +NS 50ML IVPB SCH (05:54)
--- NOTE | 2024-12-28 07:31 | HMCIMG ---
EXAM: CR Chest, single view. CLINICAL HISTORY: Status post CABG. COMPARISON: Prior chest radiograph dated 27 December 2024 FINDINGS: Essentially stable appearance since prior exam. Left-sided central catheter with its tip in the superior vena cava. Chest tube is unchanged in position. Stable moderate cardiomegaly with stable moderate pulmonary congestion. There are stable patchy opacities in the bilateral mid and lower zones are probably interstitial edema. There is stable small bilateral pleural effusions. No acute osseous abnormality. IMPRESSION: No significant interval change in the appearance of the post CABG chest since 1 day earlier. /Sterling
--- NOTE | 2024-12-28 08:21 | PN ---
1. Multivessel coronary artery disease. 2. Status post CABG x2 with left atrial appendage ligation 12/25/2024. 3. Ischemic cardiomyopathy. 4. Blood loss anemia. 5. Persistent atrial fibrillation. 6. Hypertension. 7. Hyperlipidemia. 8. Persistent atrial fibrillation. 9. History of CVA. Patient offers no specific complaint today. Has minimal postsurgical/pleuritic pain with chest tube still in. No angina, no dyspnea. Limited chest excursion because of chest tube pain but no rales or rhonchi, nonlabored respiration. No JVD, normal carotid volume. Normal S1 and S2 with no S3 or murmur. No edema. Patient is oriented and alert and appropriate. Impression and plan: Post coronary bypass patient. When possible pull chest tubes, advance usual surgical protocols, observe rhythm and hemodynamics. Vitals/Labs Vital Signs Date Time Temp Pulse Resp B/P (MAP) Pulse Ox O2 Delivery O2 Flow Rate FiO2 12/28/24 06:45 77 18 129/46 (73) 97 12/28/24 06:29 N/Cannula Low lpm 3.0 32 12/28/24 04:00 98.2 Laboratory Tests 12/28/24 04:51 Medications Current Medications Epinephrine HCl 10 mg/Sodium Chloride 250 ml @ 0 mls/hr AD PRN IV Last administered on 12/26/24at 01:06; Start 12/25/24 at 06:00; Stop 01/24/25 at 05:59 Norepinephrine Bitartrate 250 ml @ 0 mls/hr AD PRN IV Last administered on 12/25/24at 20:46; Start 12/25/24 at 06:00; Stop 01/24/25 at 05:59 Aminocaproic Acid 27257 mg/Sodium Chloride 480 ml @ 0 mls/hr AD PRN IV; Start 12/25/24 at 06:00; Stop 01/24/25 at 05:59 Cefazolin Sodium 1 gm STK-MED ONCE .ROUTE; Start 12/25/24 at 06:25; Stop 12/25/24 at 06:25; Status DC Heparin Sodium/ Sodium Chloride 500 ml @ As Directed STK-MED ONCE IV; Start 12/25/24 at 06:25; Stop 12/25/24 at 06:25; Status DC Papaverine HCl 60 mg STK-MED ONCE .ROUTE; Start 12/25/24 at 06:25; Stop 12/25/24 at 06:26; Status DC Cefazolin Sodium 2 gm STK-MED ONCE .ROUTE; Start 12/25/24 at 07:05; Stop 12/25/24 at 07:11; Status DC Sodium Chloride 1,000 ml @ As Directed STK-MED ONCE IV Last administered on 12/25/24at 07:26; Start 12/25/24 at 07:05; Stop 12/25/24 at 07:11; Status DC Nitroglycerin/ Dextrose 1 ml @ As Directed STK-MED ONCE .ROUTE; Start 12/25/24 at 07:29; Stop 12/25/24 at 07:34; Status DC Cardioplegic Solution 1 ml @ As Directed STK-MED ONCE IV; Start 12/25/24 at 07:48; Stop 12/25/24 at 07:48; Status DC Protamine Sulfate 250 mg STK-MED ONCE IV; Start 12/25/24 at 07:55; Stop 12/25/24 at 07:55; Status DC Lidocaine HCl 100 mg STK-MED ONCE .ROUTE; Start 12/25/24 at 07:55; Stop 12/25/24 at 07:55; Status DC Heparin Sodium (Porcine) 10,000 unit STK-MED ONCE .ROUTE; Start 12/25/24 at 07:55; Stop 12/25/24 at 07:55; Status DC Epinephrine HCl 1 mg STK-MED ONCE .ROUTE; Start 12/25/24 at 07:55; Stop 12/25/24 at 07:55; Status DC Sodium Bicarbonate 200 ml @ As Directed STK-MED ONCE .ROUTE; Start 12/25/24 at 07:55; Stop 12/25/24 at 07:55; Status DC Norepinephrine Bitartrate 4 mg STK-MED ONCE IV; Start 12/25/24 at 07:55; Stop 12/25/24 at 07:55; Status DC Propofol 200 mg STK-MED ONCE IV; Start 12/25/24 at 07:55; Stop 12/25/24 at 07:56; Status DC Fentanyl Citrate 1,000 mcg STK-MED ONCE IJ; Start 12/25/24 at 07:56; Stop 12/25/24 at 07:56; Status DC Midazolam HCl 2 mg STK-MED ONCE .ROUTE; Start 12/25/24 at 07:56; Stop 12/25/24 at 07:56; Status DC Rocuronium Eleva 50 mg STK-MED ONCE .ROUTE; Start 12/25/24 at 07:56; Stop 12/25/24 at 07:56; Status DC Acetaminophen 1,000 mg Q6H6 IV Last administered on 12/26/24at 06:08; Start 12/25/24 at 12:00; Stop 12/26/24 at 11:59; Status DC Aspirin 81 mg ONCE ONCE NG; Start 12/25/24 at 12:00; Stop 12/25/24 at 12:01; Status DC Aspirin 81 mg DAILY PO Last administered on 12/27/24at 08:09; Start 12/26/24 at 09:00; Stop 01/25/25 at 08:59 Docusate Sodium 100 mg BID PO Last administered on 12/27/24at 20:59; Start 12/25/24 at 21:00; Stop 01/24/25 at 20:59 Lactulose 20 gm BID PRN PO; Start 12/25/24 at 08:00; Stop 01/24/25 at 07:59 Furosemide 20 mg Q12H PO; Start 12/27/24 at 09:00; Stop 12/26/24 at 10:17; Status DC Furosemide 20 mg Q12H IV Last administered on 12/26/24at 08:08; Start 12/26/24 at 09:00; Stop 12/26/24 at 10:49; Status DC Atorvastatin Calcium 40 mg HS PO Last administered on 12/27/24at 20:59; Start 12/25/24 at 21:00; Stop 01/24/25 at 20:59 Enoxaparin Sodium 30 mg DAILY SQ; Start 12/25/24 at 09:00; Stop 01/24/25 at 08:59 Metoprolol Tartrate 12.5 mg BID PO; Start 12/27/24 at 09:00; Stop 01/26/25 at 08:59 Magnesium Hydroxide 30 ml DAILY PRN PO; Start 12/25/24 at 08:00; Stop 01/24/25 at 07:59 Dexmedetomidine/ Sodium Chloride 400 mcg PROTOCOL IV; Start 12/25/24 at 08:00; Stop 12/26/24 at 07:59; Status DC Acetaminophen 650 mg Q6H PRN PO Last administered on 12/27/24at 21:01; Start 12/25/24 at 08:00; Stop 01/24/25 at 07:59 Ketamine HCl 500 mg STK-MED ONCE IJ; Start 12/25/24 at 08:13; Stop 12/25/24 at 08:13; Status DC Sodium Chloride 1,000 ml @ 10 mls/hr ONCE IV Last administered on 12/25/24at 12:13; Start 12/25/24 at 08:30; Stop 12/26/24 at 08:29; Status DC Sodium Chloride 10 ml Q8H PRN IVP; Start 12/25/24 at 08:30; Stop 01/24/25 at 08:29 Morphine Sulfate 0.5 mg Q2H PRN IV; Start 12/25/24 at 09:00; Stop 01/01/25 at 08:59 Morphine Sulfate 1 mg Q2H PRN IV; Start 12/25/24 at 09:00; Stop 01/01/25 at 08:59 Acetaminophen 650 mg Q4H PRN RC; Start 12/25/24 at 08:30; Stop 01/24/25 at 08:29 Ondansetron HCl 4 mg Q6H PRN IV Last administered on 12/27/24at 01:11; Start 12/25/24 at 08:30; Stop 01/24/25 at 08:29 Sodium Chloride 500 ml @ 0 mls/hr AD IV; Start 12/25/24 at 08:30; Stop 01/24/25 at 08:29 Nitroglycerin/ Dextrose 0 ml @ 0 mls/hr AD IV; Start 12/25/24 at 08:30; Stop 12/28/24 at 08:29 Propofol 100 ml @ 0 mls/hr AD PRN IV; Start 12/25/24 at 08:30; Stop 12/29/24 at 08:29 Norepinephrine Bitartrate 8 mg/ Dextrose 250 ml @ 0 mls/hr AD PRN IV; Start 12/25/24 at 08:30; Stop 12/25/24 at 08:40; Status DC Epinephrine HCl 10 mg/Sodium Chloride 250 ml @ 0 mls/hr AD PRN IV; Start 12/25/24 at 08:30; Stop 12/25/24 at 08:40; Status DC Aminocaproic Acid 88930 mg/Sodium Chloride 310 ml @ 25 mls/hr AD IV; Start 12/25/24 at 08:30; Stop 12/25/24 at 08:40; Status DC Calcium Gluconate 1 gm/Sodium Chloride 60 ml @ 200 mls/hr AD PRN IV Last administered on 12/26/24at 15:57; Start 12/25/24 at 08:30; Stop 01/24/25 at 08:29 Magnesium Sulfate 50 ml @ 12.5 mls/hr AD PRN IV Last administered on 12/25/24at 13:00; Start 12/25/24 at 08:30; Stop 01/24/25 at 08:29 Potassium Chloride 100 ml @ 100 mls/hr AD PRN IV Last administered on 12/25/24at 19:59; Start 12/25/24 at 08:30; Stop 01/24/25 at 08:29 Potassium Phosphate 250 ml @ 42 mls/hr AD PRN IV; Start 12/25/24 at 08:30; Stop 01/24/25 at 08:29 Albumin Human 250 ml @ 0 mls/hr AD PRN IV Last administered on 12/25/24at 13:21; Start 12/25/24 at 08:30; Stop 12/25/24 at 13:21; Status DC Acetaminophen 650 mg Q4H PRN PO; Start 12/25/24 at 08:30; Stop 01/24/25 at 08:29 Insulin Human Regular 100 unit/ Sodium Chloride 100 ml @ 0 mls/hr AD IV Last administered on 12/26/24at 01:05; Start 12/25/24 at 08:30; Stop 12/27/24 at 08:29; Status DC Cefazolin Sodium 2 gm Q8H IVPB Last administered on 12/26/24at 04:46; Start 12/25/24 at 13:30; Stop 12/26/24 at 05:31; Status DC Tramadol HCl 25 mg Q6H PRN PO; Start 12/25/24 at 08:30; Stop 12/30/24 at 08:29 Tramadol HCl 50 mg Q6H PRN PO Last administered on 12/27/24at 16:29; Start 12/25/24 at 08:30; Stop 12/30/24 at 08:29 Famotidine 20 mg BID IV Last administered on 12/27/24at 20:58; Start 12/25/24 at 09:00; Stop 01/24/25 at 08:59 Sodium Bicarbonate 50 meq AD PRN IV Last administered on 12/25/24at 17:46; Start 12/25/24 at 08:30; Stop 12/28/24 at 08:29 Dextrose 50 ml AD PRN IV; Start 12/25/24 at 08:30; Stop 01/24/25 at 08:29 Glucagon 1 mg AD PRN IM; Start 12/25/24 at 08:30; Stop 01/24/25 at 08:29 Papaverine HCl 60 mg STK-MED ONCE IRRIG Last administered on 12/25/24at 08:30; Start 12/25/24 at 08:30; Stop 12/25/24 at 10:08; Status DC Cefazolin Sodium 1 gm STK-MED ONCE IRRIG Last administered on 12/25/24at 08:30; Start 12/25/24 at 08:30; Stop 12/25/24 at 10:08; Status DC Cefazolin Sodium 2 gm STK-MED ONCE IVPB Last administered on 12/25/24at 08:55; Start 12/25/24 at 08:55; Stop 12/25/24 at 10:08; Status DC Vasopressin 20 units STK-MED ONCE .ROUTE; Start 12/25/24 at 10:14; Stop 12/25/24 at 10:15; Status DC Glycopyrrolate 1 mg STK-MED ONCE .ROUTE; Start 12/25/24 at 10:30; Stop 12/25/24 at 10:30; Status DC Sodium Bicarbonate 250 ml @ As Directed STK-MED ONCE .ROUTE; Start 12/25/24 at 11:09; Stop 12/25/24 at 11:10; Status DC Vasopressin 40 units/Sodium Chloride 40 ml @ 0 mls/hr PROTOCOL IV Last administered on 12/26/24at 01:07; Start 12/25/24 at 12:00; Stop 01/24/25 at 11:59 Iron Sucrose 300 mg/Sodium Chloride 250 ml @ 83 mls/hr DAILY IV Last administered on 12/27/24at 12:46; Start 12/26/24 at 10:00; Stop 12/28/24 at 12:01 Furosemide 20 mg Q12H PO Last administered on 12/27/24at 20:59; Start 12/27/24 at 09:00; Stop 01/26/25 at 08:59 Furosemide 20 mg Q8H5 IV Last administered on 12/27/24at 12:48; Start 12/26/24 at 13:00; Stop 12/27/24 at 17:48; Status DC Folic Acid 1 mg DAILY IV Last administered on 12/27/24at 08:09; Start 12/26/24 at 13:30; Stop 01/25/25 at 13:29 Thiamine HCl 300 mg DAILY IVP Last administered on 12/27/24at 08:08; Start 12/26/24 at 13:30; Stop 12/29/24 at 13:29 Artificial Tears 1 DROP OR AD Q2H PRN OU Last administered on 12/27/24at 08:13; Start 12/26/24 at 14:00; Stop 01/25/25 at 13:59 Insulin Human Regular INSULIN SLIDING SCAL... ACHS SQ; Start 12/27/24 at 11:30; Stop 01/26/25 at 11:29 Piperacillin Sod/ Tazobactam Sod 3.375 gm Q8H IVPB Last administered on 12/27/24at 17:48; Start 12/27/24 at 10:30; Stop 12/27/24 at 21:14; Status DC Sodium Chloride 50 ml AD IV; Start 12/27/24 at 10:30; Stop 12/27/24 at 10:26; Status DC Piperacillin Sod/ Tazobactam Sod 3.375 gm Q12H IVPB Last administered on 12/28/24at 05:54; Start 12/28/24 at 06:30; Stop 01/06/25 at 10:29 WILLARD HOLDEN MD Dec 28, 2024 08:21
--- NOTE | 2024-12-28 14:15 | NUR ---
CT removal Chest tubes X2 removed as ordered by Dr. Dutton. Patient tolerated procedure well. Patient stable, resting in bed. Spouse at bedside.
--- NOTE | 2024-12-28 16:53 | HMCSR ---
APPROVED REPORT EXAM: LIMITED Two-dimensional and M-mode echocardiogram. INDICATION ICD: Ischemic cardiomyopathy 2D Dimensions RVDd5.6 cmLVED Vol(simp.)175.0 mL LVES Vol(simp.)93.7 mL LVEF(%, simp.)46 % LA ESV INDEX (BP)132.71 mL/m2 Left Ventricle The left ventricle is moderately dilated. LVEF is 45-50%. Atria The left atrium is severely dilated. The right atrium is severely dilated. Conclusion Liimited study, no doppler. LVEF is 45-50%.
--- NOTE | 2024-12-28 17:31 | PN ---
[facility] PROGRESS NOTE Date Patient Seen: Dec 28, 2024 Time of Visit: 10:00 Supervising Physician: Dean GREENFIELD MD Primary Care Physician: Nahun Delarosa Outpatient Specialists: Dr Mercado (cardiology) Inpatient Consults: DR Bartolo FOLEY Attending physician: Dr. Bhakta PROBLEM LIST: Postoperative hypoxemic respiratory failure POA Suspected Aspiration VS CAP CAD status post CABG x2 w/ GIANNA clip placement 12/25/[address] Bhakta Postoperative Bradycardia Pacemaker dependent via epicardial leads, Resolved Diastolic heart failure with the EF of 30-35% PER intraoperative MAIRA Intraoperative Afib RVR cardioverted x 2 Postop pulmonary edema Postoperative acute on chronic iron-deficiency anemia, POA S/P 1 unit of PRBC Hyperglycemia with a A1c of 6.0 Electrolyte derangement (hypokalemia, hyperphosphatemia, hypomagnesemia) Cardiomyopathy Cardiomegaly Obesity BMI of 35.4 Comorbidities: Restrictive lung disease Essential hypertension Hyperlipidemia Atrial fibrillation on anticoagulation with the Eliquis last dose on 12/19/24 Iron-deficiency Chronic anemia Arthritis Hernia 60 pack yr smoker INTERVAL HISTORY: Date of admission: 12/25/24 Post CABG day: 3 Code status: Full code Extubated 12/25/24 Lines: Subclavian cordis, chest tube, PIV, left radial a line Nutrition: clears precautions :standard No major overnight events as per RN. Patient is hemodynamically stable and off pressors. T-max to 98.8 and T low of 98.2. Saturating 94% on 3 L via nasal cannula. Continues working on IS. Urine output of 1.9 L and a balance of positive 1 L chest tube drained 300 mL. White count trending down again 16.2 H&H is /26.8 with a platelet count of 233 K. Sodium 136 potassium 4.3 BUN of 32 creatinine of 1.2 improved from yesterday GFR of 65 glucose 126 mg/dL and magnesium of 2.4. 2D echo limited shows left ventricle is moderately dilated LVEF is 45-50% the left atrium severely dilated right atrium is severely dilated X-ray no significant interval changes in the appearance of post CABG chest. Appears to have some mild decrease in pulmonary vascular congestion. Subjective complaints: Patient is awake alert and oriented x 3 . Patient reports he is feeling better. Denies any shortness breath chest pain or palpitations. Currently continues therapy at the moment sitting up in recliner chair. Tolerating p.o. diet well. Family update four/meetings: Family at the bedside and updated. Answered their questions. REVIEW OF SYSTEMS: Const: no fever, fatigue, or weight changes + fatigue Eyes: no recent vision problems ENT: No congestion, ear pain, or sore throat C/V: no chest pain, palpitations or edema _+midsternal incision tenderness. Resp: No cough, congestion, wheezing , or Shortness of breath GI: No abdominal pain, nausea, vomiting, constipation, or diarrhea : No incontinence of or dyuria M/S: No joint or pain swelling Skin: No rash Neuro: no headache, focal numbness, or weakness, dizziness or seizures Psych: no depression or anxiety Heme: no abnormal bruising or bleeding Lymph: no swollen glands PHYSICAL EXAM: GENERAL:AAOx3. recovering post CABG HEENT: Sclera non icteric, moist mucosa NECK: Supple, no JVD, trachea midline LUNGS: Coarse Ronchi breath sounds bilaterally. No wheezes. Chest tube in manuel ce draining sanguinous HEART: HR regular rate and rythm , S1 and S2 ABD: Abdomen soft, nontender. Bowel sounds present EXT: No clubbing cyanosis or edema, left leg Wilfrid wrap. Bilateral pulses with Doppler. NEURO: PPUh1se focal defecits. Vital Signs (last 8hr) Date Time Temp Pulse Resp B/P (MAP) Pulse Ox O2 Delivery O2 Flow Rate FiO2 12/28/24 16:30 78 25 153/64 (93) 94 128/76 (93) 12/28/24 16:15 67 19 155/57 (89) 98 12/28/24 16:00 67 15 151/53 (85) 96 121/66 (84) 12/28/24 16:00 98.8 Nasal Cannula 3.0 12/28/24 15:45 69 17 155/56 (89) 97 12/28/24 15:30 66 20 165/62 (96) 97 114/63 (80) 12/28/24 15:15 68 24 162/61 (94) 97 12/28/24 15:00 62 17 149/52 (84) 97 107/54 (71) 12/28/24 14:45 70 21 143/52 (82) 94 12/28/24 14:30 72 17 147/55 (85) 96 109/63 (78) 12/28/24 14:15 67 21 148/52 (84) 95 12/28/24 14:00 64 28 146/56 (86) 97 103/71 (82) 12/28/24 13:45 65 21 154/60 (91) 97 12/28/24 13:30 71 24 99/37 (57) 81 107/74 (85) 12/28/24 13:15 65 23 124/54 (77) 97 12/28/24 13:00 67 21 128/51 (76) 95 125/61 (82) 12/28/24 12:45 71 22 118/52 (74) 95 12/28/24 12:30 68 21 113/48 (69) 95 108/62 (77) 12/28/24 12:15 64 24 131/43 (72) 95 12/28/24 12:00 64 20 125/45 (71) 94 120/58 (78) 12/28/24 12:00 94 Nasal Cannula* 3 32 12/28/24 12:00 98.8 Nasal Cannula 3.0 12/28/24 11:45 67 26 131/46 (74) 97 12/28/24 11:30 63 15 116/47 (70) 97 98/62 (74) 12/28/24 11:15 63 22 132/48 (76) 95 12/28/24 11:11 62 18 12/28/24 11:11 62 18 N/Cannula Low lpm 3.0 32 12/28/24 11:00 60 16 136/52 (80) 100 113/68 (83) 12/28/24 10:45 65 18 141/54 (83) 96 12/28/24 10:30 58 24 144/55 (84) 95 122/72 (89) 12/28/24 10:15 64 24 146/52 (83) 97 12/28/24 10:00 64 18 143/52 (82) 96 99/58 (72) 12/28/24 09:45 61 17 125/49 (74) 91 12/28/24 09:30 57 17 124/50 (74) 98 LABS: Hematology Labs: Test 12/28/24 04:51 Range/Units White Blood Count 16.2 H 4.8-10.8 K/uL Red Blood Count 3.71 L 4.50-6.20 MIL/uL Hemoglobin 8.0 L 14.0-18.0 g/dL Hematocrit 26.8 L 42-54 % Mean Corpuscular Volume 72.2 L 79-99 fL Mean Corpuscular Hemoglobin 21.6 L 27.0-33.0 pg Mean Corpuscular Hemoglobin Concent 29.9 L 32.0-36.0 g/dL Red Cell Distribution Width 19.1 H 11.0-15.5 % Platelet Count 233 130-400 K/uL Mean Platelet Volume 9.1 7.5-10.5 fL Nucleated Red Blood Cells 0.0 0.0-0.19 % Chemistry Labs: Test 12/28/24 16:34 12/28/24 04:51 12/27/24 03:58 Range/Units Whole Blood Glucose 80 70-110 MG/DL Sodium Level 136 136-145 mmol/L Potassium Level 4.3 3.5-5.1 mmol/L Chloride Level 100 L 101-111 mmol/L Carbon Dioxide Level 31 21-32 mmol/L Blood Urea Nitrogen 32 H 7-18 mg/dL Creatinine 1.2 0.5-1.3 mg/dL Glomerular Filtration Rate Calc 65 >90 mL/min Random Glucose 126 H 70-105 mg/dL Total Calcium 8.7 8.5-10.1 mg/dL Phosphorus Level 4.5 2.5-4.9 mg/dL Magnesium Level 2.40 1.80-2.40 mg/dL Ionized Calcium 1.20 1.15-1.33 MMOL/L Procalcitonin 3.48 H 0.05-0.5 ng/mL DIAGNOSTICS / RADIOLOGY RESULTS: [[place] [address] [place] [id number] IMAGING REPORT Signed PATIENT: KYLE CHASE MR#: [id number] : 1955 SEX: M AGE: 69 LOCATION: 2CH ORDER 2300 STATUS: ADM IN REPORT#: [id number] SERVICE 0600 REASON: Ischemic cardiomyopathy ORDERING PHYSICIAN: DONALDO MCKENZIE PROCEDURE: ECHO FU LD - ECHO 2-D F/U-LTD APPROVED REPORT EXAM: LIMITED Two-dimensional and M-mode echocardiogram. INDICATION ICD: Ischemic cardiomyopathy 2D Dimensions RVDd 5.6 cm LVED Vol(simp.) 175.0 mL LVES Vol(simp.) 93.7 mL LVEF(%, simp.) 46 % LA ESV INDEX (BP) 132.71 mL/m2 Left Ventricle The left ventricle is moderately dilated. LVEF is 45-50%. Atria The left atrium is severely dilated. The right atrium is severely dilated. Conclusion Liimited study, no doppler. LVEF is 45-50%. DICTATED BY: MAYTE LIRIANO MD DATE: 12/28/241409 ELECTRONICALLY SIGNED BY: MAYTE LIRIANO MD DATE: 12/28/241652 ] [address] [id number] IMAGING REPORT Signed PATIENT: KYLE CHASE MR#: [id number] : 1955 SEX: M AGE: 69 LOCATION: [facility] ORDER 2300 STATUS: ADM IN REPORT#: [id number] SERVICE 0400 REASON: s/p CABG ORDERING PHYSICIAN: KANE BHAKTA MD PROCEDURE: CXR1VW - CHEST 1VW EXAM: CR Chest, single view. CLINICAL HISTORY: Status post CABG. COMPARISON: Prior chest radiograph dated 27 December 2024 FINDINGS: Essentially stable appearance since prior exam. Left-sided central catheter with its tip in the superior vena cava. Chest tube is unchanged in position. Stable moderate cardiomegaly with stable moderate pulmonary congestion. There are stable patchy opacities in the bilateral mid and lower zones are probably interstitial edema. There is stable small bilateral pleural effusions. No acute osseous abnormality. IMPRESSION: No significant interval change in the appearance of the post CABG chest since 1 day earlier. /[place] DICTATED BY: ALEX JONES Jr., MD DATE: 12/28/24830 ELECTRONICALLY SIGNED BY: ALEX JONES Jr., MD DATE: 12/28/[address] surgeon recommendations Follow cardiology recommendations Multimodal pain management Monitoring H&H Monitor chest tube output Chest x-ray in the morning Atrovent treatments q.6 hours Continue IS continue Acapella with nebs Transfuse if absolutely necessary to keep hemoglobin above 8 Maintain O2 sats greater than 92% Glycemic control with goal of 80-180 Referral for cardiac rehabilitation Speech to eval once patient is extubated monitor electrolytes: K Goal of 4 Magnesium goal of 2 Replace accordingly Continues Zosyn NEURO: Minimize central acting medications as possible. Maintain fall precautions, adequate lighting during the day PULMONARY: Supplemental 02 as needed. Maintain aspiration precautions at all times CARDIOVASCULAR: Follow hemodynamics. Vital signs per facility protocol GI & NUTRITION: Continue with nutritional support. Continue stool softeners and laxatives as needed. KIDNEYS & ELECTROLYTES: Strict monitoring of intake, output and overall fluid balance. Avoid nephrotoxic medications to the extent possible. Medications to be dosed according to renal function. Monitor electrolytes and replace as needed ENDOCRINE: Maintain blood glucose between 100-180 at all times. Hypoglycemia protocol in place INFECTIOUS DISEASE: Trend temperature, WBC and procalcitonin level Follow cultures, deescalate antibiotics as soon as possible. Panculture if new onset fever ONCOLOGY/HEMATOLOGY/COAGULATION: Monitor for s/s of bleeding Monitor hemoglobin, coagulation studies as needed SKIN: Pressure ulcer prevention per facility protocol Specialty mattress ORTHO/REHAB: Continue PT/OT Prophylaxis: Continue GI and DVT prophylaxis Code Status: Full Resuscitation Disposition: TBD Other: Total patient care time exceeds 35 minutes excluding all procedures. ATTESTATION BY PHYSICIAN I reviewed the documentation, medical decision making, and treatment plan as noted by the mid-level provider above. I agree with the findings and plan of care. Dean Greenfield MD, NELLY J ARNP Dec 28, 2024 17:31
[2024-12-28 20:32] LABS: CREATININE 1.0 mg/dL (0.5-1.3); GLOMERULAR FILTR. RATE CALC 81.0 mL/min (>90); GLUCOSE,RANDOM 99.0 mg/dL (70-105); PHOSPHORUS 2.7 mg/dL (2.5-4.9); SODIUM SERUM 136.0 mmol/L (136-145); UREA NITROGEN, BLOOD 28.0 mg/dL (7-18)
[2024-12-28] MEDS: FAMOTIDINE 20MG TAB PO SCH (20:37)
[2024-12-28] MEDS ORDERED: LIDOCAINE HCL-MPF 2% 5ML VIAL IV ONE (23:30)
[2024-12-28] MEDS: LIDOCAINE HCL/PF 2% IV FOR VENTRICULAR ARRHYTHMIA IV ONE (23:39)
[2024-12-29] VITALS (73 sets, daily range): BP systolic 81–163; BP diastolic 40–107; PULSE 54–75; RESP 12–26; TEMP 97.7–98.2; O2SAT 2–100
[2024-12-29 03:30] LABS: NUCLEATED RED BLOOD CELLS 0.3 % (0.0-0.19); PLATELET COUNT (AUTO) 203.0 K/uL (130-400); RED BLOOD CELL COUNT(AUTO) 3.7 MIL/uL (4.50-6.20); RED CELL DISTRIBUTION WIDTH 19.3 % (11.0-15.5); WHITE BLOOD COUNT (AUTO) 9.8 K/uL (4.8-10.8)
[2024-12-29 03:42] LABS: CREATININE 0.9 mg/dL (0.5-1.3); GLOMERULAR FILTR. RATE CALC 92.0 mL/min (>90); GLUCOSE,RANDOM 89.0 mg/dL (70-105); SODIUM SERUM 139.0 mmol/L (136-145); UREA NITROGEN, BLOOD 23.0 mg/dL (7-18)
--- NOTE | 2024-12-29 07:41 | PN ---
1. Multivessel coronary artery disease. 2. Status post CABG x2 with left atrial appendage ligation 12/25/2024. 3. Ischemic cardiomyopathy. 4. Blood loss anemia. 5. Persistent atrial fibrillation. 6. Hypertension. 7. Hyperlipidemia. 8. Persistent atrial fibrillation. 9. History of CVA. Patient says he feels well, denies shortness of breath, but does appear mildly breathless. Neck veins are distended to the angle of the mandible with the patient and a 90 degree upright position. Carotid volume is fair. Diminished breath sounds diffusely, I do not appreciate rales or retractions. S1 and S2 distant, no murmur, irregular rhythm. Mild generalized edema today. Chest x-ray shows extensive bilateral infiltrates which are worsening. Echocardiogram demonstrates improvement in ejection fracture after surgery, currently 40-45% and previously 30-35%. BUN/creatinine ratio was 321 ten leukocytosis is improving, postoperative anemia is stable. Impression and plan: Volume overloaded, severe pulmonary edema despite improvement in ejection fraction postoperative lay, severely. Renal. We will add Milrinone and continue IV diuresis. Vitals/Labs Vital Signs Date Time Temp Pulse Resp B/P (MAP) Pulse Ox O2 Delivery O2 Flow Rate FiO2 12/29/24 06:42 69 22 123/63 93 Nasal Cannula 1.5 12/29/24 06:24 32 12/29/24 04:41 98.1 Laboratory Tests 12/28/24 20:00 12/29/24 03:10 Medications Current Medications Epinephrine HCl 10 mg/Sodium Chloride 250 ml @ 0 mls/hr AD PRN IV Last administered on 12/26/24at 01:06; Start 12/25/24 at 06:00; Stop 01/24/25 at 05:59 Norepinephrine Bitartrate 250 ml @ 0 mls/hr AD PRN IV Last administered on 12/25/24at 20:46; Start 12/25/24 at 06:00; Stop 01/24/25 at 05:59 Aminocaproic Acid 97381 mg/Sodium Chloride 480 ml @ 0 mls/hr AD PRN IV; Start 12/25/24 at 06:00; Stop 01/24/25 at 05:59 Cefazolin Sodium 1 gm STK-MED ONCE .ROUTE; Start 12/25/24 at 06:25; Stop 12/25/24 at 06:25; Status DC Heparin Sodium/ Sodium Chloride 500 ml @ As Directed STK-MED ONCE IV; Start 12/25/24 at 06:25; Stop 12/25/24 at 06:25; Status DC Papaverine HCl 60 mg STK-MED ONCE .ROUTE; Start 12/25/24 at 06:25; Stop 12/25/24 at 06:26; Status DC Cefazolin Sodium 2 gm STK-MED ONCE .ROUTE; Start 12/25/24 at 07:05; Stop 12/25/24 at 07:11; Status DC Sodium Chloride 1,000 ml @ As Directed STK-MED ONCE IV Last administered on 12/25/24at 07:26; Start 12/25/24 at 07:05; Stop 12/25/24 at 07:11; Status DC Nitroglycerin/ Dextrose 1 ml @ As Directed STK-MED ONCE .ROUTE; Start 12/25/24 at 07:29; Stop 12/25/24 at 07:34; Status DC Cardioplegic Solution 1 ml @ As Directed STK-MED ONCE IV; Start 12/25/24 at 07:48; Stop 12/25/24 at 07:48; Status DC Protamine Sulfate 250 mg STK-MED ONCE IV; Start 12/25/24 at 07:55; Stop 12/25/24 at 07:55; Status DC Lidocaine HCl 100 mg STK-MED ONCE .ROUTE; Start 12/25/24 at 07:55; Stop 12/25/24 at 07:55; Status DC Heparin Sodium (Porcine) 10,000 unit STK-MED ONCE .ROUTE; Start 12/25/24 at 07:55; Stop 12/25/24 at 07:55; Status DC Epinephrine HCl 1 mg STK-MED ONCE .ROUTE; Start 12/25/24 at 07:55; Stop 12/25/24 at 07:55; Status DC Sodium Bicarbonate 200 ml @ As Directed STK-MED ONCE .ROUTE; Start 12/25/24 at 07:55; Stop 12/25/24 at 07:55; Status DC Norepinephrine Bitartrate 4 mg STK-MED ONCE IV; Start 12/25/24 at 07:55; Stop 12/25/24 at 07:55; Status DC Propofol 200 mg STK-MED ONCE IV; Start 12/25/24 at 07:55; Stop 12/25/24 at 07:56; Status DC Fentanyl Citrate 1,000 mcg STK-MED ONCE IJ; Start 12/25/24 at 07:56; Stop 12/25/24 at 07:56; Status DC Midazolam HCl 2 mg STK-MED ONCE .ROUTE; Start 12/25/24 at 07:56; Stop 12/25/24 at 07:56; Status DC Rocuronium [place] 50 mg STK-MED ONCE .ROUTE; Start 12/25/24 at 07:56; Stop 12/25/24 at 07:56; Status DC Acetaminophen 1,000 mg Q6H6 IV Last administered on 12/26/24at 06:08; Start 12/25/24 at 12:00; Stop 12/26/24 at 11:59; Status DC Aspirin 81 mg ONCE ONCE NG; Start 12/25/24 at 12:00; Stop 12/25/24 at 12:01; Status DC Aspirin 81 mg DAILY PO Last administered on 12/28/24at 08:49; Start 12/26/24 at 09:00; Stop 01/25/25 at 08:59 Docusate Sodium 100 mg BID PO Last administered on 12/28/24at 20:38; Start 12/25/24 at 21:00; Stop 01/24/25 at 20:59 Lactulose 20 gm BID PRN PO; Start 12/25/24 at 08:00; Stop 01/24/25 at 07:59 Furosemide 20 mg Q12H PO; Start 12/27/24 at 09:00; Stop 12/26/24 at 10:17; Status DC Furosemide 20 mg Q12H IV Last administered on 12/26/24at 08:08; Start 12/26/24 at 09:00; Stop 12/26/24 at 10:49; Status DC Atorvastatin Calcium 40 mg HS PO Last administered on 12/28/24at 20:37; Start 12/25/24 at 21:00; Stop 01/24/25 at 20:59 Enoxaparin Sodium 30 mg DAILY SQ; Start 12/25/24 at 09:00; Stop 01/24/25 at 08:59 Metoprolol Tartrate 12.5 mg BID PO Last administered on 12/28/24at 20:38; Start 12/27/24 at 09:00; Stop 01/26/25 at 08:59 Magnesium Hydroxide 30 ml DAILY PRN PO; Start 12/25/24 at 08:00; Stop 01/24/25 at 07:59 Dexmedetomidine/ Sodium Chloride 400 mcg PROTOCOL IV; Start 12/25/24 at 08:00; Stop 12/26/24 at 07:59; Status DC Acetaminophen 650 mg Q6H PRN PO Last administered on 12/27/24at 21:01; Start 12/25/24 at 08:00; Stop 01/24/25 at 07:59 Ketamine HCl 500 mg STK-MED ONCE IJ; Start 12/25/24 at 08:13; Stop 12/25/24 at 08:13; Status DC Sodium Chloride 1,000 ml @ 10 mls/hr ONCE IV Last administered on 12/25/24at 12:13; Start 12/25/24 at 08:30; Stop 12/26/24 at 08:29; Status DC Sodium Chloride 10 ml Q8H PRN IVP; Start 12/25/24 at 08:30; Stop 01/24/25 at 08:29 Morphine Sulfate 0.5 mg Q2H PRN IV; Start 12/25/24 at 09:00; Stop 01/01/25 at 08:59 Morphine Sulfate 1 mg Q2H PRN IV; Start 12/25/24 at 09:00; Stop 01/01/25 at 08:59 Acetaminophen 650 mg Q4H PRN RC; Start 12/25/24 at 08:30; Stop 01/24/25 at 08:29 Ondansetron HCl 4 mg Q6H PRN IV Last administered on 12/27/24at 01:11; Start 12/25/24 at 08:30; Stop 01/24/25 at 08:29 Sodium Chloride 500 ml @ 0 mls/hr AD IV; Start 12/25/24 at 08:30; Stop 01/24/25 at 08:29 Nitroglycerin/ Dextrose 0 ml @ 0 mls/hr AD IV; Start 12/25/24 at 08:30; Stop 12/28/24 at 08:29; Status DC Propofol 100 ml @ 0 mls/hr AD PRN IV; Start 12/25/24 at 08:30; Stop 12/29/24 at 08:29 Norepinephrine Bitartrate 8 mg/ Dextrose 250 ml @ 0 mls/hr AD PRN IV; Start 12/25/24 at 08:30; Stop 12/25/24 at 08:40; Status DC Epinephrine HCl 10 mg/Sodium Chloride 250 ml @ 0 mls/hr AD PRN IV; Start 12/25/24 at 08:30; Stop 12/25/24 at 08:40; Status DC Aminocaproic Acid 71665 mg/Sodium Chloride 310 ml @ 25 mls/hr AD IV; Start 12/25/24 at 08:30; Stop 12/25/24 at 08:40; Status DC Calcium Gluconate 1 gm/Sodium Chloride 60 ml @ 200 mls/hr AD PRN IV Last administered on 12/26/24at 15:57; Start 12/25/24 at 08:30; Stop 01/24/25 at 08:29 Magnesium Sulfate 50 ml @ 12.5 mls/hr AD PRN IV Last administered on 12/25/24at 13:00; Start 12/25/24 at 08:30; Stop 01/24/25 at 08:29 Potassium Chloride 100 ml @ 100 mls/hr AD PRN IV Last administered on 12/25/24at 19:59; Start 12/25/24 at 08:30; Stop 01/24/25 at 08:29 Potassium Phosphate 250 ml @ 42 mls/hr AD PRN IV; Start 12/25/24 at 08:30; Stop 01/24/25 at 08:29 Albumin Human 250 ml @ 0 mls/hr AD PRN IV Last administered on 12/25/24at 13:21; Start 12/25/24 at 08:30; Stop 12/25/24 at 13:21; Status DC Acetaminophen 650 mg Q4H PRN PO; Start 12/25/24 at 08:30; Stop 01/24/25 at 08:29 Insulin Human Regular 100 unit/ Sodium Chloride 100 ml @ 0 mls/hr AD IV Last administered on 12/26/24at 01:05; Start 12/25/24 at 08:30; Stop 12/27/24 at 08:29; Status DC Cefazolin Sodium 2 gm Q8H IVPB Last administered on 12/26/24at 04:46; Start 12/25/24 at 13:30; Stop 12/26/24 at 05:31; Status DC Tramadol HCl 25 mg Q6H PRN PO; Start 12/25/24 at 08:30; Stop 12/30/24 at 08:29 Tramadol HCl 50 mg Q6H PRN PO Last administered on 12/27/24at 16:29; Start 12/25/24 at 08:30; Stop 12/30/24 at 08:29 Famotidine 20 mg BID IV Last administered on 12/28/24at 08:50; Start 12/25/24 at 09:00; Stop 12/28/24 at 19:10; Status DC Sodium Bicarbonate 50 meq AD PRN IV Last administered on 12/25/24at 17:46; Start 12/25/24 at 08:30; Stop 12/28/24 at 08:29; Status DC Dextrose 50 ml AD PRN IV; Start 12/25/24 at 08:30; Stop 01/24/25 at 08:29 Glucagon 1 mg AD PRN IM; Start 12/25/24 at 08:30; Stop 01/24/25 at 08:29 Papaverine HCl 60 mg STK-MED ONCE IRRIG Last administered on 12/25/24at 08:30; Start 12/25/24 at 08:30; Stop 12/25/24 at 10:08; Status DC Cefazolin Sodium 1 gm STK-MED ONCE IRRIG Last administered on 12/25/24at 08:30; Start 12/25/24 at 08:30; Stop 12/25/24 at 10:08; Status DC Cefazolin Sodium 2 gm STK-MED ONCE IVPB Last administered on 12/25/24at 08:55; Start 12/25/24 at 08:55; Stop 12/25/24 at 10:08; Status DC Vasopressin 20 units STK-MED ONCE .ROUTE; Start 12/25/24 at 10:14; Stop 12/25/24 at 10:15; Status DC Glycopyrrolate 1 mg STK-MED ONCE .ROUTE; Start 12/25/24 at 10:30; Stop 12/25/24 at 10:30; Status DC Sodium Bicarbonate 250 ml @ As Directed STK-MED ONCE .ROUTE; Start 12/25/24 at 11:09; Stop 12/25/24 at 11:10; Status DC Vasopressin 40 units/Sodium Chloride 40 ml @ 0 mls/hr PROTOCOL IV Last administered on 12/26/24at 01:07; Start 12/25/24 at 12:00; Stop 01/24/25 at 11:59 Iron Sucrose 300 mg/Sodium Chloride 250 ml @ 83 mls/hr DAILY IV Last administered on 12/28/24at 10:11; Start 12/26/24 at 10:00; Stop 12/28/24 at 12:01; Status DC Furosemide 20 mg Q12H PO Last administered on 12/28/24at 20:38; Start 12/27/24 at 09:00; Stop 01/26/25 at 08:59 Furosemide 20 mg Q8H5 IV Last administered on 12/27/24at 12:48; Start 12/26/24 at 13:00; Stop 12/27/24 at 17:48; Status DC Folic Acid 1 mg DAILY IV Last administered on 12/28/24at 10:11; Start 12/26/24 at 13:30; Stop 01/25/25 at 13:29 Thiamine HCl 300 mg DAILY IVP Last administered on 12/28/24at 08:49; Start 12/26/24 at 13:30; Stop 12/29/24 at 13:29 Artificial Tears 1 DROP OR AD Q2H PRN OU Last administered on 12/27/24at 08:13; Start 12/26/24 at 14:00; Stop 01/25/25 at 13:59 Insulin Human Regular INSULIN SLIDING SCAL... ACHS SQ; Start 12/27/24 at 11:30; Stop 01/26/25 at 11:29 Piperacillin Sod/ Tazobactam Sod 3.375 gm Q8H IVPB Last administered on 12/27/24at 17:48; Start 12/27/24 at 10:30; Stop 12/27/24 at 21:14; Status DC Sodium Chloride 50 ml AD IV; Start 12/27/24 at 10:30; Stop 12/27/24 at 10:26; Status DC Piperacillin Sod/ Tazobactam Sod 3.375 gm Q12H IVPB Last administered on 12/29/24at 06:57; Start 12/28/24 at 06:30; Stop 01/06/25 at 10:29 Ipratropium [place] 0.5 mg [id number] IH Last administered on 12/29/24at 06:23; Start 12/28/24 at 12:00; Stop 01/27/25 at 11:59 Ipratropium [place] 0.5 mg STK-MED ONCE IH; Start 12/28/24 at 10:55; Stop 12/28/24 at 10:55; Status DC Heparin Sodium (Porcine) 10,000 unit STK-MED ONCE IV; Start 12/25/24 at 11:01; Stop 12/28/24 at 11:01; Status DC Famotidine 20 mg BID PO Last administered on 12/28/24at 20:37; Start 12/28/24 at 21:00; Stop 01/27/25 at 20:59 Lidocaine HCl 5 ml ONCE ONCE IV; Start 12/28/24 at 23:30; Stop 12/28/24 at 23:35; Status DC Lidocaine HCl 5 ml ONCE ONCE IV Last administered on 12/28/24at 23:39; Start 12/28/24 at 23:45; Stop 12/28/24 at 23:46; Status DC WILLARD HOLDEN MD Dec 29, 2024 07:41
--- NOTE | 2024-12-29 08:50 | NUR ---
Dr Hardwick rounded on patient Updated Dr hardwick on patient status As per , to change order from PO to IV as discussed
[2024-12-29] MEDS: MILRINONE-D5W 20 MG/100 ML 100 ML IV SCH (09:13)
[2024-12-29] MEDS: SODIUM CHLORIDE 3% FOR INHALATION 4 ML/AMP VIAL.NEB IH ONE ×2 (11:15→18:35)
--- NOTE | 2024-12-29 12:01 | PN ---
[facility] PROGRESS NOTE Date Patient Seen: Dec 29, 2024 Time of Visit: 11:58 Supervising Physician: Dr Hyatt Primary Care Physician: Nahun Delarosa Outpatient Specialists: Dr Mercado (cardiology) Inpatient Consults: OG, DR Bartolo Mercado Attending physician: Dr. Dutton PROBLEM LIST: Postoperative hypoxemic respiratory failure POA Suspected Aspiration VS CAP CAD status post CABG x2 w/ GIANNA clip placement 12/25/[address] Dutton Postoperative Bradycardia Pacemaker dependent via epicardial leads, Resolved Diastolic heart failure with the EF of 30-35% PER intraoperative MAIRA Intraoperative Afib RVR cardioverted x 2 Postop pulmonary edema Postoperative acute on chronic iron-deficiency anemia, POA S/P 1 unit of PRBC Hyperglycemia with a A1c of 6.0 Electrolyte derangement (hypokalemia, hyperphosphatemia, hypomagnesemia) Cardiomyopathy Cardiomegaly Obesity BMI of 35.4 Comorbidities: Restrictive lung disease Essential hypertension Hyperlipidemia Atrial fibrillation on anticoagulation with the Eliquis last dose on 12/19/24 Iron-deficiency Chronic anemia Arthritis Hernia 60 pack yr smoker INTERVAL HISTORY: Date of admission: 12/25/24 Post CABG day: 4 Code status: Full code Extubated 12/25/24 Lines: out Nutrition: Full precautions :standard Patient is sitting comfortably at bedside chair, currently on nasal cannula 3 L, good saturations, labs and imaging has been reviewed Increased congestion on chest x-ray compared to that of yesterday, patient on Milrinone for diuresis. Patient with his sitting at bedside updated. No acute events overnight. Afebrile Plan: Continue diuresis, following cardiology recs, follow Cardiothoracic Surgeons postop protocol PT/OT I&Os Daily labs, chest x-ray Currently on Zosyn, follow cultures Tele REVIEW OF SYSTEMS: Const: no fever, fatigue, or weight changes + fatigue Eyes: no recent vision problems ENT: No congestion, ear pain, or sore throat C/V: no chest pain, palpitations or edema _+midsternal incision tenderness. Resp: No cough, congestion, wheezing , or Shortness of breath GI: No abdominal pain, nausea, vomiting, constipation, or diarrhea : No incontinence of or dyuria M/S: No joint or pain swelling Skin: No rash Neuro: no headache, focal numbness, or weakness, dizziness or seizures Psych: no depression or anxiety Heme: no abnormal bruising or bleeding Lymph: no swollen glands PHYSICAL EXAM: GENERAL:AAOx3. recovering post CABG HEENT: Sclera non icteric, moist mucosa NECK: Supple, no JVD, trachea midline LUNGS: Coarse Ronchi breath sounds bilaterally. No wheezes. Chest tube in place draining sanguinous HEART: HR regular rate and rythm , S1 and S2 ABD: Abdomen soft, nontender. Bowel sounds present EXT: No clubbing cyanosis or edema, left leg Jackson wrap. Bilateral pulses with Doppler. NEURO: [id number] focal defecits. Vital Signs (last 8hr) Date Time Temp Pulse Resp B/P (MAP) Pulse Ox O2 Delivery O2 Flow Rate FiO2 12/29/24 11:19 68 18 N/Cannula Low lpm 4.0 36 12/29/24 11:15 70 18 12/29/24 10:15 69 20 102/61 96 Nasal Cannula 3.0 12/29/24 10:00 62 17 104/51 91 Nasal Cannula 2.5 12/29/24 09:45 63 15 107/49 90 Nasal Cannula 1.5 12/29/24 09:30 60 14 102/60 91 Nasal Cannula 1.5 12/29/24 09:15 62 16 116/40 96 Nasal Cannula 1.5 12/29/24 09:00 61 18 105/63 96 Nasal Cannula 1.5 12/29/24 08:45 54 19 103/62 94 Nasal Cannula 1.5 12/29/24 08:30 57 20 115/57 96 Nasal Cannula 1.5 12/29/24 08:15 62 18 111/49 96 Nasal Cannula 1.5 12/29/24 08:00 63 20 110/62 95 Nasal Cannula 1.5 12/29/24 08:00 2 Nasal Cannula* 1 24 12/29/24 07:45 65 16 108/63 95 Nasal Cannula 1.5 12/29/24 07:30 72 17 127/61 96 Nasal Cannula 1.5 12/29/24 07:15 66 18 125/66 97 Nasal Cannula 1.5 12/29/24 07:00 65 17 119/65 97 Nasal Cannula 1.5 12/29/24 06:42 69 22 123/63 93 Nasal Cannula 1.5 12/29/24 06:24 65 18 N/Cannula Low lpm 3.0 32 12/29/24 06:23 65 18 12/29/24 06:11 69 22 163/62 99 Nasal Cannula 1.5 12/29/24 05:54 67 24 125/68 90 Nasal Cannula 3.0 12/29/24 05:11 58 17 97/47 95 Nasal Cannula 1.5 12/29/24 04:41 98.1 66 21 133/74 97 Nasal Cannula 1.5 12/29/24 04:15 2 Nasal Cannula* 1 24 12/29/24 04:11 60 18 127/69 94 Nasal Cannula 1.5 LABS: Hematology Labs: Test 12/29/24 03:10 Range/Units White Blood Count 9.8 # 4.8-10.8 K/uL Red Blood Count 3.70 L 4.50-6.20 MIL/uL Hemoglobin 8.0 L 14.0-18.0 g/dL Hematocrit 27.7 L 42-54 % Mean Corpuscular Volume 74.9 L 79-99 fL Mean Corpuscular Hemoglobin 21.6 L 27.0-33.0 pg Mean Corpuscular Hemoglobin Concent 28.9 L 32.0-36.0 g/dL Red Cell Distribution Width 19.3 H 11.0-15.5 % Platelet Count 203 130-400 K/uL Mean Platelet Volume 9.1 7.5-10.5 fL Nucleated Red Blood Cells 0.3 H 0.0-0.19 % Chemistry Labs: Test 12/29/24 03:10 12/28/24 20:00 12/28/24 16:34 Range/Units Sodium Level 139 136-145 mmol/L Potassium Level 4.1 3.5-5.1 mmol/L Chloride Level 103 101-111 mmol/L Carbon Dioxide Level 31 21-32 mmol/L Blood Urea Nitrogen 23 H 7-18 mg/dL Creatinine 0.9 0.5-1.3 mg/dL Glomerular Filtration Rate Calc 92 >90 mL/min Random Glucose 89 70-105 mg/dL Total Calcium 8.7 8.5-10.1 mg/dL B-Type Natriuretic Peptide 565 H 0-100 pg/mL Procalcitonin 0.79 H 0.05-0.5 ng/mL Ionized Calcium 1.19 1.15-1.33 MMOL/L Phosphorus Level 2.7 2.5-4.9 mg/dL Magnesium Level 2.30 1.80-2.40 mg/dL Whole Blood Glucose 80 70-110 MG/DL DIAGNOSTICS / RADIOLOGY RESULTS: [ ] PLAN NEURO: Minimize central acting medications as possible. Fall Precautions. Well lighted room through the day and minimize interruptions through the night to prevent acute delirium. PULMONARY: Supplemental 02 as needed Titrate Fio2 to keep Spo2 > or = 90% DuoNebs and CPT as needed IS hourly while awake for pulmonary hygiene Out of bed to chair as tolerated CARDIOVASCULAR: Follow hemodynamics. Titrate vasopressor to keep MAP >65 or systolic blood pressure >95mmHg DRIPS: epi GI & NUTRITION: Continue nutritional support Aspirations precautions Prokinetic agents and laxatives as needed KIDNEYS & ELECTROLYTES: Strict monitoring of intake and output Daily weights Avoid nephrotoxic agents Monitor electrolytes and replace as needed Goal urine output of 30mL/hr or 0.5mL/kg/hr ENDOCRINE: Maintain blood glucose between 100-180 at all times. Insulin sliding scale for blood glucose management INFECTIOUS DISEASE: Trend temperature. Veloz-culture if febrile. Micro: MRSA Negative Antibiotics: Ancef x 3 completed Zosyn 12/27/24 L HEMATOLOGY & COAGULATION: Monitor H&H. Keep Hgb > 7 Transfuse 1 unit of PRBC for Hgb < 7 Transfuse 1 pack of platelets of platelets < 20, 000 Watch for any signs and symptoms of bleeding SKIN: Pressure ulcer prevention per facility protocol Rehab: PT/OT Prophylaxis: GI: pepcid DVT: jackson wraps per CV surgery Code Status: Full Resuscitation Disposition: ICU Other: Total patient care time exceeds 35 minutes excluding all procedures. Case was discussed and seen with my supervising physician. The above plan was formulated and agreed upon. MAYTE RUIZ Dec 29, 2024 12:01
--- NOTE | 2024-12-29 13:56 | NUR ---
Dr. Dutton communication. Informed Dr. Dutton of dysrhythmias noted on ECG monitor and current Milrinone drip started this morning as ordered by Dr. Mar. Per , clarify with Dr. Mar Milrinone drip. Placed call to Dr. Mar, informed of dysrhythmias after starting Milrinone drip. Per MD, stop Milrinone drip and start Amiodarone protocol, and give Lovenox 1 mg/kg every 12 hours for atrial fibrillation. Orders followed through.
[2024-12-29] MEDS: AMIOdarone 150MG/100ML BAG 100 ML IV ONE (14:21)
[2024-12-29] MEDS ORDERED: ENOXAPARIN SODIUM 120 MG/0.8ML SQ SCH (14:30)
[2024-12-29] MEDS: AMIODARONE 360MG/200ML BAG 200 ML IV ONE (14:37)
--- NOTE | 2024-12-29 18:35 | NUR ---
Dr. Dutton Rounds Dr. Dutton at bedside. Per MAURY JEAN to stop Amiodarone drip and keep patient in ICU.
--- NOTE | 2024-12-29 19:07 | PN ---
SUBJECTIVE: A 69-year-old, status post CABG, coursing postoperative day # 4. OBJECTIVE: GENERAL: Awake, alert, afebrile, neurologically intact. VITAL SIGNS: Stable as recorded in the medical record. CHEST: Sternum stable, incision sealed. LUNGS: Clear. EXTREMITIES: Warm and well perfused. No evidence of DVT, hematoma, or infection. ASSESSMENT AND PLAN: Status post CABG. PROBLEMS: * Coronary artery disease. Aspirin and beta-blockers. * Fluid overload. Lasix 20 mg twice a day. * Bradycardia. Hold amiodarone. * Dyslipidemia. Lipitor 40 mg once a day. PLAN: Out of bed, ambulating, PT/OT, cardiac rehab. TID: [id number] RECEIPT: [id number]
[2024-12-29] MEDS: ENOXAPARIN SODIUM 120 MG/0.8ML SQ SCH (20:53)
--- NOTE | 2024-12-29 23:23 | HMCIMG ---
EXAM: CR Chest, single view CLINICAL HISTORY: Status post CABG COMPARISON: Prior chest radiograph dated 28 December 2024. FINDINGS: Poststernotomy status. Moderate to severe cardiomegaly with bilateral pulmonary congestion. Mild left-sided pleural effusion. Patchy areas of groundglass opacities in the bilateral mid and lower zones. No evidence of pneumothorax. Atherosclerotic calcification of the aortic arch. No acute osseous abnormality. IMPRESSION: Poststernotomy status. Moderate to severe cardiomegaly with bilateral pulmonary congestion. Mild left-sided pleural effusion. Patchy areas of groundglass opacities in the bilateral mid and lower zones. No evidence of pneumothorax. Compared to the prior study, there is a mild interval increase in the left lower lobe infiltrates and effusion. /[place]
[2024-12-30] VITALS (22 sets, daily range): BP systolic 107–164; BP diastolic 54–86; PULSE 48–90; RESP 14–27; TEMP 97.5–98.9; O2SAT 93–100
[2024-12-30 05:10] LABS: IMMATURE GRANULOCYTE ABSOLUTE 0.08 K/uL (0-1); NUCLEATED RED BLOOD CELLS 0.0 % (0.0-0.19); PLATELET COUNT (AUTO) 212 K/uL (130-400); RED BLOOD CELL COUNT(AUTO) 3.70 MIL/uL (4.50-6.20); RED CELL DISTRIBUTION WIDTH 19.6 % (11.0-15.5); WHITE BLOOD COUNT (AUTO) 7.3 K/uL (4.8-10.8)
[2024-12-30 05:33] LABS: ASPARTATE AMINOTRANSFERASE 30.0 U/L (10-37); CREATININE 1.0 mg/dL (0.5-1.3); GLOMERULAR FILTR. RATE CALC 81.0 mL/min (>90); GLUCOSE,RANDOM 92.0 mg/dL (70-105); SODIUM SERUM 140.0 mmol/L (136-145); TOTAL PROTEIN, SERUM 5.6 g/dL (6.0-8.3); UREA NITROGEN, BLOOD 17.0 mg/dL (7-18)
[2024-12-30] MEDS: PoTASSium chloRIDE 20MEQ ER 20 MEQ ERTAB PO PRN (08:18)
--- NOTE | 2024-12-30 08:21 | PN ---
1. Multivessel coronary artery disease. 2. Status post CABG x2 with left atrial appendage ligation 12/25/2024. 3. Ischemic cardiomyopathy, EF IMPROVED FROM 30-30 5-40 5-50 POSTOPERATIVE. 4. Blood loss anemia. 5. Persistent atrial fibrillation. 6. Hypertension. 7. Hyperlipidemia. 8. Persistent atrial fibrillation. 9. History of CVA. 10. Postoperative pulmonary edema Where as in previous days the patient reported feeling better than I would have expected, today he is complaining of anxiety and shortness of breath. Physical exam shows a tired looking patient in no respiratory distress with positive HJR and positive JVD, now exhibiting rales in the lower 2/3 of the lungs bilaterally. Heart tones are irregular but preserved, no murmur. Impression and plan: Patient did not tolerate Milrinone because it caused tachycardia but we have achieved more greater than 3 L diuresis in the last 24 hours with intensification of diuretics. We will continue current therapy but hold amiodarone and metoprolol temporarily, allowing a heart rate to increase to the 80-90 range. Vitals/Labs Vital Signs Date Time Temp Pulse Resp B/P (MAP) Pulse Ox O2 Delivery O2 Flow Rate FiO2 12/30/24 06:34 63 22 12/30/24 06:33 N/Cannula Low lpm 2.0 28 12/30/24 06:00 140/75 98 12/30/24 04:00 97.7 Laboratory Tests 12/30/24 04:55 Medications Current Medications Epinephrine HCl 10 mg/Sodium Chloride 250 ml @ 0 mls/hr AD PRN IV Last administered on 12/26/24at 01:06; Start 12/25/24 at 06:00; Stop 01/24/25 at 05:59 Norepinephrine Bitartrate 250 ml @ 0 mls/hr AD PRN IV Last administered on 12/25/24at 20:46; Start 12/25/24 at 06:00; Stop 01/24/25 at 05:59 Aminocaproic Acid 94713 mg/Sodium Chloride 480 ml @ 0 mls/hr AD PRN IV; Start 12/25/24 at 06:00; Stop 01/24/25 at 05:59 Cefazolin Sodium 1 gm STK-MED ONCE .ROUTE; Start 12/25/24 at 06:25; Stop 12/25/24 at 06:25; Status DC Heparin Sodium/ Sodium Chloride 500 ml @ As Directed STK-MED ONCE IV; Start 12/25/24 at 06:25; Stop 12/25/24 at 06:25; Status DC Papaverine HCl 60 mg STK-MED ONCE .ROUTE; Start 12/25/24 at 06:25; Stop 12/25/24 at 06:26; Status DC Cefazolin Sodium 2 gm STK-MED ONCE .ROUTE; Start 12/25/24 at 07:05; Stop 12/25/24 at 07:11; Status DC Sodium Chloride 1,000 ml @ As Directed STK-MED ONCE IV Last administered on 12/25/24at 07:26; Start 12/25/24 at 07:05; Stop 12/25/24 at 07:11; Status DC Nitroglycerin/ Dextrose 1 ml @ As Directed STK-MED ONCE .ROUTE; Start 12/25/24 at 07:29; Stop 12/25/24 at 07:34; Status DC Cardioplegic Solution 1 ml @ As Directed STK-MED ONCE IV; Start 12/25/24 at 07:48; Stop 12/25/24 at 07:48; Status DC Protamine Sulfate 250 mg STK-MED ONCE IV; Start 12/25/24 at 07:55; Stop 12/25/24 at 07:55; Status DC Lidocaine HCl 100 mg STK-MED ONCE .ROUTE; Start 12/25/24 at 07:55; Stop 12/25/24 at 07:55; Status DC Heparin Sodium (Porcine) 10,000 unit STK-MED ONCE .ROUTE; Start 12/25/24 at 07:55; Stop 12/25/24 at 07:55; Status DC Epinephrine HCl 1 mg STK-MED ONCE .ROUTE; Start 12/25/24 at 07:55; Stop 12/25/24 at 07:55; Status DC Sodium Bicarbonate 200 ml @ As Directed STK-MED ONCE .ROUTE; Start 12/25/24 at 07:55; Stop 12/25/24 at 07:55; Status DC Norepinephrine Bitartrate 4 mg STK-MED ONCE IV; Start 12/25/24 at 07:55; Stop 12/25/24 at 07:55; Status DC Propofol 200 mg STK-MED ONCE IV; Start 12/25/24 at 07:55; Stop 12/25/24 at 07:56; Status DC Fentanyl Citrate 1,000 mcg STK-MED ONCE IJ; Start 12/25/24 at 07:56; Stop 12/25/24 at 07:56; Status DC Midazolam HCl 2 mg STK-MED ONCE .ROUTE; Start 12/25/24 at 07:56; Stop 12/25/24 at 07:56; Status DC Rocuronium [place] 50 mg STK-MED ONCE .ROUTE; Start 12/25/24 at 07:56; Stop 12/25/24 at 07:56; Status DC Acetaminophen 1,000 mg Q6H6 IV Last administered on 12/26/24at 06:08; Start 12/25/24 at 12:00; Stop 12/26/24 at 11:59; Status DC Aspirin 81 mg ONCE ONCE NG; Start 12/25/24 at 12:00; Stop 12/25/24 at 12:01; Status DC Aspirin 81 mg DAILY PO Last administered on 12/29/24at 08:32; Start 12/26/24 at 09:00; Stop 01/25/25 at 08:59 Docusate Sodium 100 mg BID PO Last administered on 12/29/24at 20:51; Start 12/25/24 at 21:00; Stop 01/24/25 at 20:59 Lactulose 20 gm BID PRN PO; Start 12/25/24 at 08:00; Stop 01/24/25 at 07:59 Furosemide 20 mg Q12H PO; Start 12/27/24 at 09:00; Stop 12/26/24 at 10:17; Status DC Furosemide 20 mg Q12H IV Last administered on 12/26/24at 08:08; Start 12/26/24 at 09:00; Stop 12/26/24 at 10:49; Status DC Atorvastatin Calcium 40 mg HS PO Last administered on 12/29/24at 20:52; Start 12/25/24 at 21:00; Stop 01/24/25 at 20:59 Enoxaparin Sodium 30 mg DAILY SQ Last administered on 12/29/24at 08:34; Start 12/25/24 at 09:00; Stop 12/29/24 at 14:02; Status DC Metoprolol Tartrate 12.5 mg BID PO Last administered on 12/29/24at 20:52; Start 12/27/24 at 09:00; Stop 01/26/25 at 08:59 Magnesium Hydroxide 30 ml DAILY PRN PO; Start 12/25/24 at 08:00; Stop 01/24/25 at 07:59 Dexmedetomidine/ Sodium Chloride 400 mcg PROTOCOL IV; Start 12/25/24 at 08:00; Stop 12/26/24 at 07:59; Status DC Acetaminophen 650 mg Q6H PRN PO Last administered on 12/29/24at 08:32; Start 12/25/24 at 08:00; Stop 01/24/25 at 07:59 Ketamine HCl 500 mg STK-MED ONCE IJ; Start 12/25/24 at 08:13; Stop 12/25/24 at 08:13; Status DC Sodium Chloride 1,000 ml @ 10 mls/hr ONCE IV Last administered on 12/25/24at 12:13; Start 12/25/24 at 08:30; Stop 12/26/24 at 08:29; Status DC Sodium Chloride 10 ml Q8H PRN IVP; Start 12/25/24 at 08:30; Stop 01/24/25 at 08:29 Morphine Sulfate 0.5 mg Q2H PRN IV; Start 12/25/24 at 09:00; Stop 01/01/25 at 08:59 Morphine Sulfate 1 mg Q2H PRN IV; Start 12/25/24 at 09:00; Stop 01/01/25 at 08:59 Acetaminophen 650 mg Q4H PRN RC; Start 12/25/24 at 08:30; Stop 01/24/25 at 08:29 Ondansetron HCl 4 mg Q6H PRN IV Last administered on 12/27/24at 01:11; Start 12/25/24 at 08:30; Stop 01/24/25 at 08:29 Sodium Chloride 500 ml @ 0 mls/hr AD IV; Start 12/25/24 at 08:30; Stop 01/24/25 at 08:29 Nitroglycerin/ Dextrose 0 ml @ 0 mls/hr AD IV; Start 12/25/24 at 08:30; Stop 12/28/24 at 08:29; Status DC Propofol 100 ml @ 0 mls/hr AD PRN IV; Start 12/25/24 at 08:30; Stop 12/29/24 at 08:29; Status DC Norepinephrine Bitartrate 8 mg/ Dextrose 250 ml @ 0 mls/hr AD PRN IV; Start 12/25/24 at 08:30; Stop 12/25/24 at 08:40; Status DC Epinephrine HCl 10 mg/Sodium Chloride 250 ml @ 0 mls/hr AD PRN IV; Start 12/25/24 at 08:30; Stop 12/25/24 at 08:40; Status DC Aminocaproic Acid 31409 mg/Sodium Chloride 310 ml @ 25 mls/hr AD IV; Start 12/25/24 at 08:30; Stop 12/25/24 at 08:40; Status DC Calcium Gluconate 1 gm/Sodium Chloride 60 ml @ 200 mls/hr AD PRN IV Last administered on 12/26/24at 15:57; Start 12/25/24 at 08:30; Stop 01/24/25 at 08:29 Magnesium Sulfate 50 ml @ 12.5 mls/hr AD PRN IV Last administered on 12/25/24at 13:00; Start 12/25/24 at 08:30; Stop 01/24/25 at 08:29 Potassium Chloride 100 ml @ 100 mls/hr AD PRN IV Last administered on 12/25/24at 19:59; Start 12/25/24 at 08:30; Stop 01/24/25 at 08:29 Potassium Phosphate 250 ml @ 42 mls/hr AD PRN IV; Start 12/25/24 at 08:30; Stop 01/24/25 at 08:29 Albumin Human 250 ml @ 0 mls/hr AD PRN IV Last administered on 12/25/24at 13:21; Start 12/25/24 at 08:30; Stop 12/25/24 at 13:21; Status DC Acetaminophen 650 mg Q4H PRN PO; Start 12/25/24 at 08:30; Stop 01/24/25 at 08:29 Insulin Human Regular 100 unit/ Sodium Chloride 100 ml @ 0 mls/hr AD IV Last administered on 12/26/24at 01:05; Start 12/25/24 at 08:30; Stop 12/27/24 at 08:29; Status DC Cefazolin Sodium 2 gm Q8H IVPB Last administered on 12/26/24at 04:46; Start 12/25/24 at 13:30; Stop 12/26/24 at 05:31; Status DC Tramadol HCl 25 mg Q6H PRN PO; Start 12/25/24 at 08:30; Stop 12/30/24 at 08:29 Tramadol HCl 50 mg Q6H PRN PO Last administered on 12/27/24at 16:29; Start 12/25/24 at 08:30; Stop 12/30/24 at 08:29 Famotidine 20 mg BID IV Last administered on 12/28/24at 08:50; Start 12/25/24 at 09:00; Stop 12/28/24 at 19:10; Status DC Sodium Bicarbonate 50 meq AD PRN IV Last administered on 12/25/24at 17:46; Start 12/25/24 at 08:30; Stop 12/28/24 at 08:29; Status DC Dextrose 50 ml AD PRN IV; Start 12/25/24 at 08:30; Stop 01/24/25 at 08:29 Glucagon 1 mg AD PRN IM; Start 12/25/24 at 08:30; Stop 01/24/25 at 08:29 Papaverine HCl 60 mg STK-MED ONCE IRRIG Last administered on 12/25/24at 08:30; Start 12/25/24 at 08:30; Stop 12/25/24 at 10:08; Status DC Cefazolin Sodium 1 gm STK-MED ONCE IRRIG Last administered on 12/25/24at 08:30; Start 12/25/24 at 08:30; Stop 12/25/24 at 10:08; Status DC Cefazolin Sodium 2 gm STK-MED ONCE IVPB Last administered on 12/25/24at 08:55; Start 12/25/24 at 08:55; Stop 12/25/24 at 10:08; Status DC Vasopressin 20 units STK-MED ONCE .ROUTE; Start 12/25/24 at 10:14; Stop 12/25/24 at 10:15; Status DC Glycopyrrolate 1 mg STK-MED ONCE .ROUTE; Start 12/25/24 at 10:30; Stop 12/25/24 at 10:30; Status DC Sodium Bicarbonate 250 ml @ As Directed STK-MED ONCE .ROUTE; Start 12/25/24 at 11:09; Stop 12/25/24 at 11:10; Status DC Vasopressin 40 units/Sodium Chloride 40 ml @ 0 mls/hr PROTOCOL IV Last administered on 12/26/24at 01:07; Start 12/25/24 at 12:00; Stop 01/24/25 at 11:59 Iron Sucrose 300 mg/Sodium Chloride 250 ml @ 83 mls/hr DAILY IV Last administered on 12/28/24at 10:11; Start 12/26/24 at 10:00; Stop 12/28/24 at 12:01; Status DC Furosemide 20 mg Q12H PO Last administered on 12/29/24at 08:33; Start 12/27/24 at 09:00; Stop 12/29/24 at 08:41; Status DC Furosemide 20 mg Q8H5 IV Last administered on 12/27/24at 12:48; Start 12/26/24 at 13:00; Stop 12/27/24 at 17:48; Status DC Folic Acid 1 mg DAILY IV Last administered on 12/29/24at 08:35; Start 12/26/24 at 13:30; Stop 01/25/25 at 13:29 Thiamine HCl 300 mg DAILY IVP Last administered on 12/29/24at 08:32; Start 12/26/24 at 13:30; Stop 12/29/24 at 13:29; Status DC Artificial Tears 1 DROP OR AD Q2H PRN OU Last administered on 12/27/24at 08:13; Start 12/26/24 at 14:00; Stop 01/25/25 at 13:59 Insulin Human Regular INSULIN SLIDING SCAL... ACHS SQ; Start 12/27/24 at 11:30; Stop 01/26/25 at 11:29 Piperacillin Sod/ Tazobactam Sod 3.375 gm Q8H IVPB Last administered on 12/27/24at 17:48; Start 12/27/24 at 10:30; Stop 12/27/24 at 21:14; Status DC Sodium Chloride 50 ml AD IV; Start 12/27/24 at 10:30; Stop 12/27/24 at 10:26; Status DC Piperacillin Sod/ Tazobactam Sod 3.375 gm Q12H IVPB Last administered on 12/30/24at 05:35; Start 12/28/24 at 06:30; Stop 01/06/25 at 10:29 Ipratropium [place] 0.5 mg [id number] IH Last administered on 12/30/24at 06:34; Start 12/28/24 at 12:00; Stop 01/27/25 at 11:59 Ipratropium [place] 0.5 mg STK-MED ONCE IH; Start 12/28/24 at 10:55; Stop 12/28/24 at 10:55; Status DC Heparin Sodium (Porcine) 10,000 unit STK-MED ONCE IV; Start 12/25/24 at 11:01; Stop 12/28/24 at 11:01; Status DC Famotidine 20 mg BID PO Last administered on 12/29/24at 20:52; Start 12/28/24 at 21:00; Stop 01/27/25 at 20:59 Lidocaine HCl 5 ml ONCE ONCE IV; Start 12/28/24 at 23:30; Stop 12/28/24 at 23:35; Status DC Lidocaine HCl 5 ml ONCE ONCE IV Last administered on 12/28/24at 23:39; Start 12/28/24 at 23:45; Stop 12/28/24 at 23:46; Status DC Furosemide 20 mg Q8H5 PO; Start 12/29/24 at 09:00; Stop 12/29/24 at 09:08; Status DC Milrinone Lactate/ Dextrose 100 ml @ 0 mls/hr PROTOCOL IV Last administered on 12/29/24at 09:13; Start 12/29/24 at 09:00; Stop 12/29/24 at 14:02; Status DC Furosemide 20 mg Q8H5 IV Last administered on 12/30/24at 05:35; Start 12/29/24 at 13:00; Stop 01/28/25 at 12:59 Sodium Chloride 4 ml STK-MED ONCE IH Last administered on 12/29/24at 11:15; Start 12/29/24 at 10:59; Stop 12/29/24 at 11:00; Status DC Enoxaparin Sodium 1 unit Q12H SQ; Start 12/29/24 at 14:00; Stop 12/29/24 at 14:04; Status DC Amiodarone HCl 150 mg/Dextrose 103 ml @ 618 mls/hr ONCE IV; Start 12/29/24 at 14:00; Stop 12/29/24 at 14:04; Status DC Amiodarone HCl 360 mg/Dextrose 207.2 ml @ 33.3 mls/hr AD IV; Start 12/29/24 at 14:00; Stop 12/29/24 at 14:04; Status DC Amiodarone HCl 540 mg/Dextrose 310.8 ml @ 16.7 mls/hr [id number] IV; Start 12/29/24 at 14:00; Stop 01/28/25 at 13:59 Amiodarone HCL/ Dextrose 100 ml @ 0 mls/hr ONCE ONCE IV Last administered on 12/29/24at 14:21; Start 12/29/24 at 14:30; Stop 12/29/24 at 18:35; Status DC Amiodarone HCL/ Dextrose 200 ml @ 0 mls/hr ONCE ONCE IV Last administered on 12/29/24at 14:37; Start 12/29/24 at 14:30; Stop 12/29/24 at 18:35; Status DC Enoxaparin Sodium 110 mg Q12H SQ; Start 12/29/24 at 14:30; Stop 12/29/24 at 14:19; Status DC Enoxaparin Sodium 110 mg Q12H SQ Last administered on 12/29/24at 20:53; Start 12/29/24 at 20:00; Stop 01/28/25 at 19:59 Sodium Chloride 4 ml STK-MED ONCE IH; Start 12/29/24 at 18:35; Stop 12/29/24 at 18:35; Status DC Potassium Chloride 100 ml @ 100 mls/hr AD PRN IV; Start 12/30/24 at 08:00; Stop 12/30/24 at 08:00; Status DC Potassium Chloride 20 meq AD PRN PO; Start 12/30/24 at 08:00; Stop 01/29/25 at 07:59 Potassium Chloride 20 meq AD PRN PO; Start 12/30/24 at 08:00; Stop 01/29/25 at 07:59 WILLARD HOLDNE MD Dec 30, 2024 08:21
--- NOTE | 2024-12-30 13:23 | PN ---
[facility] PROGRESS NOTE Date Patient Seen: Dec 30, 2024 Time of Visit: 13:22 Supervising Physician: Dr Hyatt Primary Care Physician: Nahun Delarosa Outpatient Specialists: Dr Mercado (cardiology) Inpatient Consults: OG, DR Bartolo Mercado Attending physician: Dr. Dutton PROBLEM LIST: Postoperative hypoxemic respiratory failure POA Suspected Aspiration VS CAP CAD status post CABG x2 w/ GIANNA clip placement 12/25/[address] Dutton Postoperative Bradycardia Pacemaker dependent via epicardial leads, Resolved Diastolic heart failure with the EF of 30-35% PER intraoperative MAIRA Intraoperative Afib RVR cardioverted x 2 Postop pulmonary edema Postoperative acute on chronic iron-deficiency anemia, POA S/P 1 unit of PRBC Hyperglycemia with a A1c of 6.0 Electrolyte derangement (hypokalemia, hyperphosphatemia, hypomagnesemia) Cardiomyopathy Cardiomegaly Obesity BMI of 35.4 Comorbidities: Restrictive lung disease Essential hypertension Hyperlipidemia Atrial fibrillation on anticoagulation with the Eliquis last dose on 12/19/24 Iron-deficiency Chronic anemia Arthritis Hernia 60 pack yr smoker INTERVAL HISTORY: Date of admission: 12/25/24 Post CABG day: 5 Code status: Full code Extubated 12/25/24 Lines: out Nutrition: Full precautions :standard Patient is sitting comfortably at bedside chair, currently on nasal cannula 2 L, good saturations, labs and imaging has been reviewed Increased congestion on chest x-ray compared to that of yesterday, 3.2 L out in 24, continues on Lasix 20q8 IS 1200 CPAP at night Patient with his sitting at bedside updated. No acute events overnight. Afebrile Plan: Continue diuresis, following cardiology recs, follow Cardiothoracic Surgeons postop protocol PT/OT I&Os Daily labs, chest x-ray Currently on Zosyn, follow cultures Tele REVIEW OF SYSTEMS: Const: no fever, fatigue, or weight changes + fatigue Eyes: no recent vision problems ENT: No congestion, ear pain, or sore throat C/V: no chest pain, palpitations or edema _+midsternal incision tenderness. Resp: No cough, congestion, wheezing , or Shortness of breath GI: No abdominal pain, nausea, vomiting, constipation, or diarrhea : No incontinence of or dyuria M/S: No joint or pain swelling Skin: No rash Neuro: no headache, focal numbness, or weakness, dizziness or seizures Psych: no depression or anxiety Heme: no abnormal bruising or bleeding Lymph: no swollen glands PHYSICAL EXAM: GENERAL:AAOx3. recovering post CABG HEENT: Sclera non icteric, moist mucosa NECK: Supple, no JVD, trachea midline LUNGS: Coarse Ronchi breath sounds bilaterally. No wheezes. Chest tube in place draining sanguinous HEART: HR regular rate and rythm , S1 and S2 ABD: Abdomen soft, nontender. Bowel sounds present EXT: No clubbing cyanosis or edema, left leg Jackson wrap. Bilateral pulses with Doppler. NEURO: [id number] focal defecits. Vital Signs (last 8hr) Date Time Temp Pulse Resp B/P (MAP) Pulse Ox O2 Delivery O2 Flow Rate FiO2 12/30/24 11:15 97.7 60 22 134/66 95 Nasal Cannula 2.0 28 12/30/24 11:07 61 20 12/30/24 11:05 61 20 N/Cannula Low lpm 2.0 28 12/30/24 11:00 60 27 95 12/30/24 07:41 98.1 62 23 112/58 97 Nasal Cannula 2.0 28 12/30/24 06:34 63 22 12/30/24 06:33 63 22 N/Cannula Low lpm 2.0 28 12/30/24 06:00 56 24 140/75 98 LABS: Hematology Labs: Test 12/30/24 04:55 Range/Units White Blood Count 7.3 4.8-10.8 K/uL Red Blood Count 3.70 L 4.50-6.20 MIL/uL Hemoglobin 8.1 L 14.0-18.0 g/dL Hematocrit 27.1 L 42-54 % Mean Corpuscular Volume 73.2 L 79-99 fL Mean Corpuscular Hemoglobin 21.9 L 27.0-33.0 pg Mean Corpuscular Hemoglobin Concent 29.9 L 32.0-36.0 g/dL Red Cell Distribution Width 19.6 H 11.0-15.5 % Platelet Count 212 130-400 K/uL Mean Platelet Volume 9.4 7.5-10.5 fL Immature Granulocyte % (Auto) 1.1 H 0-1 % Neutrophils (%) (Auto) 67.9 40.0-77.0 % Lymphocytes (%) (Auto) 14.4 L 21.0-51.0 % Monocytes (%) (Auto) 11.3 3.0-13.0 % Eosinophils (%) (Auto) 5.0 0.0-8.0 % Basophils (%) (Auto) 0.3 0.0-5.0 % Neutrophils # (Auto) 5.0 1.8-7.7 K/uL Lymphocytes # (Auto) 1.1 1.0-4.8 K/uL Monocytes # (Auto) 0.8 0.1-1.0 K/uL Eosinophils # (Auto) 0.37 0.00-0.70 K/uL Basophils # (Auto) 0.02 0.00-0.20 K/uL Absolute Immature Granulocyte (auto 0.08 0-1 K/uL Nucleated Red Blood Cells 0.0 0.0-0.19 % Chemistry Labs: Test 12/30/24 11:18 12/30/24 04:55 12/28/24 20:00 Range/Units Whole Blood Glucose 109 70-110 MG/DL Sodium Level 140 136-145 mmol/L Potassium Level 3.8 3.5-5.1 mmol/L Chloride Level 103 101-111 mmol/L Carbon Dioxide Level 33 H 21-32 mmol/L Blood Urea Nitrogen 17 7-18 mg/dL Creatinine 1.0 0.5-1.3 mg/dL Glomerular Filtration Rate Calc 81 >90 mL/min Random Glucose 92 70-105 mg/dL Total Calcium 8.8 8.5-10.1 mg/dL Magnesium Level 1.90 1.80-2.40 mg/dL Total Bilirubin 0.5 0.2-1.0 mg/dL Aspartate Amino Transf (AST/SGOT) 30 10-37 U/L Alanine Aminotransferase (ALT/SGPT) 18 12-78 U/L Alkaline Phosphatase 69 50-136 U/L B-Type Natriuretic Peptide 893 H 0-100 pg/mL Total Protein 5.6 L 6.0-8.3 g/dL Albumin 2.3 L 3.5-5.0 g/dL Procalcitonin 0.43 0.05-0.5 ng/mL Ionized Calcium 1.19 1.15-1.33 MMOL/L Phosphorus Level 2.7 2.5-4.9 mg/dL DIAGNOSTICS / RADIOLOGY RESULTS: [ ] PLAN NEURO: Minimize central acting medications as possible. Fall Precautions. Well lighted room through the day and minimize interruptions through the night to prevent acute delirium. PULMONARY: Supplemental 02 as needed Titrate Fio2 to keep Spo2 > or = 90% DuoNebs and CPT as needed IS hourly while awake for pulmonary hygiene Out of bed to chair as tolerated CARDIOVASCULAR: Follow hemodynamics. Titrate vasopressor to keep MAP >65 or systolic blood pressure >95mmHg DRIPS: epi GI & NUTRITION: Continue nutritional support Aspirations precautions Prokinetic agents and laxatives as needed KIDNEYS & ELECTROLYTES: Strict monitoring of intake and output Daily weights Avoid nephrotoxic agents Monitor electrolytes and replace as needed Goal urine output of 30mL/hr or 0.5mL/kg/hr ENDOCRINE: Maintain blood glucose between 100-180 at all times. Insulin sliding scale for blood glucose management INFECTIOUS DISEASE: Trend temperature. Veloz-culture if febrile. Micro: MRSA Negative Antibiotics: Ancef x 3 completed Zosyn 12/27/24 L HEMATOLOGY & COAGULATION: Monitor H&H. Keep Hgb > 7 Transfuse 1 unit of PRBC for Hgb < 7 Transfuse 1 pack of platelets of platelets < 20, 000 Watch for any signs and symptoms of bleeding SKIN: Pressure ulcer prevention per facility protocol Rehab: PT/OT Prophylaxis: GI: pepcid DVT: jackson wraps per CV surgery Code Status: Full Resuscitation Disposition: ICU Other: Total patient care time exceeds 35 minutes excluding all procedures. Case was discussed and seen with my supervising physician. The above plan was formulated and agreed upon. MAYTE RUIZ Dec 30, 2024 13:23
--- NOTE | 2024-12-30 13:32 | NUR ---
[facility] ICU Skin Assessment: Patient assessed by wound healing team. Patient with no wounds or skin breakdown noted. Assessment and recommendations provided to primary nurse. Education provided. Addendum: 12/30/24 at 1437 by REJI EDWARDS RN RN/ Amended: Links added.
--- NOTE | 2024-12-30 17:36 | NUR ---
Pacing wires clipped at bedside as ordered. Patient tolerated intervention well with minimal discomfort. Access site dressed with petroleum gauze, 4x4 gauze and tegaderm. No further needs noted.
[2024-12-31] VITALS (14 sets, daily range): BP systolic 114–142; BP diastolic 53–82; PULSE 56–66; RESP 18–22; TEMP 97.6–98.5; O2SAT 96–98
[2024-12-31 04:32] LABS: IMMATURE GRANULOCYTE ABSOLUTE 0.13 K/uL (0-1); NUCLEATED RED BLOOD CELLS 0.0 % (0.0-0.19); PLATELET COUNT (AUTO) 212 K/uL (130-400); RED BLOOD CELL COUNT(AUTO) 3.82 MIL/uL (4.50-6.20); RED CELL DISTRIBUTION WIDTH 21.0 % (11.0-15.5); WHITE BLOOD COUNT (AUTO) 8.5 K/uL (4.8-10.8)
[2024-12-31 04:57] LABS: ASPARTATE AMINOTRANSFERASE 29.0 U/L (10-37); CREATININE 0.8 mg/dL (0.5-1.3); GLOMERULAR FILTR. RATE CALC 95.0 mL/min (>90); GLUCOSE,RANDOM 92.0 mg/dL (70-105); PHOSPHORUS 2.3 mg/dL (2.5-4.9); SODIUM SERUM 136.0 mmol/L (136-145); TOTAL PROTEIN, SERUM 6.0 g/dL (6.0-8.3); UREA NITROGEN, BLOOD 14.0 mg/dL (7-18)
--- NOTE | 2024-12-31 06:51 | PN ---
SUBJECTIVE: A 69-year-old, status post CABG and ligation of left atrial appendage, coursing postop day #5. OBJECTIVE: GENERAL: Awake, alert, afebrile, neurologically intact. VITAL SIGNS: Stable as recorded in the medical record. CHEST: Sternum stable, incision sealed. LUNGS: Clear. EXTREMITIES: Warm and well perfused. No evidence of DVT, hematoma, or infection. ASSESSMENT: Status post coronary artery bypass graft. * Acute respiratory insufficiency with hypoxia. The patient has been weaning from oxygen slowly. two liter nasal cannula. We will wean oxygen as tolerated. * Fluid overload. Lasix 20 mg twice a day. * Atrial fibrillation. The patient received amiodarone and then he converted to sinus bradycardia. Amiodarone has been discontinued. The patient is in sinus bradycardia at 60. * Deep venous thrombosis prophylaxis, Lovenox 30 mg once a day . PLAN: OT, PT, cardiac rehabilitation, discharge planning, transfer to telemetry. TID: [id number] RECEIPT: [id number]
--- NOTE | 2024-12-31 07:04 | HMCIMG ---
EXAM: CR Chest, single view. CLINICAL HISTORY: Status post CABG COMPARISON: Prior chest radiograph dated 29 December 2024. FINDINGS: Poststernotomy status. Moderate cardiomegaly with bilateral pulmonary congestion. Mild left-sided pleural effusion. Patchy area of groundglass opacities in the bilateral parahilar region, left more than right. Probable pulmonary edema. No evidence of pneumothorax. No acute osseous abnormality. IMPRESSION: Poststernotomy status. Moderate cardiomegaly with bilateral pulmonary congestion. Mild left-sided pleural effusion. Patchy area of groundglass opacities in the bilateral parahilar region, left more than right. Probable pulmonary edema. No evidence of pneumothorax. Compared to the prior study, there is no significant interval change. /Lamoure
--- NOTE | 2024-12-31 08:05 | PN ---
1. Multivessel coronary artery disease. 2. Status post CABG x2 with left atrial appendage ligation 12/25/2024. 3. Ischemic cardiomyopathy, EF IMPROVED FROM 30-30 5-40 5-50 POSTOPERATIVE. 4. Blood loss anemia. 5. Persistent atrial fibrillation. 6. Hypertension. 7. Hyperlipidemia. 8. Persistent atrial fibrillation. 9. History of CVA. 10. Postoperative pulmonary edema Patient feels and looks much better. He has been ambulatory without symptoms, denies dizziness or lightheadedness or shortness of breath. Dyspnea and orthopnea have resolved. Patient is pulling 1.7 L on the incentive spirometer in my presence. JVD has improved and rales have resolved. Respiratory pattern is nonlabored. Patient does not appear as fatigued and skin is dry, color normal. S1 and S2 are normal but there is a prominent rub on exam. Edema has improved. Renal indices have not changed and chest x-ray shows minimal improvement but still extensive bilateral infiltrates. Impression and plan: Improving with diuresis, further diuresis we will be helpful. Continue IV furosemide and follow BMP/BNP/magnesium/chest x-ray. Increase activity as tolerated. Vitals/Labs Vital Signs Date Time Temp Pulse Resp B/P (MAP) Pulse Ox O2 Delivery O2 Flow Rate FiO2 12/31/24 07:38 97 Nasal Cannula* 2 28 12/31/24 07:37 66 12/31/24 07:20 20 12/31/24 03:40 98.2 128/65 Laboratory Tests 12/30/24 14:09 12/30/24 20:41 12/31/24 03:42 Medications Current Medications Epinephrine HCl 10 mg/Sodium Chloride 250 ml @ 0 mls/hr AD PRN IV Last administered on 12/26/24at 01:06; Start 12/25/24 at 06:00; Stop 01/24/25 at 05:59 Norepinephrine Bitartrate 250 ml @ 0 mls/hr AD PRN IV Last administered on 12/25/24at 20:46; Start 12/25/24 at 06:00; Stop 01/24/25 at 05:59 Aminocaproic Acid 90882 mg/Sodium Chloride 480 ml @ 0 mls/hr AD PRN IV; Start 12/25/24 at 06:00; Stop 01/24/25 at 05:59 Cefazolin Sodium 1 gm STK-MED ONCE .ROUTE; Start 12/25/24 at 06:25; Stop 12/25/24 at 06:25; Status DC Heparin Sodium/ Sodium Chloride 500 ml @ As Directed STK-MED ONCE IV; Start 12/25/24 at 06:25; Stop 12/25/24 at 06:25; Status DC Papaverine HCl 60 mg STK-MED ONCE .ROUTE; Start 12/25/24 at 06:25; Stop 12/25/24 at 06:26; Status DC Cefazolin Sodium 2 gm STK-MED ONCE .ROUTE; Start 12/25/24 at 07:05; Stop 12/25/24 at 07:11; Status DC Sodium Chloride 1,000 ml @ As Directed STK-MED ONCE IV Last administered on 12/25/24at 07:26; Start 12/25/24 at 07:05; Stop 12/25/24 at 07:11; Status DC Nitroglycerin/ Dextrose 1 ml @ As Directed STK-MED ONCE .ROUTE; Start 12/25/24 at 07:29; Stop 12/25/24 at 07:34; Status DC Cardioplegic Solution 1 ml @ As Directed STK-MED ONCE IV; Start 12/25/24 at 07:48; Stop 12/25/24 at 07:48; Status DC Protamine Sulfate 250 mg STK-MED ONCE IV; Start 12/25/24 at 07:55; Stop 12/25/24 at 07:55; Status DC Lidocaine HCl 100 mg STK-MED ONCE .ROUTE; Start 12/25/24 at 07:55; Stop 12/25/24 at 07:55; Status DC Heparin Sodium (Porcine) 10,000 unit STK-MED ONCE .ROUTE; Start 12/25/24 at 07:55; Stop 12/25/24 at 07:55; Status DC Epinephrine HCl 1 mg STK-MED ONCE .ROUTE; Start 12/25/24 at 07:55; Stop 12/25/24 at 07:55; Status DC Sodium Bicarbonate 200 ml @ As Directed STK-MED ONCE .ROUTE; Start 12/25/24 at 07:55; Stop 12/25/24 at 07:55; Status DC Norepinephrine Bitartrate 4 mg STK-MED ONCE IV; Start 12/25/24 at 07:55; Stop 12/25/24 at 07:55; Status DC Propofol 200 mg STK-MED ONCE IV; Start 12/25/24 at 07:55; Stop 12/25/24 at 07:56; Status DC Fentanyl Citrate 1,000 mcg STK-MED ONCE IJ; Start 12/25/24 at 07:56; Stop 12/25/24 at 07:56; Status DC Midazolam HCl 2 mg STK-MED ONCE .ROUTE; Start 12/25/24 at 07:56; Stop 12/25/24 at 07:56; Status DC Rocuronium [place] 50 mg STK-MED ONCE .ROUTE; Start 12/25/24 at 07:56; Stop 12/25/24 at 07:56; Status DC Acetaminophen 1,000 mg Q6H6 IV Last administered on 12/26/24at 06:08; Start 12/25/24 at 12:00; Stop 12/26/24 at 11:59; Status DC Aspirin 81 mg ONCE ONCE NG; Start 12/25/24 at 12:00; Stop 12/25/24 at 12:01; Status DC Aspirin 81 mg DAILY PO Last administered on 12/30/24at 08:18; Start 12/26/24 at 09:00; Stop 01/25/25 at 08:59 Docusate Sodium 100 mg BID PO Last administered on 12/30/24at 21:09; Start 12/25/24 at 21:00; Stop 01/24/25 at 20:59 Lactulose 20 gm BID PRN PO; Start 12/25/24 at 08:00; Stop 01/24/25 at 07:59 Furosemide 20 mg Q12H PO; Start 12/27/24 at 09:00; Stop 12/26/24 at 10:17; Status DC Furosemide 20 mg Q12H IV Last administered on 12/26/24at 08:08; Start 12/26/24 at 09:00; Stop 12/26/24 at 10:49; Status DC Atorvastatin Calcium 40 mg HS PO Last administered on 12/30/24at 21:09; Start 12/25/24 at 21:00; Stop 01/24/25 at 20:59 Enoxaparin Sodium 30 mg DAILY SQ Last administered on 12/29/24at 08:34; Start 12/25/24 at 09:00; Stop 12/29/24 at 14:02; Status DC Metoprolol Tartrate 12.5 mg BID PO Last administered on 12/29/24at 20:52; Start 12/27/24 at 09:00; Stop 12/30/24 at 08:22; Status DC Magnesium Hydroxide 30 ml DAILY PRN PO; Start 12/25/24 at 08:00; Stop 01/24/25 at 07:59 Dexmedetomidine/ Sodium Chloride 400 mcg PROTOCOL IV; Start 12/25/24 at 08:00; Stop 12/26/24 at 07:59; Status DC Acetaminophen 650 mg Q6H PRN PO Last administered on 12/29/24at 08:32; Start 12/25/24 at 08:00; Stop 01/24/25 at 07:59 Ketamine HCl 500 mg STK-MED ONCE IJ; Start 12/25/24 at 08:13; Stop 12/25/24 at 08:13; Status DC Sodium Chloride 1,000 ml @ 10 mls/hr ONCE IV Last administered on 12/25/24at 12:13; Start 12/25/24 at 08:30; Stop 12/26/24 at 08:29; Status DC Sodium Chloride 10 ml Q8H PRN IVP; Start 12/25/24 at 08:30; Stop 01/24/25 at 08:29 Morphine Sulfate 0.5 mg Q2H PRN IV; Start 12/25/24 at 09:00; Stop 12/30/24 at 11:59; Status DC Morphine Sulfate 1 mg Q2H PRN IV; Start 12/25/24 at 09:00; Stop 12/30/24 at 11:59; Status DC Acetaminophen 650 mg Q4H PRN RC; Start 12/25/24 at 08:30; Stop 01/24/25 at 08:29 Ondansetron HCl 4 mg Q6H PRN IV Last administered on 12/27/24at 01:11; Start 12/25/24 at 08:30; Stop 01/24/25 at 08:29 Sodium Chloride 500 ml @ 0 mls/hr AD IV; Start 12/25/24 at 08:30; Stop 01/24/25 at 08:29 Nitroglycerin/ Dextrose 0 ml @ 0 mls/hr AD IV; Start 12/25/24 at 08:30; Stop 12/28/24 at 08:29; Status DC Propofol 100 ml @ 0 mls/hr AD PRN IV; Start 12/25/24 at 08:30; Stop 12/29/24 at 08:29; Status DC Norepinephrine Bitartrate 8 mg/ Dextrose 250 ml @ 0 mls/hr AD PRN IV; Start 12/25/24 at 08:30; Stop 12/25/24 at 08:40; Status DC Epinephrine HCl 10 mg/Sodium Chloride 250 ml @ 0 mls/hr AD PRN IV; Start 12/25/24 at 08:30; Stop 12/25/24 at 08:40; Status DC Aminocaproic Acid 44027 mg/Sodium Chloride 310 ml @ 25 mls/hr AD IV; Start 12/25/24 at 08:30; Stop 12/25/24 at 08:40; Status DC Calcium Gluconate 1 gm/Sodium Chloride 60 ml @ 200 mls/hr AD PRN IV Last administered on 12/26/24at 15:57; Start 12/25/24 at 08:30; Stop 01/24/25 at 08:29 Magnesium Sulfate 50 ml @ 12.5 mls/hr AD PRN IV Last administered on 12/30/24at 08:18; Start 12/25/24 at 08:30; Stop 01/24/25 at 08:29 Potassium Chloride 100 ml @ 100 mls/hr AD PRN IV Last administered on 12/25/24at 19:59; Start 12/25/24 at 08:30; Stop 01/24/25 at 08:29 Potassium Phosphate 250 ml @ 42 mls/hr AD PRN IV; Start 12/25/24 at 08:30; Stop 01/24/25 at 08:29 Albumin Human 250 ml @ 0 mls/hr AD PRN IV Last administered on 12/25/24at 13:21; Start 12/25/24 at 08:30; Stop 12/25/24 at 13:21; Status DC Acetaminophen 650 mg Q4H PRN PO; Start 12/25/24 at 08:30; Stop 01/24/25 at 08:29 Insulin Human Regular 100 unit/ Sodium Chloride 100 ml @ 0 mls/hr AD IV Last administered on 12/26/24at 01:05; Start 12/25/24 at 08:30; Stop 12/27/24 at 08:29; Status DC Cefazolin Sodium 2 gm Q8H IVPB Last administered on 12/26/24at 04:46; Start 12/25/24 at 13:30; Stop 12/26/24 at 05:31; Status DC Tramadol HCl 25 mg Q6H PRN PO; Start 12/25/24 at 08:30; Stop 12/30/24 at 08:29; Status DC Tramadol HCl 50 mg Q6H PRN PO Last administered on 12/27/24at 16:29; Start 12/25/24 at 08:30; Stop 12/30/24 at 08:29; Status DC Famotidine 20 mg BID IV Last administered on 12/28/24at 08:50; Start 12/25/24 at 09:00; Stop 12/28/24 at 19:10; Status DC Sodium Bicarbonate 50 meq AD PRN IV Last administered on 12/25/24at 17:46; Start 12/25/24 at 08:30; Stop 12/28/24 at 08:29; Status DC Dextrose 50 ml AD PRN IV; Start 12/25/24 at 08:30; Stop 01/24/25 at 08:29 Glucagon 1 mg AD PRN IM; Start 12/25/24 at 08:30; Stop 01/24/25 at 08:29 Papaverine HCl 60 mg STK-MED ONCE IRRIG Last administered on 12/25/24at 08:30; Start 12/25/24 at 08:30; Stop 12/25/24 at 10:08; Status DC Cefazolin Sodium 1 gm STK-MED ONCE IRRIG Last administered on 12/25/24at 08:30; Start 12/25/24 at 08:30; Stop 12/25/24 at 10:08; Status DC Cefazolin Sodium 2 gm STK-MED ONCE IVPB Last administered on 12/25/24at 08:55; Start 12/25/24 at 08:55; Stop 12/25/24 at 10:08; Status DC Vasopressin 20 units STK-MED ONCE .ROUTE; Start 12/25/24 at 10:14; Stop 12/25/24 at 10:15; Status DC Glycopyrrolate 1 mg STK-MED ONCE .ROUTE; Start 12/25/24 at 10:30; Stop 12/25/24 at 10:30; Status DC Sodium Bicarbonate 250 ml @ As Directed STK-MED ONCE .ROUTE; Start 12/25/24 at 11:09; Stop 12/25/24 at 11:10; Status DC Vasopressin 40 units/Sodium Chloride 40 ml @ 0 mls/hr PROTOCOL IV Last administered on 12/26/24at 01:07; Start 12/25/24 at 12:00; Stop 01/24/25 at 11:59 Iron Sucrose 300 mg/Sodium Chloride 250 ml @ 83 mls/hr DAILY IV Last administered on 12/28/24at 10:11; Start 12/26/24 at 10:00; Stop 12/28/24 at 12:01; Status DC Furosemide 20 mg Q12H PO Last administered on 12/29/24at 08:33; Start 12/27/24 at 09:00; Stop 12/29/24 at 08:41; Status DC Furosemide 20 mg Q8H5 IV Last administered on 12/27/24at 12:48; Start 12/26/24 at 13:00; Stop 12/27/24 at 17:48; Status DC Folic Acid 1 mg DAILY IV Last administered on 12/30/24at 08:22; Start 12/26/24 at 13:30; Stop 01/25/25 at 13:29 Thiamine HCl 300 mg DAILY IVP Last administered on 12/29/24at 08:32; Start 12/26/24 at 13:30; Stop 12/29/24 at 13:29; Status DC Artificial Tears 1 DROP OR AD Q2H PRN OU Last administered on 12/27/24at 08:13; Start 12/26/24 at 14:00; Stop 01/25/25 at 13:59 Insulin Human Regular INSULIN SLIDING SCAL... ACHS SQ; Start 12/27/24 at 11:30; Stop 01/26/25 at 11:29 Piperacillin Sod/ Tazobactam Sod 3.375 gm Q8H IVPB Last administered on 12/27/24at 17:48; Start 12/27/24 at 10:30; Stop 12/27/24 at 21:14; Status DC Sodium Chloride 50 ml AD IV; Start 12/27/24 at 10:30; Stop 12/27/24 at 10:26; Status DC Piperacillin Sod/ Tazobactam Sod 3.375 gm Q12H IVPB Last administered on 12/31/24at 06:20; Start 12/28/24 at 06:30; Stop 01/06/25 at 10:29 Ipratropium [place] 0.5 mg [id number] IH Last administered on 12/31/24at 06:41; Start 12/28/24 at 12:00; Stop 01/27/25 at 11:59 Ipratropium [place] 0.5 mg STK-MED ONCE IH; Start 12/28/24 at 10:55; Stop 12/28/24 at 10:55; Status DC Heparin Sodium (Porcine) 10,000 unit STK-MED ONCE IV; Start 12/25/24 at 11:01; Stop 12/28/24 at 11:01; Status DC Famotidine 20 mg BID PO Last administered on 12/30/24at 21:09; Start 12/28/24 at 21:00; Stop 01/27/25 at 20:59 Lidocaine HCl 5 ml ONCE ONCE IV; Start 12/28/24 at 23:30; Stop 12/28/24 at 23:35; Status DC Lidocaine HCl 5 ml ONCE ONCE IV Last administered on 12/28/24at 23:39; Start 12/28/24 at 23:45; Stop 12/28/24 at 23:46; Status DC Furosemide 20 mg Q8H5 PO; Start 12/29/24 at 09:00; Stop 12/29/24 at 09:08; Status DC Milrinone Lactate/ Dextrose 100 ml @ 0 mls/hr PROTOCOL IV Last administered on 12/29/24at 09:13; Start 12/29/24 at 09:00; Stop 12/29/24 at 14:02; Status DC Furosemide 20 mg Q8H5 IV Last administered on 12/31/24at 06:19; Start 12/29/24 at 13:00; Stop 01/28/25 at 12:59 Sodium Chloride 4 ml STK-MED ONCE IH Last administered on 12/29/24at 11:15; Start 12/29/24 at 10:59; Stop 12/29/24 at 11:00; Status DC Enoxaparin Sodium 1 unit Q12H SQ; Start 12/29/24 at 14:00; Stop 12/29/24 at 14:04; Status DC Amiodarone HCl 150 mg/Dextrose 103 ml @ 618 mls/hr ONCE IV; Start 12/29/24 at 14:00; Stop 12/29/24 at 14:04; Status DC Amiodarone HCl 360 mg/Dextrose 207.2 ml @ 33.3 mls/hr AD IV; Start 12/29/24 at 14:00; Stop 12/29/24 at 14:04; Status DC Amiodarone HCl 540 mg/Dextrose 310.8 ml @ 16.7 mls/hr [id number] IV; Start 12/29/24 at 14:00; Stop 01/28/25 at 13:59 Amiodarone HCL/ Dextrose 100 ml @ 0 mls/hr ONCE ONCE IV Last administered on 12/29/24at 14:21; Start 12/29/24 at 14:30; Stop 12/29/24 at 18:35; Status DC Amiodarone HCL/ Dextrose 200 ml @ 0 mls/hr ONCE ONCE IV Last administered on 12/29/24at 14:37; Start 12/29/24 at 14:30; Stop 12/29/24 at 18:35; Status DC Enoxaparin Sodium 110 mg Q12H SQ; Start 12/29/24 at 14:30; Stop 12/29/24 at 14:19; Status DC Enoxaparin Sodium 110 mg Q12H SQ Last administered on 12/30/24at 21:10; Start 12/29/24 at 20:00; Stop 01/28/25 at 19:59 Sodium Chloride 4 ml STK-MED ONCE IH; Start 12/29/24 at 18:35; Stop 12/29/24 at 18:35; Status DC Potassium Chloride 100 ml @ 100 mls/hr AD PRN IV; Start 12/30/24 at 08:00; Stop 12/30/24 at 08:00; Status DC Potassium Chloride 20 meq AD PRN PO; Start 12/30/24 at 08:00; Stop 01/29/25 at 07:59 Potassium Chloride 20 meq AD PRN PO Last administered on 12/31/24at 06:20; Start 12/30/24 at 08:00; Stop 01/29/25 at 07:59 WILLARD HOLDEN MD Dec 31, 2024 08:05
--- NOTE | 2024-12-31 09:57 | HMCIMG ---
CHEST 1VW REASON: PNA COMPARISON: Prior study from 12/30/2024 is available. FINDINGS: Single view of the chest was obtained. Lungs demonstrate there is patchy groundglass opacity seen bilaterally which was seen before and appears to be unchanged. There is mild left-sided pleural effusion which is also is unchanged.. There is cardiomegaly with median sternotomy with left atrial clipping.. There is no pulmonary vascular congestion. Mediastinum and bony thorax appear unremarkable. IMPRESSION: 1. Unchanged from prior study 2. Cardiomegaly with median sternotomy 3. Bilateral patchy groundglass opacity unchanged from prior study. 4. Small left-sided pleural effusion.
--- NOTE | 2024-12-31 12:06 | PN ---
[facility] PROGRESS NOTE Date Patient Seen: Dec 31, 2024 Time of Visit: 11:52 Supervising Physician: Elida Chanel Primary Care Physician: Nahun Delarosa Outpatient Specialists: Dr Mercado (cardiology) Inpatient Consults: DR Bartolo FOLEY Attending physician: Dr. Dutton Critical Care Note: PROBLEM LIST: CAD status post CABG x2 12/25/2024 Acute hypoxemic respiratory failure CAP - gram neg rods Diastolic heart failure with the EF of 30-35% Intraoperative Afib RVR cardioverted x 2 Postop pulmonary edema Postoperative acute on chronic iron-deficiency anemia Hyperglycemia with a A1c of 6.0 Electrolyte derangement (hypokalemia, hyperphosphatemia, hypomagnesemia) Obesity BMI of 35.4 Comorbidities: Restrictive lung disease Essential hypertension Hyperlipidemia Atrial fibrillation on anticoagulation with the Eliquis last dose on 12/19/24 Iron-deficiency Chronic anemia 60 pack yr smoker INTERVAL HISTORY: Patient is seen and examined, Patient is postop day 6. The echocardiogram from 12/28 revealed EF of 45-50%. He remains on Lasix 20 mg Q 8 We continue to diurese, patient had 3.2 L as of yesterday, 2 additional L in the last 24. Chest x-ray is improving. Patient on nasal cannula at 2 L with good O2 saturations Patient tolerating diet, reporting no chest pain or shortness of breath. His vital signs are stable. Patient along with his at bedside have been updated. Patient remains extremely weak and will require additional services at time of discharge. Patient remains dependent on O2, we will continue to wean. Patient may require home O2 at time of discharge along with therapy services. Plan: Continue diuresis, following cardiology recs, follow Cardiothoracic Surgeons postop protocol PT/OT I&Os Daily labs, chest x-ray Currently on Zosyn, follow cultures Tele REVIEW OF SYSTEMS: Const: no fever, fatigue, or weight changes + fatigue Eyes: no recent vision problems ENT: No congestion, ear pain, or sore throat C/V: no chest pain, palpitations or edema _+midsternal incision tenderness. Resp: No cough, congestion, wheezing , or Shortness of breath GI: No abdominal pain, nausea, vomiting, constipation, or diarrhea : No incontinence of or dyuria M/S: No joint or pain swelling Skin: No rash Neuro: no headache, focal numbness, or weakness, dizziness or seizures Psych: no depression or anxiety Heme: no abnormal bruising or bleeding Lymph: no swollen glands PHYSICAL EXAM: GENERAL:AAOx3. recovering post CABG HEENT: Sclera non icteric, moist mucosa NECK: Supple, no JVD, trachea midline LUNGS: Coarse Ronchi breath sounds bilaterally. No wheezes. Chest tube in place draining sanguinous HEART: HR regular rate and rythm , S1 and S2 ABD: Abdomen soft, nontender. Bowel sounds present EXT: No clubbing cyanosis or edema, left leg Wilfrid wrap. Bilateral pulses with Doppler. NEURO: [id number] focal defecits. Vital Signs (last 8hr) Date Time Temp Pulse Resp B/P (MAP) Pulse Ox O2 Delivery O2 Flow Rate FiO2 12/31/24 11:00 97.5 64 22 117/67 98 Nasal Cannula 2.0 12/31/24 07:38 97 Nasal Cannula* 2 28 12/31/24 07:37 66 12/31/24 07:20 62 20 N/Cannula Low lpm 2.0 28 12/31/24 07:00 97.9 60 22 128/82 98 Nasal Cannula 2.0 12/31/24 06:41 57 20 LABS: Hematology Labs: Test 12/31/24 03:42 Range/Units White Blood Count 8.5 4.8-10.8 K/uL Red Blood Count 3.82 L 4.50-6.20 MIL/uL Hemoglobin 8.4 L 14.0-18.0 g/dL Hematocrit 28.5 L 42-54 % Mean Corpuscular Volume 74.6 L 79-99 fL Mean Corpuscular Hemoglobin 22.0 L 27.0-33.0 pg Mean Corpuscular Hemoglobin Concent 29.5 L 32.0-36.0 g/dL Red Cell Distribution Width 21.0 H 11.0-15.5 % Platelet Count 212 130-400 K/uL Mean Platelet Volume 9.6 7.5-10.5 fL Immature Granulocyte % (Auto) 1.5 H 0-1 % Neutrophils (%) (Auto) 73.2 40.0-77.0 % Lymphocytes (%) (Auto) 11.2 L 21.0-51.0 % Monocytes (%) (Auto) 9.8 3.0-13.0 % Eosinophils (%) (Auto) 4.1 0.0-8.0 % Basophils (%) (Auto) 0.2 0.0-5.0 % Neutrophils # (Auto) 6.2 1.8-7.7 K/uL Lymphocytes # (Auto) 1.0 1.0-4.8 K/uL Monocytes # (Auto) 0.8 0.1-1.0 K/uL Eosinophils # (Auto) 0.35 0.00-0.70 K/uL Basophils # (Auto) 0.02 0.00-0.20 K/uL Absolute Immature Granulocyte (auto 0.13 0-1 K/uL Nucleated Red Blood Cells 0.0 0.0-0.19 % Chemistry Labs: Test 12/31/24 11:03 12/31/24 03:42 12/30/24 04:55 Range/Units Whole Blood Glucose 116 H 70-110 MG/DL Bedside Glucose Comment Notified Nurse Sodium Level 136 136-145 mmol/L Potassium Level 3.6 3.5-5.1 mmol/L Chloride Level 100 L 101-111 mmol/L Carbon Dioxide Level 28 21-32 mmol/L Blood Urea Nitrogen 14 7-18 mg/dL Creatinine 0.8 0.5-1.3 mg/dL Glomerular Filtration Rate Calc 95 >90 mL/min Random Glucose 92 70-105 mg/dL Total Calcium 8.9 8.5-10.1 mg/dL Phosphorus Level 2.3 L 2.5-4.9 mg/dL Magnesium Level 1.90 1.80-2.40 mg/dL Total Bilirubin 0.7 # 0.2-1.0 mg/dL Aspartate Amino Transf (AST/SGOT) 29 10-37 U/L Alanine Aminotransferase (ALT/SGPT) 16 12-78 U/L Alkaline Phosphatase 82 50-136 U/L Total Protein 6.0 6.0-8.3 g/dL Albumin 2.4 L 3.5-5.0 g/dL B-Type Natriuretic Peptide 893 H 0-100 pg/mL Procalcitonin 0.43 0.05-0.5 ng/mL DIAGNOSTICS / RADIOLOGY RESULTS: [ ] PLAN NEURO: Minimize central acting medications as possible. Maintain fall precautions, adequate lighting during the day PULMONARY: Supplemental 02 as needed. Maintain aspiration precautions at all times CARDIOVASCULAR: Follow hemodynamics. Vital signs per facility protocol GI & NUTRITION: Continue with nutritional support. Continue stool softeners and laxatives as needed. KIDNEYS & ELECTROLYTES: Strict monitoring of intake, output and overall fluid balance. Avoid nephrotoxic medications to the extent possible. Medications to be dosed according to renal function. Monitor electrolytes and replace as needed ENDOCRINE: Maintain blood glucose between 100-180 at all times. Hypoglycemia protocol in place INFECTIOUS DISEASE: Trend temperature, WBC and procalcitonin level Follow cultures, deescalate antibiotics as soon as possible. Panculture if new onset fever ONCOLOGY/HEMATOLOGY/COAGULATION: Monitor for s/s of bleeding Monitor hemoglobin, coagulation studies as needed SKIN: Pressure ulcer prevention per facility protocol Specialty mattress ORTHO/REHAB: Continue PT/OT Prophylaxis: Continue GI and DVT prophylaxis Code Status: Full Resuscitation Disposition: TBD Other: Total patient Critical Care care exceeds 38 minutes excluding all procedures. MAYTE RUIZ Dec 31, 2024 12:06 CHELA MORENO MD Jan 01, 2025 07:14
--- NOTE | 2024-12-31 21:51 | PN ---
SUBJECTIVE: A 69-year-old gentleman status post CABG and appendage ligation. Coursing postoperative day #5. OBJECTIVE: GENERAL: Awake, alert, and afebrile. Neurologically intact. VITAL SIGNS: Stable as recorded in the medical record. CHEST: Sternum stable, incision sealed. LUNGS: Clear. EXTREMITIES: Warm and well perfused. No evidence of DVT, hematoma or infection. ASSESSMENT: Status post CABG. PROBLEMS: * Coronary artery disease. Aspirin 81 mg, metoprolol 25 mg twice a day. * Fluid overload. Lasix 20 mg twice a day. * Bradyarrhythmia. Off amiodarone. * Atrial fibrillation. The patient underwent a lowering dose of amiodarone and was discontinued due to bradycardia. He is continuously in sinus rhythm. * Disposition: PT, OT, cardiac rehab, and transfer to SNF. TID: [id number] RECEIPT: [id number]
[2025-01-01] VITALS (15 sets, daily range): BP systolic 112–136; BP diastolic 55–75; PULSE 58–82; RESP 16–20; TEMP 97.6–98.4; O2SAT 85–99
[2025-01-01 05:19] LABS: IMMATURE GRANULOCYTE ABSOLUTE 0.11 K/uL (0-1); NUCLEATED RED BLOOD CELLS 0.0 % (0.0-0.19); PLATELET COUNT (AUTO) 225 K/uL (130-400); RED BLOOD CELL COUNT(AUTO) 3.76 MIL/uL (4.50-6.20); RED CELL DISTRIBUTION WIDTH 21.5 % (11.0-15.5); WHITE BLOOD COUNT (AUTO) 9.1 K/uL (4.8-10.8)
[2025-01-01 05:51] LABS: ASPARTATE AMINOTRANSFERASE 27.0 U/L (10-37); CREATININE 0.8 mg/dL (0.5-1.3); GLOMERULAR FILTR. RATE CALC 95.0 mL/min (>90); GLUCOSE,RANDOM 96.0 mg/dL (70-105); SODIUM SERUM 135.0 mmol/L (136-145); TOTAL PROTEIN, SERUM 6.0 g/dL (6.0-8.3); UREA NITROGEN, BLOOD 12.0 mg/dL (7-18)
--- NOTE | 2025-01-01 10:22 | HMCIMG ---
CHEST 1VW REASON: pna COMPARISON: Chest radiograph from 12/31/2024 is available. FINDINGS: Single view chest demonstrate cardiomegaly with median sternotomy with the distal pulmonary edema. There are patchy bilateral perihilar groundglass opacities which was seen before.. The bony thorax demonstrate no gross of a mild degree. IMPRESSION: 1. Cardiomegaly with median sternotomy with interstitial pulmonary edema 2. Unchanged from prior study..
--- NOTE | 2025-01-01 10:49 | PN ---
[facility] PROGRESS NOTE Date Patient Seen: Jan 01, 2025 Time of Visit: 10:47 Supervising Physician: Dr Chanel Primary Care Physician: Nahun Delarosa Outpatient Specialists: Dr Mercado (cardiology) Inpatient Consults: DR Bartolo FOLEY Attending physician: Dr. Dutton Critical Care Note: PROBLEM LIST: CAD status post CABG x2 12/25/2024 Acute hypoxemic respiratory failure CAP - gram neg rods Diastolic heart failure with the EF of 30-35% Intraoperative Afib RVR cardioverted x 2 Postop pulmonary edema Postoperative acute on chronic iron-deficiency anemia Hyperglycemia with a A1c of 6.0 Electrolyte derangement (hypokalemia, hyperphosphatemia, hypomagnesemia) Obesity BMI of 35.4 Comorbidities: Restrictive lung disease Essential hypertension Hyperlipidemia Atrial fibrillation on anticoagulation with the Eliquis last dose on 12/19/24 Iron-deficiency Chronic anemia 60 pack yr smoker INTERVAL HISTORY: Patient seen and examined, patient is sitting comfortably at bedside chair. First day that he is on room air. He tolerated the CPAP overnight. Tolerating breakfast Patient's is sitting at bedside. Patient reporting no chest pain or shortness of breath. His vital signs are stable. He is afebrile. Patient ambulated but requires O2. Discussion with case management for home O2 Chest x-ray improving, continues on Lasix, now switched to oral, urine output 700 overnight Plan: Continue diuresis, following cardiology recs, follow [facility] Sur[facility] postop protocol PT/OT I&Os Daily labs, chest x-ray Currently on Zosyn, follow cultures Tele Case management is assisting with discharge planning, patient will require home health along with home O2 as he failed his ambulation REVIEW OF SYSTEMS: Const: no fever, fatigue, or weight changes + fatigue Eyes: no recent vision problems ENT: No congestion, ear pain, or sore throat C/V: no chest pain, palpitations or edema _+midsternal incision tenderness. Resp: No cough, congestion, wheezing , or Shortness of breath GI: No abdominal pain, nausea, vomiting, constipation, or diarrhea : No incontinence of or dyuria M/S: No joint or pain swelling Skin: No rash Neuro: no headache, focal numbness, or weakness, dizziness or seizures Psych: no depression or anxiety Heme: no abnormal bruising or bleeding Lymph: no swollen glands PHYSICAL EXAM: GENERAL:AAOx3. recovering post CABG HEENT: Sclera non icteric, moist mucosa NECK: Supple, no JVD, trachea midline LUNGS: Coarse Ronchi breath sounds bilaterally. No wheezes. Chest tube in place draining sanguinous HEART: HR regular rate and rythm , S1 and S2 ABD: Abdomen soft, nontender. Bowel sounds present EXT: No clubbing cyanosis or edema, left leg Wilfrid wrap. Bilateral pulses with Doppler. NEURO: [id number] focal defecits. Vital Signs (last 8hr) Date Time Temp Pulse Resp B/P (MAP) Pulse Ox O2 Delivery O2 Flow Rate FiO2 01/01/25 10:37 65 19 21 72 19 21 75 18 28 01/01/25 10:30 95 Nasal Cannula 2.0 01/01/25 10:25 85 Room Air 01/01/25 10:16 94 Room Air 01/01/25 08:39 98.2 63 16 125/67 98 Nasal Cannula 2.0 01/01/25 07:48 68 18 N/Cannula Low lpm 2.0 28 01/01/25 07:48 68 20 01/01/25 03:38 98.4 58 20 136/75 98 Nasal Cannula 2.0 LABS: Hematology Labs: Test 01/01/25 04:22 Range/Units White Blood Count 9.1 4.8-10.8 K/uL Red Blood Count 3.76 L 4.50-6.20 MIL/uL Hemoglobin 8.3 L 14.0-18.0 g/dL Hematocrit 28.3 L 42-54 % Mean Corpuscular Volume 75.3 L 79-99 fL Mean Corpuscular Hemoglobin 22.1 L 27.0-33.0 pg Mean Corpuscular Hemoglobin Concent 29.3 L 32.0-36.0 g/dL Red Cell Distribution Width 21.5 H 11.0-15.5 % Platelet Count 225 130-400 K/uL Mean Platelet Volume 9.8 7.5-10.5 fL Immature Granulocyte % (Auto) 1.2 H 0-1 % Neutrophils (%) (Auto) 72.8 40.0-77.0 % Lymphocytes (%) (Auto) 11.7 L 21.0-51.0 % Monocytes (%) (Auto) 9.6 3.0-13.0 % Eosinophils (%) (Auto) 4.5 0.0-8.0 % Basophils (%) (Auto) 0.2 0.0-5.0 % Neutrophils # (Auto) 6.6 1.8-7.7 K/uL Lymphocytes # (Auto) 1.1 1.0-4.8 K/uL Monocytes # (Auto) 0.9 0.1-1.0 K/uL Eosinophils # (Auto) 0.41 0.00-0.70 K/uL Basophils # (Auto) 0.02 0.00-0.20 K/uL Absolute Immature Granulocyte (auto 0.11 0-1 K/uL Nucleated Red Blood Cells 0.0 0.0-0.19 % Red Blood Cell Morphology See comments Chemistry Labs: Test 01/01/25 05:23 01/01/25 04:22 12/31/24 11:03 12/31/24 03:42 Range/Units Whole Blood Glucose 91 70-110 MG/DL Sodium Level 135 L 136-145 mmol/L Potassium Level 3.5 3.5-5.1 mmol/L Chloride Level 100 L 101-111 mmol/L Carbon Dioxide Level 30 21-32 mmol/L Blood Urea Nitrogen 12 7-18 mg/dL Creatinine 0.8 0.5-1.3 mg/dL Glomerular Filtration Rate Calc 95 >90 mL/min Random Glucose 96 70-105 mg/dL Total Calcium 9.3 8.5-10.1 mg/dL Magnesium Level 1.80 1.80-2.40 mg/dL Total Bilirubin 0.7 0.2-1.0 mg/dL Aspartate Amino Transf (AST/SGOT) 27 10-37 U/L Alanine Aminotransferase (ALT/SGPT) 21 12-78 U/L Alkaline Phosphatase 85 50-136 U/L B-Type Natriuretic Peptide 693 H 0-100 pg/mL Total Protein 6.0 6.0-8.3 g/dL Albumin 2.5 L 3.5-5.0 g/dL Bedside Glucose Comment Notified Nurse Phosphorus Level 2.3 L 2.5-4.9 mg/dL DIAGNOSTICS / RADIOLOGY RESULTS: [ ] PLAN NEURO: Minimize central acting medications as possible. Fall Precautions. Well lighted room through the day and minimize interruptions through the night to prevent acute delirium. PULMONARY: Supplemental 02 as needed Titrate Fio2 to keep Spo2 > or = 90% DuoNebs and CPT as needed IS hourly while awake for pulmonary hygiene Out of bed to chair as tolerated CARDIOVASCULAR: Follow hemodynamics. Titrate vasopressor to keep MAP >65 or systolic blood pressure >95mmHg DRIPS: epi GI & NUTRITION: Continue nutritional support Aspirations precautions Prokinetic agents and laxatives as needed KIDNEYS & ELECTROLYTES: Strict monitoring of intake and output Daily weights Avoid nephrotoxic agents Monitor electrolytes and replace as needed Goal urine output of 30mL/hr or 0.5mL/kg/hr ENDOCRINE: Maintain blood glucose between 100-180 at all times. Insulin sliding scale for blood glucose management INFECTIOUS DISEASE: Trend temperature. Veloz-culture if febrile. Micro: MRSA Negative Antibiotics: Ancef x 3 completed Zosyn 12/27/24 L HEMATOLOGY & COAGULATION: Monitor H&H. Keep Hgb > 7 Transfuse 1 unit of PRBC for Hgb < 7 Transfuse 1 pack of platelets of platelets < 20, 000 Watch for any signs and symptoms of bleeding SKIN: Pressure ulcer prevention per facility protocol Rehab: PT/OT Prophylaxis: GI: pepcid DVT: wilfrid wraps per CV surgery Code Status: Full Resuscitation Disposition: ICU Other: Total patient care time exceeds 44 minutes excluding all procedures. Case was discussed and seen with my supervising physician. The above plan was formulated and agreed upon. MAYTE RUIZ Jan 01, 2025 10:49
--- NOTE | 2025-01-01 18:20 | PN ---
1. Multivessel coronary artery disease. 2. Status post CABG x2 with left atrial appendage ligation 12/25/2024. 3. Ischemic cardiomyopathy, EF IMPROVED FROM 30-30 5-40 5-50 POSTOPERATIVE. 4. Blood loss anemia. 5. Persistent atrial fibrillation. 6. Hypertension. 7. Hyperlipidemia. 8. Persistent atrial fibrillation. 9. History of CVA. 10. Postoperative pulmonary edema Patient is eager to go home but still somewhat short of breath. Physical exam shows crepitant rales 2/[address] up both sides of the chest. In straight ERs noted. S1 and S2 are preserved. Dr. Dutton points out that he has ligated the left atrial appendage and so I agree we do not require anticoagulation for AFib. Chest x-ray still shows florid pulmonary edema on both sides all the way to the apices, BNP remains in the mid 600 range, and the BUN/creatinine ratio has not been touched by diuresis so far. Further, intake and output records have not been accurately kept; note the significant variation over the last three days while treatment has been constant. This patient remains in florid pulmonary edema and by no stretch of the imagination is he ready for discharge. He is also not ready to convert to oral diuretics, and in fact I am increasing the IV diuretics. Cardiology will manage heart failure for this patient until he is ready to discharge, and we will indicate in the chart when that time arrives. Vitals/Labs Vital Signs Date Time Temp Pulse Resp B/P (MAP) Pulse Ox O2 Delivery O2 Flow Rate FiO2 01/01/25 16:31 98.4 60 16 131/64 97 Nasal Cannula 2.0 01/01/25 10:37 21 21 28 Laboratory Tests 01/01/25 04:22 Medications Current Medications Epinephrine HCl 10 mg/Sodium Chloride 250 ml @ 0 mls/hr AD PRN IV Last administered on 12/26/24at 01:06; Start 12/25/24 at 06:00; Stop 01/01/25 at 07:31; Status DC Norepinephrine Bitartrate 250 ml @ 0 mls/hr AD PRN IV Last administered on 12/25/24at 20:46; Start 12/25/24 at 06:00; Stop 01/01/25 at 07:31; Status DC Aminocaproic Acid 75336 mg/Sodium Chloride 480 ml @ 0 mls/hr AD PRN IV; Start 12/25/24 at 06:00; Stop 01/01/25 at 07:31; Status DC Cefazolin Sodium 1 gm STK-MED ONCE .ROUTE; Start 12/25/24 at 06:25; Stop 12/25/24 at 06:25; Status DC Heparin Sodium/ Sodium Chloride 500 ml @ As Directed STK-MED ONCE IV; Start 12/25/24 at 06:25; Stop 12/25/24 at 06:25; Status DC Papaverine HCl 60 mg STK-MED ONCE .ROUTE; Start 12/25/24 at 06:25; Stop 12/25/24 at 06:26; Status DC Cefazolin Sodium 2 gm STK-MED ONCE .ROUTE; Start 12/25/24 at 07:05; Stop 12/25/24 at 07:11; Status DC Sodium Chloride 1,000 ml @ As Directed STK-MED ONCE IV Last administered on 12/25/24at 07:26; Start 12/25/24 at 07:05; Stop 12/25/24 at 07:11; Status DC Nitroglycerin/ Dextrose 1 ml @ As Directed STK-MED ONCE .ROUTE; Start 12/25/24 at 07:29; Stop 12/25/24 at 07:34; Status DC Cardioplegic Solution 1 ml @ As Directed STK-MED ONCE IV; Start 12/25/24 at 07:48; Stop 12/25/24 at 07:48; Status DC Protamine Sulfate 250 mg STK-MED ONCE IV; Start 12/25/24 at 07:55; Stop 12/25/24 at 07:55; Status DC Lidocaine HCl 100 mg STK-MED ONCE .ROUTE; Start 12/25/24 at 07:55; Stop 12/25/24 at 07:55; Status DC Heparin Sodium (Porcine) 10,000 unit STK-MED ONCE .ROUTE; Start 12/25/24 at 07:55; Stop 12/25/24 at 07:55; Status DC Epinephrine HCl 1 mg STK-MED ONCE .ROUTE; Start 12/25/24 at 07:55; Stop 12/25/24 at 07:55; Status DC Sodium Bicarbonate 200 ml @ As Directed STK-MED ONCE .ROUTE; Start 12/25/24 at 07:55; Stop 12/25/24 at 07:55; Status DC Norepinephrine Bitartrate 4 mg STK-MED ONCE IV; Start 12/25/24 at 07:55; Stop 12/25/24 at 07:55; Status DC Propofol 200 mg STK-MED ONCE IV; Start 12/25/24 at 07:55; Stop 12/25/24 at 07:56; Status DC Fentanyl Citrate 1,000 mcg STK-MED ONCE IJ; Start 12/25/24 at 07:56; Stop 12/25/24 at 07:56; Status DC Midazolam HCl 2 mg STK-MED ONCE .ROUTE; Start 12/25/24 at 07:56; Stop 12/25/24 at 07:56; Status DC Rocuronium [place] 50 mg STK-MED ONCE .ROUTE; Start 12/25/24 at 07:56; Stop 12/25/24 at 07:56; Status DC Acetaminophen 1,000 mg Q6H6 IV Last administered on 12/26/24at 06:08; Start 12/25/24 at 12:00; Stop 12/26/24 at 11:59; Status DC Aspirin 81 mg ONCE ONCE NG; Start 12/25/24 at 12:00; Stop 12/25/24 at 12:01; Status DC Aspirin 81 mg DAILY PO Last administered on 01/01/25at 08:34; Start 12/26/24 at 09:00; Stop 01/25/25 at 08:59 Docusate Sodium 100 mg BID PO Last administered on 01/01/25at 08:33; Start 12/25/24 at 21:00; Stop 01/24/25 at 20:59 Lactulose 20 gm BID PRN PO; Start 12/25/24 at 08:00; Stop 01/24/25 at 07:59 Furosemide 20 mg Q12H PO; Start 12/27/24 at 09:00; Stop 12/26/24 at 10:17; Status DC Furosemide 20 mg Q12H IV Last administered on 12/26/24at 08:08; Start 12/26/24 at 09:00; Stop 12/26/24 at 10:49; Status DC Atorvastatin Calcium 40 mg HS PO Last administered on 12/31/24at 21:38; Start 12/25/24 at 21:00; Stop 01/24/25 at 20:59 Enoxaparin Sodium 30 mg DAILY SQ Last administered on 12/29/24at 08:34; Start 12/25/24 at 09:00; Stop 12/29/24 at 14:02; Status DC Metoprolol Tartrate 12.5 mg BID PO Last administered on 12/29/24at 20:52; Start 12/27/24 at 09:00; Stop 12/30/24 at 08:22; Status DC Magnesium Hydroxide 30 ml DAILY PRN PO; Start 12/25/24 at 08:00; Stop 01/24/25 at 07:59 Dexmedetomidine/ Sodium Chloride 400 mcg PROTOCOL IV; Start 12/25/24 at 08:00; Stop 12/26/24 at 07:59; Status DC Acetaminophen 650 mg Q6H PRN PO Last administered on 01/01/25at 06:15; Start 12/25/24 at 08:00; Stop 01/24/25 at 07:59 Ketamine HCl 500 mg STK-MED ONCE IJ; Start 12/25/24 at 08:13; Stop 12/25/24 at 08:13; Status DC Sodium Chloride 1,000 ml @ 10 mls/hr ONCE IV Last administered on 12/25/24at 12:13; Start 12/25/24 at 08:30; Stop 12/26/24 at 08:29; Status DC Sodium Chloride 10 ml Q8H PRN IVP; Start 12/25/24 at 08:30; Stop 01/24/25 at 08:29 Morphine Sulfate 0.5 mg Q2H PRN IV; Start 12/25/24 at 09:00; Stop 12/30/24 at 11:59; Status DC Morphine Sulfate 1 mg Q2H PRN IV; Start 12/25/24 at 09:00; Stop 12/30/24 at 11:59; Status DC Acetaminophen 650 mg Q4H PRN RC; Start 12/25/24 at 08:30; Stop 01/24/25 at 08:29 Ondansetron HCl 4 mg Q6H PRN IV Last administered on 12/27/24at 01:11; Start 12/25/24 at 08:30; Stop 01/24/25 at 08:29 Sodium Chloride 500 ml @ 0 mls/hr AD IV; Start 12/25/24 at 08:30; Stop 01/24/25 at 08:29 Nitroglycerin/ Dextrose 0 ml @ 0 mls/hr AD IV; Start 12/25/24 at 08:30; Stop 12/28/24 at 08:29; Status DC Propofol 100 ml @ 0 mls/hr AD PRN IV; Start 12/25/24 at 08:30; Stop 12/29/24 at 08:29; Status DC Norepinephrine Bitartrate 8 mg/ Dextrose 250 ml @ 0 mls/hr AD PRN IV; Start 12/25/24 at 08:30; Stop 12/25/24 at 08:40; Status DC Epinephrine HCl 10 mg/Sodium Chloride 250 ml @ 0 mls/hr AD PRN IV; Start 12/25/24 at 08:30; Stop 12/25/24 at 08:40; Status DC Aminocaproic Acid 52214 mg/Sodium Chloride 310 ml @ 25 mls/hr AD IV; Start 12/25/24 at 08:30; Stop 12/25/24 at 08:40; Status DC Calcium Gluconate 1 gm/Sodium Chloride 60 ml @ 200 mls/hr AD PRN IV Last administered on 12/26/24at 15:57; Start 12/25/24 at 08:30; Stop 01/24/25 at 08:29 Magnesium Sulfate 50 ml @ 12.5 mls/hr AD PRN IV Last administered on 01/01/25at 08:33; Start 12/25/24 at 08:30; Stop 01/24/25 at 08:29 Potassium Chloride 100 ml @ 100 mls/hr AD PRN IV Last administered on 12/25/24at 19:59; Start 12/25/24 at 08:30; Stop 01/24/25 at 08:29 Potassium Phosphate 250 ml @ 42 mls/hr AD PRN IV; Start 12/25/24 at 08:30; Stop 01/24/25 at 08:29 Albumin Human 250 ml @ 0 mls/hr AD PRN IV Last administered on 12/25/24at 13:21; Start 12/25/24 at 08:30; Stop 12/25/24 at 13:21; Status DC Acetaminophen 650 mg Q4H PRN PO; Start 12/25/24 at 08:30; Stop 01/24/25 at 08:29 Insulin Human Regular 100 unit/ Sodium Chloride 100 ml @ 0 mls/hr AD IV Last administered on 12/26/24at 01:05; Start 12/25/24 at 08:30; Stop 12/27/24 at 08:29; Status DC Cefazolin Sodium 2 gm Q8H IVPB Last administered on 12/26/24at 04:46; Start 12/25/24 at 13:30; Stop 12/26/24 at 05:31; Status DC Tramadol HCl 25 mg Q6H PRN PO; Start 12/25/24 at 08:30; Stop 12/30/24 at 08:29; Status DC Tramadol HCl 50 mg Q6H PRN PO Last administered on 12/27/24at 16:29; Start 12/25/24 at 08:30; Stop 12/30/24 at 08:29; Status DC Famotidine 20 mg BID IV Last administered on 12/28/24at 08:50; Start 12/25/24 at 09:00; Stop 12/28/24 at 19:10; Status DC Sodium Bicarbonate 50 meq AD PRN IV Last administered on 12/25/24at 17:46; Start 12/25/24 at 08:30; Stop 12/28/24 at 08:29; Status DC Dextrose 50 ml AD PRN IV; Start 12/25/24 at 08:30; Stop 01/24/25 at 08:29 Glucagon 1 mg AD PRN IM; Start 12/25/24 at 08:30; Stop 01/24/25 at 08:29 Papaverine HCl 60 mg STK-MED ONCE IRRIG Last administered on 12/25/24at 08:30; Start 12/25/24 at 08:30; Stop 12/25/24 at 10:08; Status DC Cefazolin Sodium 1 gm STK-MED ONCE IRRIG Last administered on 12/25/24at 08:30; Start 12/25/24 at 08:30; Stop 12/25/24 at 10:08; Status DC Cefazolin Sodium 2 gm STK-MED ONCE IVPB Last administered on 12/25/24at 08:55; Start 12/25/24 at 08:55; Stop 12/25/24 at 10:08; Status DC Vasopressin 20 units STK-MED ONCE .ROUTE; Start 12/25/24 at 10:14; Stop 12/25/24 at 10:15; Status DC Glycopyrrolate 1 mg STK-MED ONCE .ROUTE; Start 12/25/24 at 10:30; Stop 12/25/24 at 10:30; Status DC Sodium Bicarbonate 250 ml @ As Directed STK-MED ONCE .ROUTE; Start 12/25/24 at 11:09; Stop 12/25/24 at 11:10; Status DC Vasopressin 40 units/Sodium Chloride 40 ml @ 0 mls/hr PROTOCOL IV Last administered on 12/26/24at 01:07; Start 12/25/24 at 12:00; Stop 01/01/25 at 07:31; Status DC Iron Sucrose 300 mg/Sodium Chloride 250 ml @ 83 mls/hr DAILY IV Last administered on 12/28/24at 10:11; Start 12/26/24 at 10:00; Stop 12/28/24 at 12:01; Status DC Furosemide 20 mg Q12H PO Last administered on 12/29/24at 08:33; Start 12/27/24 at 09:00; Stop 12/29/24 at 08:41; Status DC Furosemide 20 mg Q8H5 IV Last administered on 12/27/24at 12:48; Start 12/26/24 at 13:00; Stop 12/27/24 at 17:48; Status DC Folic Acid 1 mg DAILY IV Last administered on 12/31/24at 09:43; Start 12/26/24 at 13:30; Stop 01/01/25 at 09:07; Status DC Thiamine HCl 300 mg DAILY IVP Last administered on 12/29/24at 08:32; Start 12/26/24 at 13:30; Stop 12/29/24 at 13:29; Status DC Artificial Tears 1 DROP OR AD Q2H PRN OU Last administered on 12/27/24at 08:13; Start 12/26/24 at 14:00; Stop 01/25/25 at 13:59 Insulin Human Regular INSULIN SLIDING SCAL... ACHS SQ; Start 12/27/24 at 11:30; Stop 01/26/25 at 11:29 Piperacillin Sod/ Tazobactam Sod 3.375 gm Q8H IVPB Last administered on 12/27/24at 17:48; Start 12/27/24 at 10:30; Stop 12/27/24 at 21:14; Status DC Sodium Chloride 50 ml AD IV; Start 12/27/24 at 10:30; Stop 12/27/24 at 10:26; Status DC Piperacillin Sod/ Tazobactam Sod 3.375 gm Q12H IVPB Last administered on 01/01/25at 06:16; Start 12/28/24 at 06:30; Stop 01/06/25 at 10:29 Ipratropium [place] 0.5 mg [id number] IH Last administered on 01/01/25at 11:04; Start 12/28/24 at 12:00; Stop 01/27/25 at 11:59 Ipratropium [place] 0.5 mg STK-MED ONCE IH; Start 12/28/24 at 10:55; Stop 12/28/24 at 10:55; Status DC Heparin Sodium (Porcine) 10,000 unit STK-MED ONCE IV; Start 12/25/24 at 11:01; Stop 12/28/24 at 11:01; Status DC Famotidine 20 mg BID PO Last administered on 01/01/25at 08:33; Start 12/28/24 at 21:00; Stop 01/27/25 at 20:59 Lidocaine HCl 5 ml ONCE ONCE IV; Start 12/28/24 at 23:30; Stop 12/28/24 at 23:35; Status DC Lidocaine HCl 5 ml ONCE ONCE IV Last administered on 12/28/24at 23:39; Start 12/28/24 at 23:45; Stop 12/28/24 at 23:46; Status DC Furosemide 20 mg Q8H5 PO; Start 12/29/24 at 09:00; Stop 12/29/24 at 09:08; Status DC Milrinone Lactate/ Dextrose 100 ml @ 0 mls/hr PROTOCOL IV Last administered on 12/29/24at 09:13; Start 12/29/24 at 09:00; Stop 12/29/24 at 14:02; Status DC Furosemide 20 mg Q8H5 IV Last administered on 01/01/25at 05:10; Start 12/29/24 at 13:00; Stop 01/01/25 at 10:34; Status DC Sodium Chloride 4 ml STK-MED ONCE IH Last administered on 12/29/24at 11:15; Start 12/29/24 at 10:59; Stop 12/29/24 at 11:00; Status DC Enoxaparin Sodium 1 unit Q12H SQ; Start 12/29/24 at 14:00; Stop 12/29/24 at 14:04; Status DC Amiodarone HCl 150 mg/Dextrose 103 ml @ 618 mls/hr ONCE IV; Start 12/29/24 at 14:00; Stop 12/29/24 at 14:04; Status DC Amiodarone HCl 360 mg/Dextrose 207.2 ml @ 33.3 mls/hr AD IV; Start 12/29/24 at 14:00; Stop 12/29/24 at 14:04; Status DC Amiodarone HCl 540 mg/Dextrose 310.8 ml @ 16.7 mls/hr [id number] IV; Start 12/29/24 at 14:00; Stop 01/01/25 at 07:31; Status DC Amiodarone HCL/ Dextrose 100 ml @ 0 mls/hr ONCE ONCE IV Last administered on 12/29/24at 14:21; Start 12/29/24 at 14:30; Stop 12/29/24 at 18:35; Status DC Amiodarone HCL/ Dextrose 200 ml @ 0 mls/hr ONCE ONCE IV Last administered on 12/29/24at 14:37; Start 12/29/24 at 14:30; Stop 12/29/24 at 18:35; Status DC Enoxaparin Sodium 110 mg Q12H SQ; Start 12/29/24 at 14:30; Stop 12/29/24 at 14:19; Status DC Enoxaparin Sodium 110 mg Q12H SQ Last administered on 01/01/25at 08:33; Start 12/29/24 at 20:00; Stop 01/01/25 at 10:34; Status DC Sodium Chloride 4 ml STK-MED ONCE IH; Start 12/29/24 at 18:35; Stop 12/29/24 at 18:35; Status DC Potassium Chloride 100 ml @ 100 mls/hr AD PRN IV; Start 12/30/24 at 08:00; Stop 12/30/24 at 08:00; Status DC Potassium Chloride 20 meq AD PRN PO; Start 12/30/24 at 08:00; Stop 01/29/25 at 07:59 Potassium Chloride 20 meq AD PRN PO Last administered on 01/01/25at 08:32; Start 12/30/24 at 08:00; Stop 01/29/25 at 07:59 Folic Acid 1 mg DAILY PO; Start 01/02/25 at 09:00; Stop 02/01/25 at 08:59 Furosemide 20 mg BID@09,17 PO; Start 01/01/25 at 17:00; Stop 01/01/25 at 15:26; Status DC Apixaban 5 mg BID PO; Start 01/01/25 at 21:00; Stop 01/01/25 at 15:29; Status DC Furosemide 20 mg TIDMEALS PO Last administered on 01/01/25at 17:04; Start 01/01/25 at 17:00; Stop 01/31/25 at 16:59 WILLARD HOLDEN MD Jan 01, 2025 18:20
--- NOTE | 2025-01-01 21:11 | PN ---
SUBJECTIVE: A 69-year-old gentleman, status post CABG, coursing postop day #7. OBJECTIVE: GENERAL: Awake, alert, ____ intact. VITAL SIGNS: Stable as recorded in the medical record. CHEST: Sternum stable. Incision sealed. LUNGS: Clear. EXTREMITIES: Warm and well perfused. No evidence of DVT, hematoma, or infection. ASSESSMENT: Status post CABG. PROBLEM: * Coronary artery disease. Aspirin 81 mg daily, metoprolol 25 mg twice a day. * DVT prophylaxis. SCDs while in bed. Lovenox 30 mg once a day. * Pulmonary infiltrates. The patient is on antibiotics. We will switch to p.o. ciprofloxacin from Zosyn pending cultures. * Acute respiratory insufficiency with hypoxia. The patient is requiring 2 liters of nasal cannula and will be discharged home with oxygen. * Fluid overload. Lasix 20 mg twice a day. * Dyslipidemia. Lipitor 40 mg once a day. PLAN: OT, PT, cardiac rehab. Discharge home with home healthcare and oxygen. TID: [id number] RECEIPT: [id number]
[2025-01-02] VITALS (14 sets, daily range): BP systolic 117–144; BP diastolic 60–91; PULSE 52–75; RESP 18; TEMP 97.7–98.3; O2SAT 97–99
[2025-01-02 04:16] LABS: IMMATURE GRANULOCYTE ABSOLUTE 0.09 K/uL (0-1); NUCLEATED RED BLOOD CELLS 0.0 % (0.0-0.19); PLATELET COUNT (AUTO) 209 K/uL (130-400); RED BLOOD CELL COUNT(AUTO) 3.67 MIL/uL (4.50-6.20); RED CELL DISTRIBUTION WIDTH 22.1 % (11.0-15.5); WHITE BLOOD COUNT (AUTO) 8.2 K/uL (4.8-10.8)
[2025-01-02 04:33] LABS: ASPARTATE AMINOTRANSFERASE 30.0 U/L (10-37); CREATININE 1.0 mg/dL (0.5-1.3); GLOMERULAR FILTR. RATE CALC 81.0 mL/min (>90); GLUCOSE,RANDOM 95.0 mg/dL (70-105); SODIUM SERUM 137.0 mmol/L (136-145); TOTAL PROTEIN, SERUM 6.2 g/dL (6.0-8.3); UREA NITROGEN, BLOOD 10.0 mg/dL (7-18)
[2025-01-02] MEDS: PoTASSium chl 10% ELIXIR 20MEQ 20 MEQ/15 ML UDCUP PO PRN (05:30)
--- NOTE | 2025-01-02 07:09 | HMCIMG ---
EXAM: CR Chest, 1 View. CLINICAL HISTORY: follow up pulmonary edema COMPARISON: Chest radiograph dated 01/01/2025 FINDINGS: AP view of the chest is submitted. Slight interval improvement in interstitial and airspace disease throughout both lungs. Relatively unchanged small left effusion. No pneumothorax. Stable cardiomegaly and persistent pulmonary vascular congestion. IMPRESSION: 1. Improved but persistent bilateral pulmonary edema with pulmonary vascular congestion. 2. Unchanged small left pleural effusion. 3. Stable cardiomegaly. /[place]
--- NOTE | 2025-01-02 07:20 | HMCIMG ---
EXAM: CR Chest, 1 View. CLINICAL HISTORY: follow up pulmonary edema COMPARISON: Chest radiograph dated 01/01/2025 FINDINGS: AP view of the chest is submitted. Stable interstitial and airspace disease throughout both lungs. Stable small left effusion. No pneumothorax. Stable cardiomegaly and persistent pulmonary vascular congestion. IMPRESSION: Stable exam. /[place]
[2025-01-02] MEDS: PoTASSium chloRIDE 20MEQ ER 20 MEQ ERTAB PO SCH (09:51)
--- NOTE | 2025-01-02 10:24 | PN ---
[facility] CARDIOLOG[facility] PROGRESS NOTE Date Patient Seen: Jan 02, 2025 Time of Visit: 10:12 Interval History: This is a 69-year-old [place] male with a past medical history of hypertension, hyperlipidemia, persistent atrial fibrillation on long-term antico agulation with Eliquis, prior CVA, mild ischemic cardiomyopathy with an LVEF of 45-50% September 2024 who was found to have multivessel coronary artery disease as an outpatient. He underwent elective admission for coronary artery bypass and underwent coronary artery bypass graft x2 vessels, off pump with ENGLE to the LAD, saphenous vein graft to the OM and ligation of atrial appendage for persistent atrial fibrillation by Dr. Efrain Dutton 12/25/2024. He has had persistent CHF postop and his diuretics have been increased to furosemide 40 mg IV q.8 hours yesterday. This morning, he is up in the chair. He denies any dyspnea and reports no significant orthopnea or PND overnight. Telemetry has demonstrated atrial fibrillation at a rate of 60 beats per minute. Anticoagulation has been withdrawn status post ligation of left atrial appendage at the time of his surgery. Physical Examination: GENERAL: No acute distress. HEAD: Normal with no signs of head trauma. EYES: PERRLA, EOMI, conjunctiva and sclera normal. NECK: Supple without JVD. There is no tenderness, lymphadenopathy, or masses. No thyromegaly. Normal carotid upstrokes without bruits. LUNGS: Bilateral rales mcfp up the chest. HEART: Normal rate and rhythm. Normal S1 and S2 without murmurs, gallop or rub. Median sternotomy is open to air VASC: Peripheral pulses +2 bilaterally, trace of pedal edema. EXT: No clubbing, cyanosis or edema. NEURO: Awake, alert, and oriented x3. No focal neurological deficits noted. Laboratory: Hematology Labs: Test 01/02/25 04:04 01/01/25 04:22 Range/Units White Blood Count 8.2 4.8-10.8 K/uL Red Blood Count 3.67 L 4.50-6.20 MIL/uL Hemoglobin 8.3 L 14.0-18.0 g/dL Hematocrit 27.6 L 42-54 % Mean Corpuscular Volume 75.2 L 79-99 fL Mean Corpuscular Hemoglobin 22.6 L 27.0-33.0 pg Mean Corpuscular Hemoglobin Concent 30.1 L 32.0-36.0 g/dL Red Cell Distribution Width 22.1 H 11.0-15.5 % Platelet Count 209 130-400 K/uL Mean Platelet Volume 9.6 7.5-10.5 fL Immature Granulocyte % (Auto) 1.1 H 0-1 % Neutrophils (%) (Auto) 72.8 40.0-77.0 % Lymphocytes (%) (Auto) 13.3 L 21.0-51.0 % Monocytes (%) (Auto) 8.5 3.0-13.0 % Eosinophils (%) (Auto) 3.9 0.0-8.0 % Basophils (%) (Auto) 0.4 0.0-5.0 % Neutrophils # (Auto) 6.0 1.8-7.7 K/uL Lymphocytes # (Auto) 1.1 1.0-4.8 K/uL Monocytes # (Auto) 0.7 0.1-1.0 K/uL Eosinophils # (Auto) 0.32 0.00-0.70 K/uL Basophils # (Auto) 0.03 0.00-0.20 K/uL Absolute Immature Granulocyte (auto 0.09 0-1 K/uL Nucleated Red Blood Cells 0.0 0.0-0.19 % Red Blood Cell Morphology See comments Chemistry Labs: Test 01/02/25 05:14 01/02/25 04:04 12/31/24 11:03 Range/Units Whole Blood Glucose 88 70-110 MG/DL Sodium Level 137 136-145 mmol/L Potassium Level 3.4 L 3.5-5.1 mmol/L Chloride Level 100 L 101-111 mmol/L Carbon Dioxide Level 30 21-32 mmol/L Blood Urea Nitrogen 10 7-18 mg/dL Creatinine 1.0 0.5-1.3 mg/dL Glomerular Filtration Rate Calc 81 >90 mL/min Random Glucose 95 70-105 mg/dL Total Calcium 9.0 8.5-10.1 mg/dL Magnesium Level 1.90 1.80-2.40 mg/dL Total Bilirubin 0.8 0.2-1.0 mg/dL Aspartate Amino Transf (AST/SGOT) 30 10-37 U/L Alanine Aminotransferase (ALT/SGPT) 26 # 12-78 U/L Alkaline Phosphatase 91 50-136 U/L B-Type Natriuretic Peptide 660 H 0-100 pg/mL Total Protein 6.2 6.0-8.3 g/dL Albumin 2.5 L 3.5-5.0 g/dL Bedside Glucose Comment Notified Nurse Diagnostics / Radiology: Limited follow-up 2D echocardiogram 12/28/2024: Left Ventricle The left ventricle is moderately dilated. LVEF is 45-50%. Atria The left atrium is severely dilated. The right atrium is severely dilated. Conclusion Liimited study, no doppler. LVEF is 45-50%. Impression and Plan: Multivessel coronary artery disease status post off pump CABG x 2 vessels,with ENGLE to the LAD, saphenous vein graft to the OM and ligation of atrial appendage for persistent atrial fibrillation by Dr. Efrain Dutton 12/25/2024: -continue antiplatelet therapy, statin therapy -has had atrial fibrillation with intermittent slow ventricular response into the 50-60 beat per minute range precluding beta-janet therapy Ischemic cardiomyopathy with an LVEF of 45-50% by follow-up limited 2D echoca rdiogram 12/28/2024 Postoperative congestive heart failure, HFmrEF: -the patient will continue with furosemide 40 mg IV q.8 hours -replace potassium and magnesium to maintain potassium of 4.0 and magnesium of 2.0 -the patient reports he was previously intolerant to Entresto and Farxiga due to complaints of anxiety, lightheadedness and a sensation of near falling Persistent atrial fibrillation previously on long-term anticoagulation with Eliquis: -failed attempted cardioversion in the OR -has not required rate limiting drugs and no beta-janet has been initiated Comorbidities: Hypertension Hyperlipidemia Prior CVA PHYSICIAN ATTESTATION OF PHYSICIAN PAYROLL SECRETARY DOCUMENTATION: I attest that I was physically present for the barrow portions of the service and evaluated the patient with the Physician Taker Down, and I reviewed and discussed the case with the Physician Taker Down and made modifications to the Physician Taker Down's findings and plans of care as documented above SHEREE JACOBS Jan 02, 2025 10:24 JOSSUE BOBO MD Jan 03, 2025 12:57
--- NOTE | 2025-01-02 11:31 | PN ---
[facility] PROGRESS NOTE Date Patient Seen: Jan 02, 2025 Time of Visit: 11:26 Supervising Physician: Dr Chanel Primary Care Physician: Nahun Delarosa Outpatient Specialists: Dr Mercdao (cardiology) Inpatient Consults: DR Bartolo FOLEY Attending physician: Dr. Dutton Critical Care Note: PROBLEM LIST: CAD status post CABG x2 12/25/2024 Acute hypoxemic respiratory failure CAP - KLEB AERGE, PMIRABILIS Diastolic heart failure with the EF of 30-35% Intraoperative Afib RVR cardioverted x 2 Postop pulmonary edema Postoperative acute on chronic iron-deficiency anemia Hyperglycemia with a A1c of 6.0 Electrolyte derangement (hypokalemia, hyperphosphatemia, hypomagnesemia) Obesity BMI of 35.4 Comorbidities: Restrictive lung disease Essential hypertension Hyperlipidemia Atrial fibrillation on anticoagulation with the Eliquis last dose on 12/19/24 Iron-deficiency Chronic anemia 60 pack yr smoker INTERVAL HISTORY: Patient seen and examined, patient remains in heart failure requiring supplemental oxygen and IV Lasix. Patient on CPAP overnight. Currently on nasal cannula at 2 L. Patient reporting no chest pain or shortness of breath. He did fail his ambulation yesterday. Requiring O2. Otherwise vital signs are stable, afebrile, chest x-ray continues to improve He continues to diurese on Lasix. Case management is working on home health with home O2 Sputum - CAP - KLEB AERGE, PMIRABILIS on zosyn Plan: Continue diuresis, following cardiology recs, follow Cardiothoracic Surgeons postop protocol PT/OT I&Os Daily labs, chest x-ray Currently on Zosyn, follow cultures Tele Case management is assisting with discharge planning, patient will require home health along with home O2 as he failed his ambulation REVIEW OF SYSTEMS: Const: no fever, fatigue, or weight changes + fatigue Eyes: no recent vision problems ENT: No congestion, ear pain, or sore throat C/V: no chest pain, palpitations or edema _+midsternal incision tenderness. Resp: No cough, congestion, wheezing , or Shortness of breath GI: No abdominal pain, nausea, vomiting, constipation, or diarrhea : No incontinence of or dyuria M/S: No joint or pain swelling Skin: No rash Neuro: no headache, focal numbness, or weakness, dizziness or seizures Psych: no depression or anxiety Heme: no abnormal bruising or bleeding Lymph: no swollen glands PHYSICAL EXAM: GENERAL:AAOx3. recovering post CABG HEENT: Sclera non icteric, moist mucosa NECK: Supple, no JVD, trachea midline LUNGS: Coarse Ronchi breath sounds bilaterally. No wheezes. Chest tube in place draining sanguinous HEART: HR regular rate and rythm , S1 and S2 ABD: Abdomen soft, nontender. Bowel sounds present EXT: No clubbing cyanosis or edema, left leg Wilfrid wrap. Bilateral pulses with Doppler. NEURO: [id number] focal defecits. Vital Signs (last 8hr) Date Time Temp Pulse Resp B/P (MAP) Pulse Ox O2 Delivery O2 Flow Rate FiO2 01/02/25 11:15 54 18 N/Cannula Low lpm 2.0 01/02/25 08:00 99 Nasal Cannula* 2 28 01/02/25 07:52 18 N/Cannula Low lpm 2.0 28 01/02/25 07:37 98.1 61 18 134/71 99 Nasal Cannula 2.0 LABS: Hematology Labs: Test 01/02/25 04:04 01/01/25 04:22 Range/Units White Blood Count 8.2 4.8-10.8 K/uL Red Blood Count 3.67 L 4.50-6.20 MIL/uL Hemoglobin 8.3 L 14.0-18.0 g/dL Hematocrit 27.6 L 42-54 % Mean Corpuscular Volume 75.2 L 79-99 fL Mean Corpuscular Hemoglobin 22.6 L 27.0-33.0 pg Mean Corpuscular Hemoglobin Concent 30.1 L 32.0-36.0 g/dL Red Cell Distribution Width 22.1 H 11.0-15.5 % Platelet Count 209 130-400 K/uL Mean Platelet Volume 9.6 7.5-10.5 fL Immature Granulocyte % (Auto) 1.1 H 0-1 % Neutrophils (%) (Auto) 72.8 40.0-77.0 % Lymphocytes (%) (Auto) 13.3 L 21.0-51.0 % Monocytes (%) (Auto) 8.5 3.0-13.0 % Eosinophils (%) (Auto) 3.9 0.0-8.0 % Basophils (%) (Auto) 0.4 0.0-5.0 % Neutrophils # (Auto) 6.0 1.8-7.7 K/uL Lymphocytes # (Auto) 1.1 1.0-4.8 K/uL Monocytes # (Auto) 0.7 0.1-1.0 K/uL Eosinophils # (Auto) 0.32 0.00-0.70 K/uL Basophils # (Auto) 0.03 0.00-0.20 K/uL Absolute Immature Granulocyte (auto 0.09 0-1 K/uL Nucleated Red Blood Cells 0.0 0.0-0.19 % Red Blood Cell Morphology See comments Chemistry Labs: Test 01/02/25 11:05 01/02/25 04:04 Range/Units Whole Blood Glucose 98 70-110 MG/DL Sodium Level 137 136-145 mmol/L Potassium Level 3.4 L 3.5-5.1 mmol/L Chloride Level 100 L 101-111 mmol/L Carbon Dioxide Level 30 21-32 mmol/L Blood Urea Nitrogen 10 7-18 mg/dL Creatinine 1.0 0.5-1.3 mg/dL Glomerular Filtration Rate Calc 81 >90 mL/min Random Glucose 95 70-105 mg/dL Total Calcium 9.0 8.5-10.1 mg/dL Magnesium Level 1.90 1.80-2.40 mg/dL Total Bilirubin 0.8 0.2-1.0 mg/dL Aspartate Amino Transf (AST/SGOT) 30 10-37 U/L Alanine Aminotransferase (ALT/SGPT) 26 # 12-78 U/L Alkaline Phosphatase 91 50-136 U/L B-Type Natriuretic Peptide 660 H 0-100 pg/mL Total Protein 6.2 6.0-8.3 g/dL Albumin 2.5 L 3.5-5.0 g/dL DIAGNOSTICS / RADIOLOGY RESULTS: [ ] PLAN NEURO: Minimize central acting medications as possible. Fall Precautions. Well lighted room through the day and minimize interruptions through the night to prevent acute delirium. PULMONARY: Supplemental 02 as needed Titrate Fio2 to keep Spo2 > or = 90% DuoNebs and CPT as needed IS hourly while awake for pulmonary hygiene Out of bed to chair as tolerated CARDIOVASCULAR: Follow hemodynamics. Titrate vasopressor to keep MAP >65 or systolic blood pressure >95mmHg DRIPS: epi GI & NUTRITION: Continue nutritional support Aspirations precautions Prokinetic agents and laxatives as needed KIDNEYS & ELECTROLYTES: Strict monitoring of intake and output Daily weights Avoid nephrotoxic agents Monitor electrolytes and replace as needed Goal urine output of 30mL/hr or 0.5mL/kg/hr ENDOCRINE: Maintain blood glucose between 100-180 at all times. Insulin sliding scale for blood glucose management INFECTIOUS DISEASE: Trend temperature. Veloz-culture if febrile. Micro: MRSA Negative Antibiotics: Ancef x 3 completed Zosyn 12/27/24 L HEMATOLOGY & COAGULATION: Monitor H&H. Keep Hgb > 7 Transfuse 1 unit of PRBC for Hgb < 7 Transfuse 1 pack of platelets of platelets < 20, 000 Watch for any signs and symptoms of bleeding SKIN: Pressure ulcer prevention per facility protocol Rehab: PT/OT Prophylaxis: GI: pepcid DVT: wilfrid wraps per CV surgery Code Status: Full Resuscitation Disposition: ICU Other: Total patient care time exceeds 39 minutes excluding all procedures. Case was discussed and seen with my supervising physician. The above plan was formulated and agreed upon. MAYTE RUIZ Jan 02, 2025 11:31 CHELA MORENO MD Jan 03, 2025 07:35
[2025-01-03] VITALS (14 sets, daily range): BP systolic 102–138; BP diastolic 47–71; PULSE 50–64; RESP 18; TEMP 97.6–98.2; O2SAT 96–98
[2025-01-03 07:36] LABS: CREATININE 1.0 mg/dL (0.5-1.3); GLOMERULAR FILTR. RATE CALC 81.0 mL/min (>90); GLUCOSE,RANDOM 96.0 mg/dL (70-105); SODIUM SERUM 136.0 mmol/L (136-145); UREA NITROGEN, BLOOD 11.0 mg/dL (7-18)
--- NOTE | 2025-01-03 10:04 | PN ---
[facility] CARDIOLOGY PROGRESS NOTE Date Patient Seen: Jan 03, 2025 Time of Visit: 10:01 Interval History: This is a 69-year-old Latin-Maced[place] male with a past medical history of hypertension, hyperlipidemia, persistent atrial fibrillation with controlled darren tricular response off any rate limiting drugs consistent with underlying AV node conduction disease, long-term anticoagulation with Eliquis, prior CVA, mild ischemic cardiomyopathy with an LVEF of 45-50% September 2024 who was found to have multivessel coronary artery disease as an outpatient. He underwent elective admission for coronary artery bypass and underwent coronary artery bypass graft x2 vessels, off pump with ENGLE to the LAD, saphenous vein graft to the OM and ligation of atrial appendage for permanent atrial fibrillation by Dr. Efrain Dutton 12/25/2024 with a 50 mm atrial clip. He has had persistent CHF postop and his diuretics have been increased to furosemide 40 mg IV q.8 hours on 01/01/2025. He has diuresed 6.2 L overnight. Blood pressure has been stable. A follow-up chest x-ray today continues to demonstrate CHF changes. Telemetry has demonstrated atrial fibrillation at a rate of 50-60 beats per minute. Physical Examination: GENERAL: No acute distress. HEAD: Normal with no signs of head trauma. EYES: PERRLA, EOMI, conjunctiva and sclera normal. NECK: Supple without JVD. There is no tenderness, lymphadenopathy, or masses. No thyromegaly. Normal carotid upstrokes without bruits. LUNGS: Bibasilar rales left greater than right HEART: Normal rate and rhythm. Normal S1 and S2 without murmurs, gallop or rub. Median sternotomy is open to air VASC: Peripheral pulses +2 bilaterally, trace of pedal edema. EXT: No clubbing, cyanosis or edema. NEURO: Awake, alert, and oriented x3. No focal neurological deficits noted. Laboratory: Hematology Labs: Test 01/02/25 04:04 Range/Units White Blood Count 8.2 4.8-10.8 K/uL Red Blood Count 3.67 L 4.50-6.20 MIL/uL Hemoglobin 8.3 L 14.0-18.0 g/dL Hematocrit 27.6 L 42-54 % Mean Corpuscular Volume 75.2 L 79-99 fL Mean Corpuscular Hemoglobin 22.6 L 27.0-33.0 pg Mean Corpuscular Hemoglobin Concent 30.1 L 32.0-36.0 g/dL Red Cell Distribution Width 22.1 H 11.0-15.5 % Platelet Count 209 130-400 K/uL Mean Platelet Volume 9.6 7.5-10.5 fL Immature Granulocyte % (Auto) 1.1 H 0-1 % Neutrophils (%) (Auto) 72.8 40.0-77.0 % Lymphocytes (%) (Auto) 13.3 L 21.0-51.0 % Monocytes (%) (Auto) 8.5 3.0-13.0 % Eosinophils (%) (Auto) 3.9 0.0-8.0 % Basophils (%) (Auto) 0.4 0.0-5.0 % Neutrophils # (Auto) 6.0 1.8-7.7 K/uL Lymphocytes # (Auto) 1.1 1.0-4.8 K/uL Monocytes # (Auto) 0.7 0.1-1.0 K/uL Eosinophils # (Auto) 0.32 0.00-0.70 K/uL Basophils # (Auto) 0.03 0.00-0.20 K/uL Absolute Immature Granulocyte (auto 0.09 0-1 K/uL Nucleated Red Blood Cells 0.0 0.0-0.19 % Chemistry Labs: Test 01/03/25 07:13 01/03/25 05:58 01/02/25 04:04 Range/Units Sodium Level 136 136-145 mmol/L Potassium Level 3.7 3.5-5.1 mmol/L Chloride Level 100 L 101-111 mmol/L Carbon Dioxide Level 29 21-32 mmol/L Blood Urea Nitrogen 11 7-18 mg/dL Creatinine 1.0 0.5-1.3 mg/dL Glomerular Filtration Rate Calc 81 >90 mL/min Random Glucose 96 70-105 mg/dL Total Calcium 9.5 8.5-10.1 mg/dL B-Type Natriuretic Peptide 603 H 0-100 pg/mL Whole Blood Glucose 97 70-110 MG/DL Magnesium Level 1.90 1.80-2.40 mg/dL Total Bilirubin 0.8 0.2-1.0 mg/dL Aspartate Amino Transf (AST/SGOT) 30 10-37 U/L Alanine Aminotransferase (ALT/SGPT) 26 # 12-78 U/L Alkaline Phosphatase 91 50-136 U/L Total Protein 6.2 6.0-8.3 g/dL Albumin 2.5 L 3.5-5.0 g/dL Diagnostics / Radiology: Limited follow-up 2D echocardiogram 12/28/2024: Left Ventricle The left ventricle is moderately dilated. LVEF is 45-50%. Atria The left atrium is severely dilated. The right atrium is severely dilated. Conclusion Liimited study, no doppler. LVEF is 45-50%. Impression and Plan: Multivessel coronary artery disease status post off pump CABG x 2 vessels,with ENGLE to the LAD, saphenous vein graft to the OM and ligation of atrial appendage with 50 mm atrial clip for permanent atrial fibrillation by Dr. Efrain Dutton 12/25/2024: -continue antiplatelet therapy, statin therapy -has had atrial fibrillation with intermittent slow ventricular response into the 50-60 beat per minute range precluding beta-janet therapy Ischemic cardiomyopathy with an LVEF of 45-50% by follow-up limited 2D echocardiogram 12/28/2024 Postoperative congestive heart failure, HFmrEF: -6.2 L diuresis in the last 24 hours -slow down diuresis and reduce furosemide to 40 mg IV q.12 hours -replace potassium and magnesium to maintain potassium of 4.0 and magnesium of 2.0 -the patient reports he was previously intolerant to Entresto and Farxiga due to complaints of anxiety, lightheadedness and a sensation of near falling -begin lisinopril 10 mg p.o. daily -beta-janet will be avoided given evidence of underlying AV node conduction disease Permanent atrial fibrillation previously on long-term anticoagulation with Eliquis: Underlying AV node conduction disease: s/p 50 mm Atrial Clip 12/25/2024: -left atrial appendage occlusion either surgically or with Watchman device: 1. reduces the risk of thromboembolism but does not eliminate the risk, 2. provides further risk reduction in combination with anticoagulation, and 3. anticoagulation should be continued unless an absolute contraindication exists. This patient has a high CHADS-VASc stroke risk score with decreased ejection fraction, hypertension, coronary artery disease, and age greater than 65 years. Proceed with Eliquis anticoagulation beginning today -avoid beta-janet therapy Comorbidities: Hypertension Hyperlipidemia Prior CVA PHYSICIAN ATTESTATION OF PHYSICIAN INSPECTOR MECHANICAL DOCUMENTATION: I attest that I was physically present for the barrow portions of the service and evaluated the patient with the Physician Manager [employer], and I reviewed and discussed the case with the Physician Manager [employer] and made modifications to the Physician Manager [employer]'s findings and plans of care as documented above SHEREE JACOBS Jan 03, 2025 10:03 JOSSUE BOBO MD Jan 03, 2025 12:32
--- NOTE | 2025-01-03 10:58 | HMCIMG ---
EXAM: CR Chest, 1 View. CLINICAL HISTORY: pp COMPARISON: None provided. FINDINGS: Radiograph dated January 02, 2025 Findings: Relatively unchanged interstitial and airspace disease bilaterally presumed to reflect pulmonary edema. Small effusion on the left. No pneumothorax. Stable cardiomegaly. Persistent pulmonary vascular congestion. IMPRESSION: 1. Bilateral pulmonary edema with left pleural effusion. 2. Cardiomegaly with pulmonary vascular congestion. /[place]
--- NOTE | 2025-01-03 11:34 | PN ---
[facility] PROGRESS NOTE Date Patient Seen: Jan 03, 2025 Time of Visit: 11:32 Supervising Physician: Dr Price Primary Care Physician: Nahun Delarosa Outpatient Specialists: Dr Mercado (cardiology) Inpatient Consults: DR Bartolo FOLEY Attending physician: Dr. Dutton Critical Care Note: PROBLEM LIST: CAD status post CABG x2 12/25/2024 Acute hypoxemic respiratory failure CAP - KLEB AERGE, PMIRABILIS Diastolic heart failure with the EF of 30-35% Intraoperative Afib RVR cardioverted x 2 Postop pulmonary edema Postoperative acute on chronic iron-deficiency anemia Hyperglycemia with a A1c of 6.0 Electrolyte derangement (hypokalemia, hyperphosphatemia, hypomagnesemia) Obesity BMI of 35.4 Comorbidities: Restrictive lung disease Essential hypertension Hyperlipidemia Atrial fibrillation on anticoagulation with the Eliquis last dose on 12/19/24 Iron-deficiency Chronic anemia 60 pack yr smoker INTERVAL HISTORY: Patient seen and examined, patient remains in heart failure requiring supplemental oxygen and IV Lasix. Patient is awake alert and oriented, sitting comfortably at bedside chair. Talking with family members at bedside. Tolerating diet Remains on nasal cannula 2 L and requires for ambulation Pending a.m. chest x-ray, patient diuresed over 6 L in last 24 hours Continues on Lasix q.12 hours Afebrile Off any pressors Plan: Continue diuresis, following cardiology recs, follow Cardiothoracic Surgeons postop protocol PT/OT I&Os Daily labs, chest x-ray Currently on Zosyn, follow cultures Tele Case management is assisting with discharge planning, patient will require home health along with home O2 as he failed his ambulation REVIEW OF SYSTEMS: Const: no fever, fatigue, or weight changes + fatigue Eyes: no recent vision problems ENT: No congestion, ear pain, or sore throat C/V: no chest pain, palpitations or edema _+midsternal incision tenderness. Resp: No cough, congestion, wheezing , or Shortness of breath GI: No abdominal pain, nausea, vomiting, constipation, or diarrhea : No incontinence of or dyuria M/S: No joint or pain swelling Skin: No rash Neuro: no headache, focal numbness, or weakness, dizziness or seizures Psych: no depression or anxiety Heme: no abnormal bruising or bleeding Lymph: no swollen glands PHYSICAL EXAM: GENERAL:AAOx3. recovering post CABG HEENT: Sclera non icteric, moist mucosa NECK: Supple, no JVD, trachea midline LUNGS: Coarse Ronchi breath sounds bilaterally. No wheezes. Chest tube in place draining sanguinous HEART: HR regular rate and rythm , S1 and S2 ABD: Abdomen soft, nontender. Bowel sounds present EXT: No clubbing cyanosis or edema, left leg Wilfrid wrap. Bilateral pulses with Doppler. NEURO: [id number] focal defecits. Vital Signs (last 8hr) Date Time Temp Pulse Resp B/P (MAP) Pulse Ox O2 Delivery O2 Flow Rate FiO2 01/03/25 11:21 53 18 01/03/25 11:20 53 18 N/Cannula Low lpm 2.0 28 01/03/25 08:00 97 Nasal Cannula* 2 28 01/03/25 07:32 97.9 55 18 116/54 97 Nasal Cannula 2.0 01/03/25 06:48 52 18 01/03/25 06:48 52 18 N/Cannula Low lpm 2.0 28 LABS: Hematology Labs: Test 01/02/25 04:04 Range/Units White Blood Count 8.2 4.8-10.8 K/uL Red Blood Count 3.67 L 4.50-6.20 MIL/uL Hemoglobin 8.3 L 14.0-18.0 g/dL Hematocrit 27.6 L 42-54 % Mean Corpuscular Volume 75.2 L 79-99 fL Mean Corpuscular Hemoglobin 22.6 L 27.0-33.0 pg Mean Corpuscular Hemoglobin Concent 30.1 L 32.0-36.0 g/dL Red Cell Distribution Width 22.1 H 11.0-15.5 % Platelet Count 209 130-400 K/uL Mean Platelet Volume 9.6 7.5-10.5 fL Immature Granulocyte % (Auto) 1.1 H 0-1 % Neutrophils (%) (Auto) 72.8 40.0-77.0 % Lymphocytes (%) (Auto) 13.3 L 21.0-51.0 % Monocytes (%) (Auto) 8.5 3.0-13.0 % Eosinophils (%) (Auto) 3.9 0.0-8.0 % Basophils (%) (Auto) 0.4 0.0-5.0 % Neutrophils # (Auto) 6.0 1.8-7.7 K/uL Lymphocytes # (Auto) 1.1 1.0-4.8 K/uL Monocytes # (Auto) 0.7 0.1-1.0 K/uL Eosinophils # (Auto) 0.32 0.00-0.70 K/uL Basophils # (Auto) 0.03 0.00-0.20 K/uL Absolute Immature Granulocyte (auto 0.09 0-1 K/uL Nucleated Red Blood Cells 0.0 0.0-0.19 % Chemistry Labs: Test 01/03/25 07:13 01/03/25 05:58 01/02/25 04:04 Range/Units Sodium Level 136 136-145 mmol/L Potassium Level 3.7 3.5-5.1 mmol/L Chloride Level 100 L 101-111 mmol/L Carbon Dioxide Level 29 21-32 mmol/L Blood Urea Nitrogen 11 7-18 mg/dL Creatinine 1.0 0.5-1.3 mg/dL Glomerular Filtration Rate Calc 81 >90 mL/min Random Glucose 96 70-105 mg/dL Total Calcium 9.5 8.5-10.1 mg/dL B-Type Natriuretic Peptide 603 H 0-100 pg/mL Whole Blood Glucose 97 70-110 MG/DL Magnesium Level 1.90 1.80-2.40 mg/dL Total Bilirubin 0.8 0.2-1.0 mg/dL Aspartate Amino Transf (AST/SGOT) 30 10-37 U/L Alanine Aminotransferase (ALT/SGPT) 26 # 12-78 U/L Alkaline Phosphatase 91 50-136 U/L Total Protein 6.2 6.0-8.3 g/dL Albumin 2.5 L 3.5-5.0 g/dL DIAGNOSTICS / RADIOLOGY RESULTS: [ ] PLAN NEURO: Minimize central acting medications as possible. Fall Precautions. Well lighted room through the day and minimize interruptions through the night to prevent acute delirium. PULMONARY: Supplemental 02 as needed Titrate Fio2 to keep Spo2 > or = 90% DuoNebs and CPT as needed IS hourly while awake for pulmonary hygiene Out of bed to chair as tolerated CARDIOVASCULAR: Follow hemodynamics. Titrate vasopressor to keep MAP >65 or systolic blood pressure >95mmHg DRIPS: epi GI & NUTRITION: Continue nutritional support Aspirations precautions Prokinetic agents and laxatives as needed KIDNEYS & ELECTROLYTES: Strict monitoring of intake and output Daily weights Avoid nephrotoxic agents Monitor electrolytes and replace as needed Goal urine output of 30mL/hr or 0.5mL/kg/hr ENDOCRINE: Maintain blood glucose between 100-180 at all times. Insulin sliding scale for blood glucose management INFECTIOUS DISEASE: Trend temperature. Veloz-culture if febrile. Micro: MRSA Negative Antibiotics: Ancef x 3 completed Zosyn 12/27/24 L HEMATOLOGY & COAGULATION: Monitor H&H. Keep Hgb > 7 Transfuse 1 unit of PRBC for Hgb < 7 Transfuse 1 pack of platelets of platelets < 20, 000 Watch for any signs and symptoms of bleeding SKIN: Pressure ulcer prevention per facility protocol Rehab: PT/OT Prophylaxis: GI: pepcid DVT: wilfrid wraps per CV surgery Code Status: Full Resuscitation Disposition: ICU Other: Total patient critical care time exceeds 44 minutes excluding all procedures. Case was discussed and seen with my supervising physician. The above plan was formulated and agreed upon. MAYTE RUIZ Jan 03, 2025 11:34
--- NOTE | 2025-01-03 19:10 | PN ---
SUBJECTIVE: A 69-year-old status post CABG, coursing postoperative day #9. OBJECTIVE: GENERAL: Awake, alert, afebrile, neurologically intact. VITAL SIGNS: Stable as recorded in the medical record. CHEST: Sternum stable. Incision sealed. LUNGS: Clear. EXTREMITIES: Warm and well perfused. No evidence of DVT, hematoma, or infection. ASSESSMENT AND PLAN: Status post CABG. PROBLEMS: * Coronary artery disease. Aspirin 81 mg, metoprolol 25 mg twice a day. * Fluid overload. Lasix IV 40 mg every 8 hours. Continue diuresis. Monitor BUN and creatinine. * Dyslipidemia. Lipitor 40 mg once a day. * Disposition. OT, PT, cardiac rehab, discharge planning for tomorrow. TID: [id number] RECEIPT: [id number]
[2025-01-03 22:06] LABS: NUCLEATED RED BLOOD CELLS 0.0 % (0.0-0.19); PLATELET COUNT (AUTO) 244 K/uL (130-400); RED BLOOD CELL COUNT(AUTO) 3.71 MIL/uL (4.50-6.20); RED CELL DISTRIBUTION WIDTH 23.4 % (11.0-15.5); WHITE BLOOD COUNT (AUTO) 9.3 K/uL (4.8-10.8)
[2025-01-03 22:12] LABS: IMMATURE GRANULOCYTE ABSOLUTE 0.10 K/uL (0-1)
[2025-01-03 22:20] LABS: CREATININE 0.9 mg/dL (0.5-1.3); GLOMERULAR FILTR. RATE CALC 92.0 mL/min (>90); GLUCOSE,RANDOM 97.0 mg/dL (70-105); SODIUM SERUM 130.0 mmol/L (136-145); UREA NITROGEN, BLOOD 13.0 mg/dL (7-18)
[2025-01-03 22:24] LABS: ASPARTATE AMINOTRANSFERASE 26.0 U/L (10-37); TOTAL PROTEIN, SERUM 6.5 g/dL (6.0-8.3)
[2025-01-04] VITALS (9 sets, daily range): BP systolic 115–143; BP diastolic 47–62; PULSE 50–105; RESP 18–24; TEMP 97.7–98.2; O2SAT 86–99
[2025-01-04 06:11] LABS: ASPARTATE AMINOTRANSFERASE 25.0 U/L (10-37); CREATININE 0.9 mg/dL (0.5-1.3); GLOMERULAR FILTR. RATE CALC 92.0 mL/min (>90); GLUCOSE,RANDOM 94.0 mg/dL (70-105); SODIUM SERUM 135.0 mmol/L (136-145); TOTAL PROTEIN, SERUM 6.4 g/dL (6.0-8.3); UREA NITROGEN, BLOOD 12.0 mg/dL (7-18)
--- NOTE | 2025-01-04 06:46 | EKG ---
[facility] Test Date: 2025-01-03 Test Time: 21:20:17 Pat Name: KYLE CHASE Department: [facility] Room: 203 1 Gender: M Information Systems Operator: [id number] : 1955 Requested By: WALE LATIF Order Number: [id number] Reading MD: Ruthy Rios Measurements Intervals [place] Rate: 61 P: 0 AK: 0 QRS: -87 QRSD: 164 T: 100 QT: 478 QTc: 482 Interpretive Statements Atrial fibrillation Right bundle branch block Inferior infarct, old Compared to ECG 12/25/2024 11:47:45 Right bundle-branch block now present Myocardial infarct finding now present Ventricular-paced complex(es) or rhythm no longer present Electronically Signed On 01-05-2025 14:08:33 CDT by Ruthy Rios Please click the below link to view image of tracing.
--- NOTE | 2025-01-04 07:55 | PN ---
PROGRESS NOTE PROBLEM LIST: Ischemic cardiomyopathy Coronary artery status post coronary artery bypass grafting x2 martins-lad, SVG-OMB Persistent atrial fibrillation on chronic anticoagulation therapy Diabetes mellitus Dyslipidemia INTERIM HISTORY OF PRESENT ILLNESS: The patient currently feels improved has had issues related to volume overload and fluid retention partially iatrogenic partially related to underlying cardiomyopathy the patient has responded very nicely to diuresis. Patient will need to go home on diuretic therapy and we will switch over oral medication a day. REVIEW OF SYSTEMS: No fever, headache, chest pain, abdominal pain, nausea, vomiting, or diarrhea. VITAL SIGNS Vital Signs Date Time Temp Pulse Resp B/P (MAP) Pulse Ox O2 Delivery O2 Flow Rate FiO2 01/04/25 06:16 64 18 N/Cannula Low lpm 2.0 28 01/04/25 03:00 98.1 115/47 98 Laboratory Tests 01/03/25 22:00 01/04/25 05:38 LABS/MEDS Laboratory Tests Test 01/03/25 22:00 01/04/25 05:38 White Blood Count 9.3 K/uL (4.8-10.8) Red Blood Count 3.71 MIL/uL (4.50-6.20) L Hemoglobin 8.5 g/dL (14.0-18.0) L Hematocrit 28.3 % (42-54) L Mean Corpuscular Volume 76.3 fL (79-99) L Mean Corpuscular Hemoglobin 22.9 pg (27.0-33.0) L Mean Corpuscular Hemoglobin Concent 30.0 g/dL (32.0-36.0) L Red Cell Distribution Width 23.4 % (11.0-15.5) H Platelet Count 244 K/uL (130-400) Mean Platelet Volume 9.8 fL (7.5-10.5) Immature Granulocyte % (Auto) 1.1 % (0-1) H Neutrophils (%) (Auto) 74.4 % (40.0-77.0) Lymphocytes (%) (Auto) 12.7 % (21.0-51.0) L Monocytes (%) (Auto) 8.5 % (3.0-13.0) Eosinophils (%) (Auto) 3.1 % (0.0-8.0) Basophils (%) (Auto) 0.2 % (0.0-5.0) Neutrophils # (Auto) 6.8 K/uL (1.8-7.7) Lymphocytes # (Auto) 1.2 K/uL (1.0-4.8) Monocytes # (Auto) 0.8 K/uL (0.1-1.0) Eosinophils # (Auto) 0.28 K/uL (0.00-0.70) Basophils # (Auto) 0.02 K/uL (0.00-0.20) Absolute Immature Granulocyte (auto 0.10 K/uL (0-1) Nucleated Red Blood Cells 0.0 % (0.0-0.19) Sodium Level 130 mmol/L (136-145) L 135 mmol/L (136-145) L Potassium Level 3.7 mmol/L (3.5-5.1) 4.7 mmol/L (3.5-5.1) Chloride Level 96 mmol/L (101-111) L 101 mmol/L (101-111) Carbon Dioxide Level 28 mmol/L (21-32) 28 mmol/L (21-32) Blood Urea Nitrogen 13 mg/dL (7-18) 12 mg/dL (7-18) Creatinine 0.9 mg/dL (0.5-1.3) 0.9 mg/dL (0.5-1.3) Glomerular Filtration Rate Calc 92 mL/min (>90) 92 mL/min (>90) Random Glucose 97 mg/dL (70-105) 94 mg/dL (70-105) Total Calcium 9.1 mg/dL (8.5-10.1) 9.4 mg/dL (8.5-10.1) Magnesium Level 1.80 mg/dL (1.80-2.40) 2.30 mg/dL (1.80-2.40) Total Bilirubin 0.7 mg/dL (0.2-1.0) 0.6 mg/dL (0.2-1.0) Aspartate Amino Transf (AST/SGOT) 26 U/L (10-37) 25 U/L (10-37) Alanine Aminotransferase (ALT/SGPT) 26 U/L (12-78) 25 U/L (12-78) Alkaline Phosphatase 100 U/L (50-136) 91 U/L (50-136) Troponin I High Sensitivity 305 ng/L (4-75) *H B-Type Natriuretic Peptide 615 pg/mL (0-100) H 539 pg/mL (0-100) H Total Protein 6.5 g/dL (6.0-8.3) 6.4 g/dL (6.0-8.3) Albumin 2.6 g/dL (3.5-5.0) L 2.6 g/dL (3.5-5.0) L Current Medications Epinephrine HCl 10 mg/Sodium Chloride 250 ml @ 0 mls/hr AD PRN IV Last administered on 12/26/24at 01:06; Start 12/25/24 at 06:00; Stop 01/01/25 at 07:31; Status DC Norepinephrine Bitartrate 250 ml @ 0 mls/hr AD PRN IV Last administered on 12/25/24at 20:46; Start 12/25/24 at 06:00; Stop 01/01/25 at 07:31; Status DC Aminocaproic Acid 50124 mg/Sodium Chloride 480 ml @ 0 mls/hr AD PRN IV; Start 12/25/24 at 06:00; Stop 01/01/25 at 07:31; Status DC Cefazolin Sodium 1 gm STK-MED ONCE .ROUTE; Start 12/25/24 at 06:25; Stop 12/25/24 at 06:25; Status DC Heparin Sodium/ Sodium Chloride 500 ml @ As Directed STK-MED ONCE IV; Start 12/25/24 at 06:25; Stop 12/25/24 at 06:25; Status DC Papaverine HCl 60 mg STK-MED ONCE .ROUTE; Start 12/25/24 at 06:25; Stop 12/25/24 at 06:26; Status DC Cefazolin Sodium 2 gm STK-MED ONCE .ROUTE; Start 12/25/24 at 07:05; Stop 12/25/24 at 07:11; Status DC Sodium Chloride 1,000 ml @ As Directed STK-MED ONCE IV Last administered on 12/25/24at 07:26; Start 12/25/24 at 07:05; Stop 12/25/24 at 07:11; Status DC Nitroglycerin/ Dextrose 1 ml @ As Directed STK-MED ONCE .ROUTE; Start 12/25/24 at 07:29; Stop 12/25/24 at 07:34; Status DC Cardioplegic Solution 1 ml @ As Directed STK-MED ONCE IV; Start 12/25/24 at 07:48; Stop 12/25/24 at 07:48; Status DC Protamine Sulfate 250 mg STK-MED ONCE IV; Start 12/25/24 at 07:55; Stop 12/25/24 at 07:55; Status DC Lidocaine HCl 100 mg STK-MED ONCE .ROUTE; Start 12/25/24 at 07:55; Stop 12/25/24 at 07:55; Status DC Heparin Sodium (Porcine) 10,000 unit STK-MED ONCE .ROUTE; Start 12/25/24 at 07:55; Stop 12/25/24 at 07:55; Status DC Epinephrine HCl 1 mg STK-MED ONCE .ROUTE; Start 12/25/24 at 07:55; Stop 12/25/24 at 07:55; Status DC Sodium Bicarbonate 200 ml @ As Directed STK-MED ONCE .ROUTE; Start 12/25/24 at 07:55; Stop 12/25/24 at 07:55; Status DC Norepinephrine Bitartrate 4 mg STK-MED ONCE IV; Start 12/25/24 at 07:55; Stop 12/25/24 at 07:55; Status DC Propofol 200 mg STK-MED ONCE IV; Start 12/25/24 at 07:55; Stop 12/25/24 at 07:56; Status DC Fentanyl Citrate 1,000 mcg STK-MED ONCE IJ; Start 12/25/24 at 07:56; Stop 12/25/24 at 07:56; Status DC Midazolam HCl 2 mg STK-MED ONCE .ROUTE; Start 12/25/24 at 07:56; Stop 12/25/24 at 07:56; Status DC Rocuronium [place] 50 mg STK-MED ONCE .ROUTE; Start 12/25/24 at 07:56; Stop 12/25/24 at 07:56; Status DC Acetaminophen 1,000 mg Q6H6 IV Last administered on 12/26/24at 06:08; Start 12/25/24 at 12:00; Stop 12/26/24 at 11:59; Status DC Aspirin 81 mg ONCE ONCE NG; Start 12/25/24 at 12:00; Stop 12/25/24 at 12:01; Status DC Aspirin 81 mg DAILY PO Last administered on 01/03/25at 08:37; Start 12/26/24 at 09:00; Stop 01/25/25 at 08:59 Docusate Sodium 100 mg BID PO Last administered on 01/03/25at 20:07; Start 12/25/24 at 21:00; Stop 01/24/25 at 20:59 Lactulose 20 gm BID PRN PO; Start 12/25/24 at 08:00; Stop 01/24/25 at 07:59 Furosemide 20 mg Q12H PO; Start 12/27/24 at 09:00; Stop 12/26/24 at 10:17; Status DC Furosemide 20 mg Q12H IV Last administered on 12/26/24at 08:08; Start 12/26/24 at 09:00; Stop 12/26/24 at 10:49; Status DC Atorvastatin Calcium 40 mg HS PO Last administered on 01/03/25at 20:07; Start 12/25/24 at 21:00; Stop 01/24/25 at 20:59 Enoxaparin Sodium 30 mg DAILY SQ Last administered on 12/29/24at 08:34; Start 12/25/24 at 09:00; Stop 12/29/24 at 14:02; Status DC Metoprolol Tartrate 12.5 mg BID PO Last administered on 12/29/24at 20:52; Start 12/27/24 at 09:00; Stop 12/30/24 at 08:22; Status DC Magnesium Hydroxide 30 ml DAILY PRN PO; Start 12/25/24 at 08:00; Stop 01/24/25 at 07:59 Dexmedetomidine/ Sodium Chloride 400 mcg PROTOCOL IV; Start 12/25/24 at 08:00; Stop 12/26/24 at 07:59; Status DC Acetaminophen 650 mg Q6H PRN PO Last administered on 01/03/25at 20:07; Start 12/25/24 at 08:00; Stop 01/24/25 at 07:59 Ketamine HCl 500 mg STK-MED ONCE IJ; Start 12/25/24 at 08:13; Stop 12/25/24 at 08:13; Status DC Sodium Chloride 1,000 ml @ 10 mls/hr ONCE IV Last administered on 12/25/24at 12:13; Start 12/25/24 at 08:30; Stop 12/26/24 at 08:29; Status DC Sodium Chloride 10 ml Q8H PRN IVP; Start 12/25/24 at 08:30; Stop 01/24/25 at 08:29 Morphine Sulfate 0.5 mg Q2H PRN IV; Start 12/25/24 at 09:00; Stop 12/30/24 at 11:59; Status DC Morphine Sulfate 1 mg Q2H PRN IV; Start 12/25/24 at 09:00; Stop 12/30/24 at 11:59; Status DC Acetaminophen 650 mg Q4H PRN RC; Start 12/25/24 at 08:30; Stop 01/24/25 at 08:29 Ondansetron HCl 4 mg Q6H PRN IV Last administered on 12/27/24at 01:11; Start 12/25/24 at 08:30; Stop 01/24/25 at 08:29 Sodium Chloride 500 ml @ 0 mls/hr AD IV; Start 12/25/24 at 08:30; Stop 01/24/25 at 08:29 Nitroglycerin/ Dextrose 0 ml @ 0 mls/hr AD IV; Start 12/25/24 at 08:30; Stop 12/28/24 at 08:29; Status DC Propofol 100 ml @ 0 mls/hr AD PRN IV; Start 12/25/24 at 08:30; Stop 12/29/24 at 08:29; Status DC Norepinephrine Bitartrate 8 mg/ Dextrose 250 ml @ 0 mls/hr AD PRN IV; Start 12/25/24 at 08:30; Stop 12/25/24 at 08:40; Status DC Epinephrine HCl 10 mg/Sodium Chloride 250 ml @ 0 mls/hr AD PRN IV; Start 12/25/24 at 08:30; Stop 12/25/24 at 08:40; Status DC Aminocaproic Acid 52742 mg/Sodium Chloride 310 ml @ 25 mls/hr AD IV; Start 12/25/24 at 08:30; Stop 12/25/24 at 08:40; Status DC Calcium Gluconate 1 gm/Sodium Chloride 60 ml @ 200 mls/hr AD PRN IV Last administered on 12/26/24at 15:57; Start 12/25/24 at 08:30; Stop 01/24/25 at 08:29 Magnesium Sulfate 50 ml @ 12.5 mls/hr AD PRN IV Last administered on 01/04/25at 00:17; Start 12/25/24 at 08:30; Stop 01/24/25 at 08:29 Potassium Chloride 100 ml @ 100 mls/hr AD PRN IV Last administered on 12/25/24at 19:59; Start 12/25/24 at 08:30; Stop 01/24/25 at 08:29 Potassium Phosphate 250 ml @ 42 mls/hr AD PRN IV; Start 12/25/24 at 08:30; Stop 01/24/25 at 08:29 Albumin Human 250 ml @ 0 mls/hr AD PRN IV Last administered on 12/25/24at 13:21; Start 12/25/24 at 08:30; Stop 12/25/24 at 13:21; Status DC Acetaminophen 650 mg Q4H PRN PO; Start 12/25/24 at 08:30; Stop 01/24/25 at 08:29 Insulin Human Regular 100 unit/ Sodium Chloride 100 ml @ 0 mls/hr AD IV Last administered on 12/26/24at 01:05; Start 12/25/24 at 08:30; Stop 12/27/24 at 08:29; Status DC Cefazolin Sodium 2 gm Q8H IVPB Last administered on 12/26/24at 04:46; Start 12/25/24 at 13:30; Stop 12/26/24 at 05:31; Status DC Tramadol HCl 25 mg Q6H PRN PO; Start 12/25/24 at 08:30; Stop 12/30/24 at 08:29; Status DC Tramadol HCl 50 mg Q6H PRN PO Last administered on 12/27/24at 16:29; Start 12/25/24 at 08:30; Stop 12/30/24 at 08:29; Status DC Famotidine 20 mg BID IV Last administered on 12/28/24at 08:50; Start 12/25/24 at 09:00; Stop 12/28/24 at 19:10; Status DC Sodium Bicarbonate 50 meq AD PRN IV Last administered on 12/25/24at 17:46; Start 12/25/24 at 08:30; Stop 12/28/24 at 08:29; Status DC Dextrose 50 ml AD PRN IV; Start 12/25/24 at 08:30; Stop 01/24/25 at 08:29 Glucagon 1 mg AD PRN IM; Start 12/25/24 at 08:30; Stop 01/24/25 at 08:29 Papaverine HCl 60 mg STK-MED ONCE IRRIG Last administered on 12/25/24at 08:30; Start 12/25/24 at 08:30; Stop 12/25/24 at 10:08; Status DC Cefazolin Sodium 1 gm STK-MED ONCE IRRIG Last administered on 12/25/24at 08:30; Start 12/25/24 at 08:30; Stop 12/25/24 at 10:08; Status DC Cefazolin Sodium 2 gm STK-MED ONCE IVPB Last administered on 12/25/24at 08:55; Start 12/25/24 at 08:55; Stop 12/25/24 at 10:08; Status DC Vasopressin 20 units STK-MED ONCE .ROUTE; Start 12/25/24 at 10:14; Stop 12/25/24 at 10:15; Status DC Glycopyrrolate 1 mg STK-MED ONCE .ROUTE; Start 12/25/24 at 10:30; Stop 12/25/24 at 10:30; Status DC Sodium Bicarbonate 250 ml @ As Directed STK-MED ONCE .ROUTE; Start 12/25/24 at 11:09; Stop 12/25/24 at 11:10; Status DC Vasopressin 40 units/Sodium Chloride 40 ml @ 0 mls/hr PROTOCOL IV Last administered on 12/26/24at 01:07; Start 12/25/24 at 12:00; Stop 01/01/25 at 07:31; Status DC Iron Sucrose 300 mg/Sodium Chloride 250 ml @ 83 mls/hr DAILY IV Last administered on 12/28/24at 10:11; Start 12/26/24 at 10:00; Stop 12/28/24 at 12:01; Status DC Furosemide 20 mg Q12H PO Last administered on 12/29/24at 08:33; Start 12/27/24 at 09:00; Stop 12/29/24 at 08:41; Status DC Furosemide 20 mg Q8H5 IV Last administered on 12/27/24at 12:48; Start 12/26/24 at 13:00; Stop 12/27/24 at 17:48; Status DC Folic Acid 1 mg DAILY IV Last administered on 12/31/24at 09:43; Start 12/26/24 at 13:30; Stop 01/01/25 at 09:07; Status DC Thiamine HCl 300 mg DAILY IVP Last administered on 12/29/24at 08:32; Start 12/26/24 at 13:30; Stop 12/29/24 at 13:29; Status DC Artificial Tears 1 DROP OR AD Q2H PRN OU Last administered on 12/27/24at 08:13; Start 12/26/24 at 14:00; Stop 01/25/25 at 13:59 Insulin Human Regular INSULIN SLIDING SCAL... ACHS SQ; Start 12/27/24 at 11:30; Stop 01/03/25 at 12:20; Status DC Piperacillin Sod/ Tazobactam Sod 3.375 gm Q8H IVPB Last administered on 12/27/24at 17:48; Start 12/27/24 at 10:30; Stop 12/27/24 at 21:14; Status DC Sodium Chloride 50 ml AD IV; Start 12/27/24 at 10:30; Stop 12/27/24 at 10:26; Status DC Piperacillin Sod/ Tazobactam Sod 3.375 gm Q12H IVPB Last administered on 01/04/25at 06:08; Start 12/28/24 at 06:30; Stop 01/06/25 at 10:29 Ipratropium [place] 0.5 mg [id number] IH Last administered on 01/04/25at 06:14; Start 12/28/24 at 12:00; Stop 01/27/25 at 11:59 Ipratropium [place] 0.5 mg STK-MED ONCE IH; Start 12/28/24 at 10:55; Stop 12/28/24 at 10:55; Status DC Heparin Sodium (Porcine) 10,000 unit STK-MED ONCE IV; Start 12/25/24 at 11:01; Stop 12/28/24 at 11:01; Status DC Famotidine 20 mg BID PO Last administered on 01/03/25at 20:08; Start 12/28/24 at 21:00; Stop 01/27/25 at 20:59 Lidocaine HCl 5 ml ONCE ONCE IV; Start 12/28/24 at 23:30; Stop 12/28/24 at 23:35; Status DC Lidocaine HCl 5 ml ONCE ONCE IV Last administered on 12/28/24at 23:39; Start 12/28/24 at 23:45; Stop 12/28/24 at 23:46; Status DC Furosemide 20 mg Q8H5 PO; Start 12/29/24 at 09:00; Stop 12/29/24 at 09:08; Status DC Milrinone Lactate/ Dextrose 100 ml @ 0 mls/hr PROTOCOL IV Last administered on 12/29/24at 09:13; Start 12/29/24 at 09:00; Stop 12/29/24 at 14:02; Status DC Furosemide 20 mg Q8H5 IV Last administered on 01/01/25at 05:10; Start 12/29/24 at 13:00; Stop 01/01/25 at 10:34; Status DC Sodium Chloride 4 ml STK-MED ONCE IH Last administered on 12/29/24at 11:15; Start 12/29/24 at 10:59; Stop 12/29/24 at 11:00; Status DC Enoxaparin Sodium 1 unit Q12H SQ; Start 12/29/24 at 14:00; Stop 12/29/24 at 14:04; Status DC Amiodarone HCl 150 mg/Dextrose 103 ml @ 618 mls/hr ONCE IV; Start 12/29/24 at 14:00; Stop 12/29/24 at 14:04; Status DC Amiodarone HCl 360 mg/Dextrose 207.2 ml @ 33.3 mls/hr AD IV; Start 12/29/24 at 14:00; Stop 12/29/24 at 14:04; Status DC Amiodarone HCl 540 mg/Dextrose 310.8 ml @ 16.7 mls/hr [id number] IV; Start 12/29/24 at 14:00; Stop 01/01/25 at 07:31; Status DC Amiodarone HCL/ Dextrose 100 ml @ 0 mls/hr ONCE ONCE IV Last administered on 12/29/24at 14:21; Start 12/29/24 at 14:30; Stop 12/29/24 at 18:35; Status DC Amiodarone HCL/ Dextrose 200 ml @ 0 mls/hr ONCE ONCE IV Last administered on 12/29/24at 14:37; Start 12/29/24 at 14:30; Stop 12/29/24 at 18:35; Status DC Enoxaparin Sodium 110 mg Q12H SQ; Start 12/29/24 at 14:30; Stop 12/29/24 at 14:19; Status DC Enoxaparin Sodium 110 mg Q12H SQ Last administered on 01/01/25at 08:33; Start 12/29/24 at 20:00; Stop 01/01/25 at 10:34; Status DC Sodium Chloride 4 ml STK-MED ONCE IH; Start 12/29/24 at 18:35; Stop 12/29/24 at 18:35; Status DC Potassium Chloride 100 ml @ 100 mls/hr AD PRN IV; Start 12/30/24 at 08:00; Stop 12/30/24 at 08:00; Status DC Potassium Chloride 20 meq AD PRN PO Last administered on 01/02/25at 05:30; Start 12/30/24 at 08:00; Stop 01/29/25 at 07:59 Potassium Chloride 20 meq AD PRN PO Last administered on 01/04/25at 01:55; Start 12/30/24 at 08:00; Stop 01/29/25 at 07:59 Folic Acid 1 mg DAILY PO Last administered on 01/03/25at 08:36; Start 01/02/25 at 09:00; Stop 02/01/25 at 08:59 Furosemide 20 mg BID@09,17 PO; Start 01/01/25 at 17:00; Stop 01/01/25 at 15:26; Status DC Apixaban 5 mg BID PO; Start 01/01/25 at 21:00; Stop 01/01/25 at 15:29; Status DC Furosemide 20 mg TIDMEALS PO Last administered on 01/01/25at 17:04; Start 01/01/25 at 17:00; Stop 01/01/25 at 18:18; Status DC Furosemide 40 mg Q8H IV Last administered on 01/03/25at 02:19; Start 01/01/25 at 18:30; Stop 01/03/25 at 09:58; Status DC Potassium Chloride 20 meq BID PO Last administered on 01/03/25at 20:08; Start 01/02/25 at 09:30; Stop 02/01/25 at 09:29 Furosemide 40 mg BID IV; Start 01/03/25 at 16:00; Stop 01/03/25 at 12:23; Status DC Furosemide 40 mg Q12H IV Last administered on 01/04/25at 06:08; Start 01/03/25 at 18:00; Stop 01/31/25 at 18:29 Apixaban 5 mg BID PO Last administered on 01/03/25at 20:07; Start 01/03/25 at 21:00; Stop 02/02/25 at 20:59 PHYSICAL EXAMINATION: GENERAL: No acute distress. HEENT: Normocephalic, atraumatic. CARDIAC: Positive S1 and S2 irregularly irregular. No murmurs. LUNGS: Clear to auscultation bilaterally. ABDOMEN: Bowel sounds present, soft, nontender. EXTREMITIES: No edema bilaterally. NEUROLOGIC: Cranial nerves 2-12 grossly intact. PSYCHIATRIC: Calm. TELEMETRY: Atrial fibrillation with bradycardic events ASSESSMENT: Ischemic cardiomyopathy Coronary artery disease Status post CABG x2 Volume overload PLAN: At this time patient can be dismissed home we will switch over to oral diuretics. The patient will follow up to see me in [facility] in 1-2 weeks. All questions has been answered. ZAHIRA BARRAGAN MD Jan 04, 2025 07:55
[2025-01-04] MEDS ORDERED: AEC81 PO (11:03)
[2025-01-04] MEDS ORDERED: APIX5TAB PO (11:03)
[2025-01-04] MEDS ORDERED: FURO40TA7 PO (11:03)
[2025-01-04] MEDS ORDERED: ATOR40TA69 PO (11:03)
[2025-01-04] MEDS ORDERED: LISI2.5T13 PO (11:03)
--- NOTE | 2025-01-04 11:08 | DS ---
[facility] DISCHARGE SUMMARY Date Patient Seen: Jan 04, 2025 Time of Visit: 11:04 Supervising Physician: Dr Paris Primary Care Physician: Nahun Delarosa Outpatient Specialists: Dr Mercado (cardiology) Inpatient Consults: DR Bartolo FOLEY Attending physician: Dr. Dutton Critical Care Note: PROBLEM LIST: CAD status post CABG x2 12/25/2024 Acute hypoxemic respiratory failure CAP - KLEB AERGE, PMIRABILIS Diastolic heart failure with the EF of 30-35% Intraoperative Afib RVR cardioverted x 2 Postop pulmonary edema Postoperative acute on chronic iron-deficiency anemia Hyperglycemia with a A1c of 6.0 Electrolyte derangement (hypokalemia, hyperphosphatemia, hypomagnesemia) Obesity BMI of 35.4 Comorbidities: Restrictive lung disease Essential hypertension Hyperlipidemia Atrial fibrillation on anticoagulation with the Eliquis last dose on 12/19/24 Iron-deficiency Chronic anemia 60 pack yr smoker HOSPITAL COURSE: HPI CAD status post CABG x2 w/ GIANNA clip placement 12/25/[address] Dutton Pacemaker dependent via epicardial leads Diastolic heart failure with the EF of 30-35% PER intraoperative MAIRA Intraoperative Afib RVR cardioverted x 2 Postop pulmonary edema Postoperative acute on chronic iron-deficiency anemia, POA Hyperglycemia with a A1c of 6.0 Electrolyte derangement (hypokalemia, hyperphosphatemia, hypomagnesemia) Cardiomyopathy Cardiomegaly Obesity BMI of 35.4 Comorbidities: Restrictive lung disease Essential hypertension Hyperlipidemia Atrial fibrillation on anticoagulation with the Eliquis last dose on 12/19/24 Iron-deficiency Chronic anemia Arthritis Hernia Former greater than 10 year smoker HPI: This is an obese, 69-year-old male with a past medical history of coronary artery disease, essential hypertension, arthritis, and restrictive pulmonary disease who presented to [facility] [place]. Patient underwent CABG x2 and left atrial appendage clip today by Dr. Dutton. The patient was treated for the following problems: ACTIVE PROBLEM LIST FOR THE HOSPITALIZATION: CHRONIC PROBLEMS: continue previous management per PCP unless otherwise indicated Restrictive lung disease Essential hypertension Hyperlipidemia Atrial fibrillation on anticoagulation with the Eliquis last dose on 12/19/24 Iron-deficiency Chronic anemia Arthritis Hernia Former greater than 10 year smoker [employer] FINDINGS/RECOMMENDATIONS: [ ] PROCEDURES: as mentioned above CAD status post CABG x2 w/ GIANNA clip placement 12/25/[address] Dutton DISCHARGE MEDICATIONS: per med rec Lisinopril Eliquis Aspirin Statin Oral Lasix 40 Q D Phemodynamically stable and afebrile at time of discharge. PCP notified of patients admission, hospital course and discharge. PHYSICAL EXAM: GENERAL:AAOx3. recovering post CABG HEENT: Sclera non icteric, moist mucosa NECK: Supple, no JVD, trachea midline LUNGS: Coarse Ronchi breath sounds bilaterally. No wheezes. Chest tube in place draining sanguinous HEART: HR regular rate and rythm , S1 and S2 ABD: Abdomen soft, nontender. Bowel sounds present EXT: No clubbing cyanosis or edema, left leg Wilfrid wrap. Bilateral pulses with Doppler. NEURO: [id number] focal defecits. FOLLOW-UP: Follow-up with PCP in 2-3 days RECOMMENDATIONS: See Discharge Instructions This case was seen and discussed with my supervising physician. More than 30 minutes spent on discharge process, including evaluation of the patient, discussion with nursing staff, medication reconciliation and follow-up appointments MAYTE RUIZ Jan 04, 2025 11:08
[2025-01-04] MEDS: LISINOPRIL 2.5 MG TABLET PO SCH (12:42)
--- NOTE | 2025-01-04 16:17 | NUR ---
DISCHARGE HOME SUPERIOR WITH HOME HEALTH SPOKE TO NURSE ST, NO NEED FOR REPORT AT THIS TIME AND PATIENT IS ALREADY SET FOR TOMORROW. DISCHARGE INSTRUCTIONS GIVEN AND EXPLAINED TO PATIENT AND SPOUSE. IV AND TELEPAK REMOVED. BELONGINGS PACKED AND TAKEN BY SPOUSE. PATIENT WHEELED DOWN TO PRIVATE CAR.
--- NOTE | 2025-01-04 18:56 | HMCIMG ---
EXAM: CR Chest, single view. CLINICAL HISTORY: Pp (Hx) / pp (DICOM Hx) (DICOM Hx) COMPARISON: Prior same-day chest radiograph FINDINGS: Poststernotomy status. status. Moderate cardiomegaly and bilateral pulmonary congestion. Mild left-sided pleural effusion with adjacent atelectasis. Linear fibrotic band in the right upper and mid zone. No evidence of pneumothorax. No acute osseous abnormality. IMPRESSION: Poststernotomy status. status. Moderate cardiomegaly and bilateral pulmonary congestion. Mild left-sided pleural effusion with adjacent atelectasis. Linear fibrotic band in the right upper and mid zone. No evidence of pneumothorax. Compared to the prior study, there is no significant interval change. /Raphine
--- NOTE | 2025-01-04 23:34 | HMCIMG ---
EXAM: CR Chest, single view. CLINICAL HISTORY: Ventricular tachycardia. COMPARISON: Prior same-day chest radiograph FINDINGS: Poststernotomy status. Moderate cardiomegaly with bilateral pulmonary congestion. Ill-defined groundglass opacities in the lingula and left lower lobe, probable pulmonary edema or infiltrates. Mild bilateral pleural effusion. No evidence of pneumothorax. Atherosclerotic calcification of the aortic arch and descending thoracic aorta. No acute osseous abnormality. Degenerative changes in the mid and lower thoracic spine and bilateral acromioclavicular joints. IMPRESSION: Poststernotomy status. Moderate cardiomegaly with bilateral pulmonary congestion. Ill-defined groundglass opacities in the lingula and left lower lobe, probable pulmonary edema or infiltrates. Mild bilateral pleural effusion. No evidence of pneumothorax. Compared to the prior study, there is interval development of bilateral pleural effusion and infiltrates in the left lower lobe. /Artie
--- NOTE | 2025-01-06 10:44 | PN ---
SUBJECTIVE: A 69-year-old gentleman status post CABG and left atrial appendage ligation on December 27, coursing postoperative day #9. OBJECTIVE: GENERAL: Awake, alert, in no acute distress. VITAL SIGNS: Stable as recorded in the medical record. CHEST: Sternum stable. Incision sealed. LUNGS: Clear. EXTREMITIES: Warm and well perfused. No evidence of DVT, hematoma, or infection. ASSESSMENT AND PLAN: Status post CABG. PROBLEMS: * Coronary artery disease. Aspirin 81 mg, metoprolol 25 mg twice a day. * Fluid overload. Continue Lasix IV, diurese and pulmonary edema is completely gone. * Deep vein thrombosis prophylaxis. Lovenox 30 mg once a day. * Dyslipidemia. Lipitor 40 mg once a day. PLAN: OT/PT, cardiac rehabilitation discharge planning. From a cardiovascular point of view, he could be discharged. Follow up as an outpatient. TID: [id number] RECEIPT: [id number]
== END 2025-01-04 16:30 | disposition home health service (06) | DRG 235 ==
LOC: DAHIP 12-25 06:30 → 2CV 12-25 09:07 → 2CH 12-26 12:56 → 2AH 12-30 17:24
PROVIDERS: ADMIT Thoracic Surgery (Cardiothoracic Vascular Surgery); ATTEND Thoracic Surgery (Cardiothoracic Vascular Surgery)
PROC: B24BZZ4 Ultrasonography of Heart with Aorta, Transesophageal (ICD-10-PCS; 2024-12-25)
PROC: 02L70CK Occlusion of Left Atrial Appendage with Extraluminal Device, Open Approach (ICD-10-PCS; 2024-12-25)
PROC: 5A09357 Assistance with Respiratory Ventilation, Less than 24 Consecutive Hours, Continuous Positive Airway Pressure (ICD-10-PCS; 2024-12-25)
PROC: 5A1935Z Respiratory Ventilation, Less than 24 Consecutive Hours (ICD-10-PCS; 2024-12-25)
PROC: 02100Z9 Bypass Coronary Artery, One Artery from Left Internal Mammary, Open Approach (ICD-10-PCS; principal; 2024-12-25 08:00)
PROC: 021009W Bypass Coronary Artery, One Artery from Aorta with Autologous Venous Tissue, Open Approach (ICD-10-PCS; 2024-12-25 08:00)
PROC: 06BQ4ZZ Excision of Left Saphenous Vein, Percutaneous Endoscopic Approach (ICD-10-PCS; 2024-12-25 08:00)
PROC: 0PH000Z Insertion of Rigid Plate Internal Fixation Device into Sternum, Open Approach (ICD-10-PCS; 2024-12-25 08:00)
PROC: 5A09357 Assistance with Respiratory Ventilation, Less than 24 Consecutive Hours, Continuous Positive Airway Pressure (ICD-10-PCS; 2024-12-26)
PROC: 30233N1 Transfusion of Nonautologous Red Blood Cells into Peripheral Vein, Percutaneous Approach (ICD-10-PCS; 2024-12-27)
PROC: 5A09357 Assistance with Respiratory Ventilation, Less than 24 Consecutive Hours, Continuous Positive Airway Pressure (ICD-10-PCS; 2024-12-27)
DX: I25.10 Atherosclerotic heart disease of native coronary artery without angina pectoris (principal); J15.0 Pneumonia due to Klebsiella pneumoniae; J96.01 Acute respiratory failure with hypoxia; I48.19 Other persistent atrial fibrillation; I50.32 Chronic diastolic (congestive) heart failure; I97.791 Other intraoperative cardiac functional disturbances during other surgery; D62 Acute posthemorrhagic anemia; E66.9 Obesity, unspecified; E78.5 Hyperlipidemia, unspecified; E83.39 Other disorders of phosphorus metabolism; E83.42 Hypomagnesemia; E87.6 Hypokalemia; I11.0 Hypertensive heart disease with heart failure; I25.5 Ischemic cardiomyopathy; J98.4 Other disorders of lung; K40.90 Unilateral inguinal hernia, without obstruction or gangrene, not specified as recurrent; E11.65 Type 2 diabetes mellitus with hyperglycemia; F17.290 Nicotine dependence, other tobacco product, uncomplicated; I42.0 Dilated cardiomyopathy; I49.8 Other specified cardiac arrhythmias; Z79.82 Long term (current) use of aspirin; Z68.35 Body mass index [BMI] 35.0-35.9, adult; Z79.01 Long term (current) use of anticoagulants; Z86.73 Personal history of transient ischemic attack (TIA), and cerebral infarction without residual deficits; Z79.899 Other long term (current) drug therapy; Z99.81 Dependence on supplemental oxygen
CPT/HCPCS: 36415; 36430; 36600; 71045; 80048; 80053; 80061; 82330; 82435; 82803; 82947; 82948; 83036; 83605; 83735; 83880; 84100; 84132; 84145; 84295; 84484; 85018; 85025; 85027; 85347; 85610; 85730; 86850; 86900; 86901; 86923; 87071; 87086; 87186; 87205; 87641; 93005; 93308; 93312; 93325; 93880; 94002; 94010; 94150; 94640; 94660; 94664; 94667; 94668; 94760; 97161; A4450; A7048; G0378; J0169; J0282; J0690; J1644; J1650; J1756; J1815; J1938; J2003; J2250; J2260; J2405; J2440; J2543; J2704; J2720; J3010; J3411; J3475; J3480; J3490; J7030; J7040; J7050; J7060; P9016; P9045; A4215; A4216; A4221; A4222; A4223; A4649; A4663; A4930; A5120; A6204; A6260; A7040; A9900; C1713; C1776; C1887; J0283